=== PATIENT | female | born 1955 | race Caucasian/White ===

== ENCOUNTER 2019-06-14 11:30 | Outpatient (CLI) | payer BC, SELFPAY ==
--- NOTE | ~2019-06-14 | MM_ITS ---
EXAMINATION: MM screening [facility]ia BI w yvon HISTORY: Screening mammogram TECHNIQUE: Craniocaudal and mediolateral oblique 3-D tomosynthesis images were obtained and synthetic 2-D images were generated. CAD analysis was submitted and interpreted. COMPARISON: 6 06/01/2018, 05/07/2017, 02/11/2016 bilateral digital screening mammogram examinations BREAST PARENCHYMAL COMPOSITION: There are scattered areas of fibroglandular density. FINDINGS: There is no evidence of suspicious mass, calcification, or architectural distortion to sugg est malignancy in either breast. There has been no suspicious interval change. IMPRESSION: 1. No mammographic evidence of malignancy. 2. Recommend routine screening mammography in one year. BI-RADS Category 1: Negative Reviewed, dictated and finalized at location A. ENTER/LABOR
== END 2019-06-14 11:31 | disposition home or self-care (01) ==
LOC: ANHIMG 11:34
PROVIDERS: PCP Family Medicine; Visit Provider Obstetrics & Gynecology
DX: Z12.31 Encounter for screening mammogram for malignant neoplasm of breast (principal)
CPT/HCPCS: 77063; 77067

== ENCOUNTER 2019-11-16 11:09 | Emergency (ER) | payer BC, SELFPAY ==
[2019-11-16 11:15] VITALS: BP 151/76; PULSE 74; RESP 16; TEMP 36.3; O2SAT 99
[2019-11-16 11:16] LABS: Glucose Point of Care 166 (65-105)
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
[2019-11-16 11:42] LABS: Basophils Absolute Auto 0.1 K/mm3 (0.0-0.1); Basophils Percent Auto 1.1 % (0.2-1.2); Eosinophils Absolute Auto 0.2 K/mm3 (0-0.3); Eosinophils Percent Auto 3.1 % (0-4.4); Hematocrit 57.7 % (37.0-47.0); Hemoglobin 17.6 g/dL (12.0-15.0); Immature Granulocyte Absolute 0.02 K/mm3 (0.00-0.031); Immature Granulocyte Percent A 0.3 % (0-0.5); Lymphocytes Absolute Auto 1.09 K/mm3 (0.9-3.2); Lymphocytes Percent Auto 15.2 % (18.3-44.2); Mean Corpuscular HGB Conc 30.5 g/dl (32-36); Mean Corpuscular Hemoglobin 24.1 pg (26-34); Mean Corpuscular Volume 79.1 fl (80-100); Mean Platelet Volume 10.7 fl (7.4-10.4); Monocytes Absolute Auto 0.4 K/mm3 (0.1-0.6); Monocytes Percent Auto 5.3 % (2.6-8.5); Neutrophils Absolute Auto 5.4 K/mm3 (1.3-6.7); Platelet Count Result 259 k/mm3 (150-375); Red Blood Count 7.29 M/mm3 (4.2-5.4); Red Cell Distribution Width 17.2 % (11.5-14.5); White Blood Count 7.2 K/mm3 (4.5-10.0)
[2019-11-16 11:53] LABS: Blood Urea Nitrogen 19 mg/dL (7-17); Calcium 9.4 mg/dL (8.4-10.2); Carbon Dioxide 31 mmol/L (22-30); Chloride 96 mmol/L (98-107); Estimated CRCL calculation 63 ml/min; Estimated Glomerular Filt Rate > 60; Glucose 170 mg/dL (65-105); Potassium 3.8 mmol/L (3.4-5.0); Sodium 134 mmol/L (137-145)
[2019-11-16 13:20] VITALS: BP 152/66; PULSE 68; RESP 16; O2SAT 98
[2019-11-16 13:39] VITALS: BP 152/66; PULSE 68; RESP 18; TEMP 37; O2SAT 99
== END 2019-11-16 13:41 | disposition home or self-care (01) ==
PROVIDERS: Emergency Medicine Emergency Medical Services; Emergency Provider Emergency Medicine; PCP Family Medicine
DX: E10.649 Type 1 diabetes mellitus with hypoglycemia without coma (principal); Z79.4 Long term (current) use of insulin; Z96.41 Presence of insulin pump (external) (internal); E78.5 Hyperlipidemia, unspecified; Z86.73 Personal history of transient ischemic attack (TIA), and cerebral infarction without residual deficits; M17.12 Unilateral primary osteoarthritis, left knee; Z87.891 Personal history of nicotine dependence; Z79.82 Long term (current) use of aspirin
CPT/HCPCS: 36415; 80048; 85025; 99283

== ENCOUNTER 2019-12-06 00:35 | Emergency (ER) | payer BC, SELFPAY ==
[2019-12-06 00:34] VITALS: BP 187/138; PULSE 63; RESP 21; O2SAT 97
[2019-12-06 00:42] VITALS: RESP 18
--- NOTE | 2019-12-06 00:42 | ECG_ITS ---
Measurements Intervals [place] Rate: 58 P: 5 NE: 149 QRS: 29 QRSD: 93 T: 34 QT: 431 QTc: 424 Interpretive Statements SINUS BRADYCARDIA BASELINE ARTIFACT- I, III, V1 BORDERLINE ECG Electronically Signed On 12-06-2019 7:17:08 CDT by Everton Trent D.O.
[2019-12-06 00:51] LABS: Glucose Point of Care 177 (65-105)
[2019-12-06 01:10] LABS: Basophils Absolute Auto 0.2 K/mm3 (0.0-0.1); Basophils Percent Auto 1.1 % (0.2-1.2); Eosinophils Absolute Auto 0.3 K/mm3 (0-0.3); Eosinophils Percent Auto 2.4 % (0-4.4); Hematocrit 60.4 % (37.0-47.0); Immature Granulocyte Absolute 0.06 K/mm3 (0.00-0.031); Immature Granulocyte Percent A 0.4 % (0-0.5); Lymphocytes Absolute Auto 1.19 K/mm3 (0.9-3.2); Lymphocytes Percent Auto 8.5 % (18.3-44.2); Mean Corpuscular HGB Conc 31.5 g/dl (32-36); Mean Corpuscular Hemoglobin 24.4 pg (26-34); Mean Corpuscular Volume 77.5 fl (80-100); Mean Platelet Volume 11.3 fl (7.4-10.4); Monocytes Absolute Auto 0.9 K/mm3 (0.1-0.6); Monocytes Percent Auto 6.7 % (2.6-8.5); Neutrophils Absolute Auto 11.3 K/mm3 (1.3-6.7); Neutrophils Percent Auto 80.9 % (45.5-73.1); Platelet Count Result 381 k/mm3 (150-375); Red Blood Count 7.79 M/mm3 (4.2-5.4); Red Cell Distribution Width 18.4 % (11.5-14.5)
[2019-12-06 01:19] LABS: Add Urine Microscopic? YES; Appearance Urine Clear (Clear); Bilirubin Urine Negative (Negative); Blood Urine Negative (Negative); Color Urine Straw (Yellow); Glucose Urine UA 2+ mg/dL (Negative); Ketones Urine Negative (Negative); Leukocyte Esterase Ur Negative LEU/UL (Negative); Nitrate Urine Negative (Negative); Protein Urine 2+ mg/dL (Negative); RBC Urine 0-2 /hpf (0-2); Specific Grav Ur 1.014 (1.001-1.035); Urobilinogen Urine Negative mg/dL (<2.0); WBC Urine 0-3 /hpf
[2019-12-06 01:22] LABS: Alanine Aminotransferase 49 U/L (4-35); Albumin Level 4.9 g/dL (3.5-5.1); Alkaline Phosphatase 107 U/L (38-126); Aspartate Amino Transferase 73 U/L (14-36); Bilirubin,Total 1.2 mg/dL (0.2-1.3); Blood Urea Nitrogen 25 mg/dL (7-17); Calcium 9.5 mg/dL (8.4-10.2); Carbon Dioxide 32 mmol/L (22-30); Chloride 95 mmol/L (98-107); Estimated CRCL calculation 39 ml/min; Estimated Glomerular Filt Rate 50; Glucose 145 mg/dL (65-105); Sodium 138 mmol/L (137-145)
--- NOTE | 2019-12-06 01:31 | ED.AMS ---
HPI - Altered Mental Status General Chief Complaint: Altered Mental Status Stated Complaint: low bs Time Seen by Provider: 12/06/19 00:50 History of Present Illness HPI narrative: Patient presents via EMS from her home, for low blood sugar, loss of consciousness, and fall from bed. She wears an insulin pump for her diabetes, with Humalog. She denies taking any long-acting insulin. Her son heard a thump and went up and found her on the floor unconscious. EMS found her sugar to be 27, and gave her D10 which revived her. She is fully back to consciousness, and has no pain from the fall. This is happened to her before. She does not smoke cigarettes, she sometimes drinks alcohol, and she does marijuana. Her surgeries include repair of a leg fracture. MD complaint: altered mental status Onset (ago): hour(s) Timing confirmed by: family member Severity: similar to previous episodes Context: history of similar presentation Associated symptoms: denies other symptoms Treatments prior to arrival: glucose Related Data Home Medications Medication Instructions Recorded Confirmed aspirin 81 mg tablet,delayed 81 mg PO DAILY 04/19/19 08/02/19 release biotin 1,000 mcg chewable tablet 1,000 mcg PO DAILY 04/19/19 08/02/19 cholecalciferol (vitamin D3) 25 1,000 unit PO DAILY 04/19/19 08/02/19 mcg (1,000 unit) capsule vitamin B12 1,000 mcg-folic acid lozenge SUBLINGUAL 04/19/19 08/02/19 400 mcg sublingual lozenge vitamin E 400 unit capsule 400 unit PO DAILY 04/19/19 08/02/19 gabapentin 600 mg PO BID 11/16/19 oxybutynin chloride 5 mg tablet 15 mg PO TID tablet 11/17/19 oxycodone 5 mg capsule 5 mg PO Q8H PRN 11/17/19 Allergies Allergy/AdvReac Type Severity Reaction Status Date / Time No Known Allergies Allergy Verified 06/03/19 16:19 Review of Systems Review of Systems: Narrative: CONSTITUTIONAL: Denies fever, chills, or sweats. EYES: Denies visual changes, redness, or discharge. ENT: Denies rhinorrhea, congestion, sore throat, or otalgia. CARDIOVASCULAR: Denies chest pain, palpitations, or edema. RESPIRATORY: Denies cough or dyspnea. GASTROINTESTINAL: Denies abdominal pain, nausea, vomiting, or diarrhea. GENITOURINARY: Denies dysuria or hematuria. SKIN: Denies rash or itching. MUSCULOSKELETAL: Denies back pain, joint pain, or myalgia. NEUROLOGIC: Denies headache, numbness, or weakness. [facility] Past Medical History Medical History Acquired hypothyroidism Anemia History of stroke HLD (hyperlipidemia) Hypothyroid Insomnia Localized osteoarthritis of left knee OAB (overactive bladder) Type 1 diabetes mellitus with hyperglycemia Surgical History Surgical History H/O tubal ligation Family History Family History (Updated 11/25/18 @ 08:51 by DOCTOR UNKNOWN) Mother Family history of diabetes mellitus in first degree relative Other Diabetes mellitus Family history of thyroid disease Social History Social History (Updated 12/06/19 @ 01:33 by Safia Crowder MD) Smoking status: Former smoker Smoking end date: 05/18/10 Alcohol intake: current Substance use: current Substance use type: marijuana Gender identity (if verbalized by the patient): Male Exam Narrative: Exam Narrative: GENERAL: Well-appearing, well-nourished, and in no acute distress. She has an abrasion on the tip of her nose. HEAD: Normocephalic, atraumatic. EYES: PERRLA and EOMI. ENT: Nares clear, no rhinorrhea or epistaxis. Mucous membranes moist. NECK: Supple. CHEST: Clear to auscultation. No respiratory distress. HEART: Regular rate and rhythm. No murmur heard. Normal peripheral pulses. ABDOMEN: Soft, nontender, nondistended, normal active bowel sounds. EXTREMITIES: Normal range of motion. No edema. Feet are cool. SKIN: Warm, dry, no rash. NEURO: No focal deficits. Alert and oriented x3. PSYCH: Normal mood and affect.
[2019-12-06] MEDS: SODIUM CHLORIDE 0.9% IV 1,000 ML 999 ML IV CONT (01:45)
[2019-12-06 02:02] LABS: Amphetamine Screen Urine Negative (Negative); Barbiturate Screen Urine Negative (Negative); Benzodiazepines Screen Urine Negative (Negative); Cannabinoid Screen Urine Positive (Negative); Cocaine Screen Urine Negative (Negative); Methadone Screen Urine Negative (Negative); Opiate Screen Urine Negative (Negative); Phencyclidine Screen Urine Negative (Negative)
[2019-12-06 02:28] VITALS: BP 160/74; PULSE 70; RESP 15; O2SAT 94
[2019-12-06 03:25] LABS: Ethanol < 10 mg/dL (<10)
[2019-12-06 03:40] VITALS: BP 152/70; PULSE 71; RESP 16; O2SAT 96
[2019-12-06 03:58] LABS: Glucose Point of Care 237 (65-105)
--- NOTE | 2019-12-06 04:10 | PC.NURSE ---
Patient given meal at this time.
[2019-12-06 05:05] VITALS: BP 149/88; PULSE 67; RESP 19; TEMP 36.6; O2SAT 96
== END 2019-12-06 05:09 | disposition home or self-care (01) ==
PROVIDERS: Emergency Provider Emergency Medicine; PCP Family Medicine
DX: D75.1 Secondary polycythemia (principal); D47.3 Essential (hemorrhagic) thrombocythemia; E88.09 Other disorders of plasma-protein metabolism, not elsewhere classified; E10.649 Type 1 diabetes mellitus with hypoglycemia without coma; R55 Syncope and collapse; R94.5 Abnormal results of liver function studies; D72.829 Elevated white blood cell count, unspecified; W06.XXXA Fall from bed, initial encounter; Z87.891 Personal history of nicotine dependence; E78.5 Hyperlipidemia, unspecified; E03.9 Hypothyroidism, unspecified
CPT/HCPCS: 36415; 80053; 80307; 81001; 81025; 82948; 85025; 93005; 96360; 99284; J7030

== ENCOUNTER 2020-04-18 14:30 | Outpatient (RCR) | payer BC, SELFPAY | END 2020-04-20 16:15 | disposition home or self-care (01) | LOC: ANHDMC 14:30 | PROVIDERS: PCP Family Medicine; Visit Provider Internal Medicine Endocrinology, Diabetes & Metabolism | DX: E10.9 Type 1 diabetes mellitus without complications (principal); Z71.89 Other specified counseling | CPT/HCPCS: G0108; G0109 ==

== ENCOUNTER 2020-05-09 23:44 | Inpatient (IN) | payer BC, SELFPAY ==
--- NOTE | ~2020-05-09 | CT_ITS ---
EXAMINATION: CT brain wo con EXAM DATE: 05/10/2020 00:18 INDICATION: Altered mental status. TECHNIQUE: Spiral CT of the head was performed without contrast. Axial, coronal and sagittal images were reviewed. The dose-length product (DLP) for this examination was 605.33 mGy-cm. The exposure w as tailored according to patient size, and iterative reconstruction (ASIR) was used as additional dos e reduction technique. Comparison is made to prior examination from 09/07/2017. FINDINGS: There is no acute intraparenchymal hemorrhage. No evidence of intraparenchymal brain mass lesion. No evidence of acute infarction. Please note that initial head CT has limited sensitivity f or small or acute infarctions. Moderate-sized old left frontal lobe infarction. There is mild periv entricular and subcortical hypodensity, nonspecific but probably related to small vessel ischemic dis ease. There is mild prominence of the sulci and ventricles related to cerebral atrophy. There is intracranial carotid arteriosclerosis. There are no extra-axial collections. There is no mass effect or midline shift. The orbits are unremarkable. Soft tissue is unremarkable. The visua lized sinuses and mastoid air cells are well aerated. IMPRESSION: 1. Moderate size old left frontal lobe infarction. 2. Chronic age related findings. Reviewed, dictated and finalized at location A. RMAN
--- NOTE | ~2020-05-09 | XR_ITS ---
EXAMINATION: XR chest 1V portable EXAM DATE: 05/10/2020 01:04 INDICATION: Transient alteration of awareness. TECHNIQUE: Portable AP frontal chest x-ray was obtained. There is no prior study for comparison. FINDINGS: The lungs are clear. There are no pleural effusions. The cardiomediastinal silhouette is within normal limits. There is no pneumothorax suspected. The bones and soft tissues are unremarkab le. IMPRESSION: No acute cardiopulmonary findings. Reviewed, dictated and finalized at location A. NG STUFFER
--- NOTE | 2020-05-09 23:42 | ECG_ITS ---
Measurements Intervals [place] Rate: 95 P: 66 MA: 108 QRS: 39 QRSD: 104 T: 10 QT: 369 QTc: 466 Interpretive Statements SINUS RHYTHM WITH SHORT MA INTERVAL BORDERLINE T WAVE ABNORMALITY- INFERIOR LEADS BASELINE ARTIFACT- V3 BORDERLINE ECG Electronically Signed On 05-10-2020 8:00:25 FUR SORTER by Everton Trent D.O.
[2020-05-09 23:46] VITALS: BP 114/73; PULSE 105; RESP 15; TEMP 36.6; O2SAT 98
--- NOTE | 2020-05-09 23:49 | ED.AMS ---
HPI - Altered Mental Status General Chief Complaint: Altered Mental Status Stated Complaint: vomiting blood/ AMS Source: EMS Mode of arrival: EMS Limitations: altered mental status History of Present Illness HPI narrative: Patient is a 64-year-old female with a history of type 1 diabetes who presents for evaluation of altered mental status. Patient's son reportedly called this evening after she had an episode of bloody emesis around 9 PM, and became confused. Confusion persisted over the past 3 hours, patient had another episode of bloody emesis and EMS was called. The time of arrival, patient is confused, alert to person, not to place or time. Baseline status is ANO x4. Patient is known to the EMS crew for typically being hypoglycemic, however patient was hyperglycemic with [id number] measurement tonight. Patient with oxygen saturations at 86% on room air, thus patient was placed on a nonrebreather and transported to our facility. At the time of assessment, patient is transiently oriented to person and place, not to time. She is able to follow simple commands, not able to provide any details regarding history or events this evening. Related Data Home Medications Medication Instructions Recorded Confirmed aspirin 81 mg tablet,delayed 81 mg PO DAILY 04/19/19 08/02/19 release biotin 1,000 mcg chewable tablet 1,000 mcg PO DAILY 04/19/19 08/02/19 cholecalciferol (vitamin D3) 25 1,000 unit PO DAILY 04/19/19 08/02/19 mcg (1,000 unit) capsule vitamin B12 1,000 mcg-folic acid lozenge SUBLINGUAL 04/19/19 08/02/19 400 mcg sublingual lozenge vitamin E 400 unit capsule 400 unit PO DAILY 04/19/19 08/02/19 oxybutynin chloride 5 mg tablet 15 mg PO TID tablet 11/17/19 oxycodone 5 mg capsule 5 mg PO Q8H PRN 11/17/19 Allergies Allergy/AdvReac Type Severity Reaction Status Date / Time No Known Allergies Allergy Verified 06/03/19 16:19 Review of Systems Review of Systems: ROS unobtainable: Yes unobtainable due to mental status PMFSH Past Medical History Medical History Acquired hypothyroidism Anemia History of stroke HLD (hyperlipidemia) HTN (hypertension) Hypothyroid Insomnia Localized osteoarthritis of left knee OAB (overactive bladder) Type 1 diabetes mellitus with hyperglycemia Surgical History Surgical History H/O tubal ligation Family History Family History Mother Family history of diabetes mellitus in first degree relative Other Diabetes mellitus Family history of thyroid disease Social History Social History Smoking status: Former smoker Smoking end date: 05/18/10 Alcohol intake: current Substance use: current Substance use type: marijuana Gender identity (if verbalized by the patient): Male Exam Narrative: Exam Narrative: GENERAL: Awake, alert, confused HEAD: Normocephalic, atraumatic. EYES: PERRLA and EOMI. ENT: Nares clear, no rhinorrhea or epistaxis. Mucous membranes moist. Dried blood present around the mouth. NECK: Supple. CHEST: No respiratory distress, breathing even and non labored HEART: Regular rate, sinus rhythm ABDOMEN:Non distended, non tender EXTREMITIES: Normal range of motion. No edema. SKIN: Warm, dry, no rash. NEURO:No focal deficits. Mold Preparer strength out of 5 bilaterally. Strength in the upper and lower extremities 5 out of 5 bilaterally. No facial droop. No tongue deviation. Alert to person, place, not to time. Disoriented. Course Vital Signs Vital signs: Vital Signs Temperature 36.6 C 05/09/20 23:46 Pulse Rate 105 H 05/09/20 23:46 Respiratory Rate 15 05/09/20 23:46 Blood Pressure 114/73 05/09/20 23:46 Pulse Oximetry 98 05/09/20 23:46 Temperature 36.6 C 05/09/20 23:46 Pulse Rate 105 H 05/09/20 23:46 Respiratory Rat
[2020-05-10] VITALS (33 sets, daily range): BP systolic 70–140; BP diastolic 36–94; PULSE 90–125; RESP 17–27; TEMP 35.9–37.2; O2SAT 89–100; BMI 17.6
[2020-05-10 00:04] LABS: Alveolar/Arterial O2 Gradient 68.9 mmHg; Base Excess ABG -15.5 mEq/l (+/-2.0); Carboxyhemoglobin 1.4 % THb (0-2.0); Fractional Inspired Oxygen 21 %; HCO3 ABG 10.4 mEq/l (22.0-26.0); Methemoglobin ABG 0.6 %THb (0-1.5); Oxygen Content ABG 17.4 %vol (16.0-22.0); Oxyhemoglobin 79.2 % THb (90.0-100.0); PCO2 ABG 25.9 mmHg (35.0-45.0); PO2 FiO2 Ratio Arterial Blood 2.37 %; Reduced Hemoglobin 18.8 %THb (0-5.0); Total Hemoglobin 15.7 g/dL (12.0-18.0)
[2020-05-10] MEDS: ONDANSETRON INJ 4 MG/2 ML VIAL IV PUSH (00:05)
[2020-05-10] MEDS: SODIUM CHLORIDE 0.9% IV 1,000 ML 999 ML IV CONT ×3 (00:05→04:30)
[2020-05-10 00:08] LABS: PO2 ABG 49.8 mmHg (80.0-100.0); pH ABG 7.221 (7.350-7.450)
[2020-05-10 00:09] LABS: Device ROOM AIR; Modified Allen's Test Pass; Oxygen Saturation ABG 78.6 % (95.0-100.0); Site Drawn LEFT RADIAL
[2020-05-10 00:40] LABS: Basophils Absolute Auto 0.1 K/mm3 (0.0-0.1); Basophils Percent Auto 0.2 % (0.2-1.2); Eosinophils Absolute Auto 0.1 K/mm3 (0-0.3); Eosinophils Percent Auto 0.2 % (0-4.4); Hematocrit 49.7 % (37.0-47.0); Hemoglobin 15.1 g/dL (12.0-15.0); Immature Granulocyte Absolute 1.38 K/mm3 (0.00-0.031); Immature Granulocyte Percent A 3.7 % (0-0.5); Lymphocytes Absolute Auto 2.74 K/mm3 (0.9-3.2); Lymphocytes Percent Auto 7.3 % (18.3-44.2); Mean Corpuscular HGB Conc 30.4 g/dl (32-36); Mean Corpuscular Hemoglobin 23.8 pg (26-34); Mean Corpuscular Volume 78.4 fl (80-100); Monocytes Absolute Auto 2.8 K/mm3 (0.1-0.6); Monocytes Percent Auto 7.3 % (2.6-8.5); Neutrophils Absolute Auto 30.4 K/mm3 (1.3-6.7); Neutrophils Percent Auto 81.3 % (45.5-73.1); Platelet Count Result 576 k/mm3 (150-375); Red Blood Count 6.34 M/mm3 (4.2-5.4); Red Cell Distribution Width 18.6 % (11.5-14.5); White Blood Count 37.5 K/mm3 (4.5-10.0)
[2020-05-10 00:43] LABS: Glucose Point of Care > 500 (65-105)
[2020-05-10] MEDS: HALOPERIDOL LACTATE 5 MG/ML VIAL IV PUSH (00:43)
[2020-05-10 00:55] LABS: Alanine Aminotransferase 28 U/L (4-35); Alkaline Phosphatase 120 U/L (38-126); Anion Gap 27 mmol/L (8-16); Aspartate Amino Transferase 30 U/L (14-36); Bilirubin,Total 2.9 mg/dL (0.2-1.3); Blood Urea Nitrogen 42 mg/dL (7-17); Calcium 8.6 mg/dL (8.4-10.2); Carbon Dioxide 12 mmol/L (22-30); Chloride 88 mmol/L (98-107); Estimated CRCL calculation 41 ml/min; Estimated Glomerular Filt Rate 42; Potassium 5.6 mmol/L (3.4-5.0); Sodium 127 mmol/L (137-145)
[2020-05-10 00:59] LABS: INR 1.4; Partial Thromboplastin Time 36.8 SECONDS (22.3-36.8); Prothrombin Time 18.2 Seconds (11.1-14.7)
[2020-05-10 00:59] LABS: Ammonia 22 umol/L (9-30)
[2020-05-10] MEDS: LORazepam INJ (*CRX) 2 MG/ML VIAL 1 MG IV PUSH (01:01)
[2020-05-10 01:02] LABS: Anisocytosis 1+ (NORMAL); Platelet Estimate Adequate (Adequate)
[2020-05-10 01:06] LABS: Troponin I 0.012 ng/mL (0.000-0.034)
[2020-05-10] MEDS: diphenhydrAMINE HCl INJ 50 MG/ML VIAL 25 MG IV PUSH (01:07)
[2020-05-10 01:08] LABS: Lactic Acid Reflex 4.2 mmol/L (0.7-2.1)
[2020-05-10 01:09] LABS: Glucose 737 mg/dL (65-105)
[2020-05-10] MEDS: LORazepam INJ (*CRX) 2 MG/ML VIAL IV PUSH (01:50)
[2020-05-10] MEDS: INSULIN HUMAN REGULAR (*BKC) 100 UNITS/ML 7 UNITS IV PUSH (01:57)
[2020-05-10] MEDS: INSULIN HUMAN REGULAR (*BKC) 100 UNITS in SODIUM CHLORIDE 0.9% IV 99 ML 8.8 UNITS IV CONT (02:08)
--- NOTE | 2020-05-10 03:02 | PM.IMHP ---
H&P: HPI History of Present Illness Date/Time: 05/10/20 03:02 Chief Complaint: Hyperglycemia and altered mental status Narrative: This is a 64-year-old type 1 diabetic female who is also known to have chronic hypothyroidism and presented to the hospital this evening for evaluation of acute altered mental status. The patient's son who is at bedside states that she has had nausea and vomiting for the past 2 days and became increasingly confused this evening. She had 1 episode of bloody emesis around 9:00 p.m. and her son found her to be confused. The patient is known to use an insulin pump and her son is not sure if the patient accidentally shot it off or paused it. EMS was called and the patient was found to be hypoxic on room air and hyperglycemic. The patient was evaluated emergency room this evening and found to be in acute DKA and severely dehydrated. Routine labs [place] [address], a blood glucose level of 737 mg/dl, and anion gap of 27, a serum bicarb level of 12, and a lactic acid of 4.2. The patient was treated with 2 L of IV fluidNS bolus, wide-spectrum antibiotics IV, and IV insulin. the patient did become combative and uncooperative and was treated with various doses IV Ativan, Haldol, and Benadryl. On my encounter with the patient this evening she is medicated and very somnolent. She cannot answer any questions appropriately. ER provider has consulted our harness fitter. Urinalysis is currently pending. The patient arrived to the ICU from the ER severely hypotensive with blood pressures of 70s/40s. Review of Systems Review of Systems: ROS unobtainable: Yes unobtainable due to medical condition and unobtainable due to mental status PMF Past Medical History Medical History Acquired hypothyroidism Anemia History of stroke HLD (hyperlipidemia) HTN (hypertension) Hypothyroid Insomnia Localized osteoarthritis of left knee OAB (overactive bladder) Type 1 diabetes mellitus with hyperglycemia Surgical History Surgical History H/O tubal ligation Family History Family History Mother Family history of diabetes mellitus in first degree relative Other Diabetes mellitus Family history of thyroid disease Social History Social History Smoking status: Former smoker Smoking end date: 05/18/10 Alcohol intake: current Substance use: current Substance use type: marijuana Gender identity (if verbalized by the patient): Male Spiritual care concerns: No Meds Home Medications and Allergies Home Medications Medication Instructions Recorded Confirmed Type aspirin 81 mg tablet,delayed 81 mg PO DAILY 04/19/19 05/10/20 History release biotin 1,000 mcg chewable tablet 1,000 mcg PO DAILY 04/19/19 05/10/20 History cholecalciferol (vitamin D3) 25 1,000 unit PO DAILY 04/19/19 05/10/20 History mcg (1,000 unit) capsule atorvastatin 20 mg tablet 20 mg PO DAILY #90 tablet 08/18/19 05/10/20 Rx oxybutynin chloride 5 mg tablet 15 mg PO TID tablet 11/17/19 05/10/20 History oxycodone 5 mg capsule 5 mg PO Q8H PRN 11/17/19 05/10/20 History insulin aspart (niacinamide) See Rx Instructions SUBCUT DAILY 03/06/20 05/10/20 Rx (U-100) 100 unit/mL subcutaneous 90 Days #60 ml solution levothyroxine 150 mcg tablet 150 mcg PO DAILY 31 Days #31 tablet 03/15/20 05/10/20 Rx gabapentin 300 mg capsule 600 mg PO TID #180 cap 04/09/20 05/10/20 Rx nadolol 40 mg tablet See Rx Instructions .ROUTE 04/18/20 05/10/20 Rx .COMPLEX #45 each trazodone 100 mg tablet 100 mg PO DAILY #60 tablet 04/25/20 05/10/20 Rx ondansetron 4 mg disintegrating 4 mg PO Q8H PRN #12 tablet 05/09/20 05/10/20 Rx tablet Allergies Allergy/AdvReac Type Severity Reaction Status Date / Time No Known A
[2020-05-10 03:36] LABS: Glucose Point of Care > 500 (65-105)
[2020-05-10] MEDS: INSULIN HUMAN REGULAR (*BKC) 100 UNITS in SODIUM CHLORIDE 0.9% IV 99 ML 13.5 UNITS IV CONT (03:36)
[2020-05-10 03:38] LABS: Reflex Lactic Acid Yes or No Add Lactic
[2020-05-10] MEDS: SODIUM CHLORIDE 0.9% IV 1,000 ML 150 ML IV CONT ×2 (04:17→10:15)
[2020-05-10 04:47] LABS: Add Urine Microscopic? YES; Appearance Urine Clear (Clear); Bilirubin Urine Negative (Negative); Blood Urine Negative (Negative); Color Urine Yellow (Yellow); Glucose Urine UA 3+ mg/dL (Negative); Ketones Urine 1+ mg/dL (Negative); Leukocyte Esterase Ur Negative LEU/UL (Negative); Nitrate Urine Negative (Negative); Protein Urine Negative (Negative); RBC Urine 0-2 /hpf (0-2); Specific Grav Ur 1.017 (1.001-1.035); Squamous Epithelial Cell Urine Rare /hpf (Few); Urobilinogen Urine Negative mg/dL (<2.0); WBC Urine 0-3 /hpf
[2020-05-10 04:53] LABS: Glucose Point of Care > 500 (65-105)
[2020-05-10 04:55] LABS: Amphetamine Screen Urine Negative (Negative); Barbiturate Screen Urine Negative (Negative); Benzodiazepines Screen Urine Negative (Negative); Cannabinoid Screen Urine Negative (Negative); Cocaine Screen Urine Negative (Negative); Methadone Screen Urine Negative (Negative); Opiate Screen Urine Negative (Negative); Phencyclidine Screen Urine Negative (Negative)
[2020-05-10 04:59] LABS: Alveolar/Arterial O2 Gradient 32.4 mmHg; Base Excess ABG -16.4 mEq/l (+/-2.0); Fractional Inspired Oxygen 21 %; HCO3 ABG 9.8 mEq/l (22.0-26.0); Oxygen Content ABG 17.2 %vol (16.0-22.0); Oxyhemoglobin 94.5 % THb (90.0-100.0); PCO2 ABG 24.9 mmHg (35.0-45.0); PO2 ABG 87.5 mmHg (80.0-100.0); PO2 FiO2 Ratio Arterial Blood 4.17 %; Total Hemoglobin 12.9 g/dL (12.0-18.0)
[2020-05-10 05:02] LABS: Device ROOM AIR; Modified Allen's Test Pass; Site Drawn RIGHT RADIAL; pH ABG 7.211 (7.350-7.450)
[2020-05-10 05:51] LABS: Hemoglobin 12.1 g/dL (12.0-15.0); Mean Corpuscular HGB Conc 29.5 g/dl (32-36); Mean Corpuscular Hemoglobin 23.4 pg (26-34); Mean Corpuscular Volume 79.5 fl (80-100); Mean Platelet Volume 11.3 fl (7.4-10.4); Platelet Count Result 385 k/mm3 (150-375); Red Blood Count 5.16 M/mm3 (4.2-5.4); Red Cell Distribution Width 16.9 % (11.5-14.5); White Blood Count 34.6 K/mm3 (4.5-10.0)
--- NOTE | 2020-05-10 06:08 | WPDPROCEDUR ---
Procedures Central Line Placement Right Femoral: Central Line Date: 05/10/20 Central Line Time: 05:45 Performed Emergently - Given emergent patient condition, temporal constraints may have precluded informed consent.: Yes Time Out Performed: Yes Patient Position: supine Patient placed on monitor/pulse ox: Yes Provider Prep: mask, sterile gown, sterile gloves, Max. sterile barrier precautions, cap and hand hygiene with conventional soap/water or alcohol based hand rub Central line prep: 2% Chlorhexidine scrub Local anesthesia used: lidocaine 1% Amount of anesthesia used (ml): 4 Sterile US Technique with sterile gel/sterile probe covers: Yes Central line lumen inserted: triple [place]: 7 Length (cm): 20 Depth of Insertion (cm): 20 Post Procedure: sutured in place, good blood return, all ports aspirated, flushed, capped, transparent dressing, securement product and aseptic technique maintained throughout procedure Patient tolerated procedure: well Complications: none Additional comments: Date of service was 05/10/2020 at 05:45 hrs.
[2020-05-10 06:14] LABS: Lactic Acid 3.6 mmol/L (0.7-2.1)
[2020-05-10 06:27] LABS: Band Neutrophils Percent 5 % (0-6); Lymphocytes Absolute Manual 3.11 K/mm3 (1.1-4.5); Monocytes Absolute Manual 2.07 K/mm3 (0.1-0.90); Monocytes Percent Manual 6 % (3-9); Neutrophils Absolute Manual 29.41 K/mm3 (1.7-7.2); Neutrophils Percent Manual 80 % (46-73); Total Cells Counted 100
[2020-05-10 06:28] LABS: Large Platelets Present; Platelet Estimate Adequate (Adequate)
[2020-05-10 06:29] LABS: Hypochromasia 1+ (NORMAL); Smudge Cells PRESENT
[2020-05-10 06:34] LABS: Magnesium 1.8 mg/dL (1.6-2.3); Phosphorus 5.4 mg/dL (2.5-4.5)
[2020-05-10] MEDS: NOREPINEPHRINE 8 MG/D5W 250 ML 8 MG/250 ML BAG 9.38 MG IV CONT (06:47)
[2020-05-10 06:53] LABS: Glucose Point of Care > 500 (65-105)
[2020-05-10 06:53] LABS: Glucose Point of Care > 500 (65-105)
[2020-05-10 06:53] LABS: Glucose Point of Care > 500 (65-105)
[2020-05-10 07:24] LABS: Anion Gap 24 mmol/L (8-16); Blood Urea Nitrogen 52 mg/dL (7-17); Calcium 7.4 mg/dL (8.4-10.2); Carbon Dioxide 10 mmol/L (22-30); Chloride 97 mmol/L (98-107); Estimated CRCL calculation 33 ml/min; Estimated Glomerular Filt Rate 33; Glucose 636 mg/dL (65-105); Potassium 4.2 mmol/L (3.4-5.0); Sodium 131 mmol/L (137-145)
[2020-05-10] MEDS: SODIUM BICARBONATE 8.4% 50 MEQ/50 ML SYRINGE 100 MEQ IV PUSH (07:32)
[2020-05-10] MEDS: LEVOTHYROXINE SODIUM INJ 100 MCG/5 ML VIAL 75 MCG IV PUSH (07:50)
[2020-05-10 07:57] LABS: Glucose Point of Care > 500 (65-105)
[2020-05-10 08:23] LABS: Beta-Hydroxybutyrate/Acetoacetate 6.69 mmol/L (0.02-0.27)
[2020-05-10] MEDS: INSULIN HUMAN REGULAR (*BKC) 100 UNITS in SODIUM CHLORIDE 0.9% IV 99 ML 17.95 UNITS IV CONT (09:07)
[2020-05-10 09:47] LABS: Glucose Point of Care 419 (65-105)
[2020-05-10 10:19] LABS: Anion Gap 7 mmol/L (8-16); Blood Urea Nitrogen 53 mg/dL (7-17); Calcium 7.4 mg/dL (8.4-10.2); Carbon Dioxide 26 mmol/L (22-30); Chloride 102 mmol/L (98-107); Estimated CRCL calculation 36 ml/min; Estimated Glomerular Filt Rate 50; Glucose 360 mg/dL (65-105); Potassium 3.6 mmol/L (3.4-5.0); Sodium 135 mmol/L (137-145)
[2020-05-10 10:19] LABS: Glucose Point of Care 350 (65-105)
--- NOTE | 2020-05-10 11:04 | WPDCNINT ---
Assessment and Plan Assessment and plan (1) Septic shock: Code(s): A41.9 - Sepsis, unspecified organism; R65.21 - Severe sepsis with septic shock Status: Acute Assessment and Plan: Source is not clear this time Patient has received IV fluid bolus and is now IV maintenance fluid Continue Levophed titration to maintain mean arterial pressure Blood cultures urine cultures have been sent and are pending Chest x-ray and UA are not suggestive of infection but may be early Continue broad-spectrum antibiotics vancomycin and cefepime. It is possible patient may have aspirated due to altered mental status and I will change cefepime to Zosyn for anaerobic coverage Two amps of bicarb given (2) Encephalopathy: Code(s): G93.40 - Encephalopathy, unspecified Status: Acute Assessment and Plan: Likely multifactorial toxic metabolic encephalopathy Patient presented with confusion and was found to be in DKA and septic shock but later received several doses of sedatives in the ED Head CT was negative for acute changes and showed old infarct Continue to monitor in ICU and hold further sedation May need Precedex infusion if if agitated and interferes with treatment NPO Neurochecks (3) DKA (diabetic ketoacidoses): Qualifiers: Diabetes mellitus complication detail: without coma Diabetes mellitus type: type 1 Qualified Code(s): E10.10 - Type 1 diabetes mellitus with ketoacidosis without coma Code(s): E11.10 - Type 2 diabetes mellitus with ketoacidosis without coma Status: Acute Assessment and Plan: Patient is in acute DKA with mixed acidosis Not sure how much insulin patient takes as she is on insulin pump and unable to provide any history Continue insulin infusion, serial BMPs and IV fluids (4) Acute renal failure: Code(s): N17.9 - Acute kidney failure, unspecified Status: Acute Assessment and Plan: Likely secondary to hypovolemia and sepsis Continue IV fluid. Monitor renal function. Creatinine is improving (5) Hyperkalemia: Code(s): E87.5 - Hyperkalemia Status: Acute Assessment and Plan: Likely secondary to acute renal failure and metabolic acidosis. Improved now and actually hypokalemic. Will give 20 mEq IV patient is still on IV insulin (6) Hematemesis: Qualifiers: Nausea presence: unspecified Qualified Code(s): K92.0 - Hematemesis Code(s): K92.0 - Hematemesis Status: Acute Assessment and Plan: May be secondary to a ruptured blood vessel from retching and vomiting. Or gastritis. Monitor serial hemoglobin IV PPI If persists will consult Gastroenterology (7) Hypothyroid: Qualifiers: Hypothyroidism type: acquired Qualified Code(s): E03.9 - Hypothyroidism, unspecified Code(s): E03.9 - Hypothyroidism, unspecified Status: Chronic Assessment and Plan: we will administer IV levothyroxine. Transition back to oral levothyroxine when the patient is eating again. Additional Plan DVT prophylaxis -SCDs Stress ulcer prophylaxis -PPI Nutrition -NPO Code Status - Full Code Total Critical Care Time - 35 minutes Due to a high probability of clinically significant, life threatening deterioration, the patient required my highest level of preparedness to intervene emergently and I personally spent this critical care time directly and personally managing the patient. This critical care time included obtaining a history; examining the patient; pulse oximetry; ordering and review of studies; arranging urgent treatment with development of a management plan; evaluation of patient's response to treatment; frequent reassessment; and discussions with other providers. It was exclusive of separately billable procedures and treating other patients and teaching time. Please see Assessment and Plan section and the rest of the note for further information on patient assessment and treatment Inten
[2020-05-10 11:07] LABS: Glucose Point of Care 337 (65-105)
[2020-05-10 13:01] LABS: Glucose Point of Care 234 (65-105)
[2020-05-10] MEDS: KCL 20 MEQ/D5/0.45% SOD CHL 1,000 ML 150 ML IV CONT (13:37)
[2020-05-10 14:01] LABS: Glucose Point of Care 148 (65-105)
[2020-05-10 14:07] LABS: Anion Gap 7 mmol/L (8-16); Blood Urea Nitrogen 47 mg/dL (7-17); Calcium 7.6 mg/dL (8.4-10.2); Carbon Dioxide 27 mmol/L (22-30); Chloride 105 mmol/L (98-107); Estimated CRCL calculation 39 ml/min; Estimated Glomerular Filt Rate 56; Glucose 125 mg/dL (65-105); Potassium 3.3 mmol/L (3.4-5.0); Sodium 139 mmol/L (137-145)
[2020-05-10] MEDS: INSULIN GLARGINE (*BKC) 100 UNITS/ML 30 UNITS SUB-Q (15:46)
[2020-05-10] MEDS: KCL 20 MEQ/0.45% NS 1,000 ML 100 ML IV CONT (15:47)
--- NOTE | 2020-05-10 18:34 | PC.NURSE ---
Patient's mentation has improved greatly since beginning of shift. A&O X3 despite memory loss of what brought her to the hospital. She has periods of frustration for being in the hospital during the holidays and is uncomfortable in bed with frequent complaints but is easily redirected and pleased with simple repositioning and sips of water. See EMAR for medication administrations and drips. patient refused evening labs as she is uncomfortable and would like to just eat something please!
[2020-05-10 18:40] LABS: Glucose Point of Care 99 (65-105)
[2020-05-10] MEDS: PANTOPRAZOLE SODIUM IV 40 MG VIAL IV PUSH (21:22)
[2020-05-10 21:42] LABS: Glucose Point of Care 358 (65-105)
[2020-05-10] MEDS: INSULIN ASPART (*BKC) 100 UNITS/ML 8 UNITS SUB-Q (22:17)
[2020-05-11] VITALS (11 sets, daily range): BP systolic 126–170; BP diastolic 58–99; PULSE 69–100; RESP 18–24; TEMP 36.4–37.1; O2SAT 97–99
[2020-05-11 00:52] LABS: Anion Gap 5 mmol/L (8-16); Blood Urea Nitrogen 37 mg/dL (7-17); Calcium 7.6 mg/dL (8.4-10.2); Carbon Dioxide 26 mmol/L (22-30); Chloride 102 mmol/L (98-107); Estimated CRCL calculation 39 ml/min; Estimated Glomerular Filt Rate 56; Glucose 327 mg/dL (65-105); Potassium 3.8 mmol/L (3.4-5.0); Sodium 133 mmol/L (137-145)
[2020-05-11] MEDS: LEVOTHYROXINE SODIUM INJ 100 MCG/5 ML VIAL 75 MCG IV PUSH (05:55)
[2020-05-11 06:28] LABS: Hemoglobin 11.9 g/dL (12.0-15.0); Mean Corpuscular HGB Conc 32.2 g/dl (32-36); Mean Corpuscular Hemoglobin 23.5 pg (26-34); Mean Corpuscular Volume 73.1 fl (80-100); Mean Platelet Volume 9.9 fl (7.4-10.4); Platelet Count Result 183 k/mm3 (150-375); Red Blood Count 5.06 M/mm3 (4.2-5.4); Red Cell Distribution Width 16.7 % (11.5-14.5); White Blood Count 14.8 K/mm3 (4.5-10.0)
[2020-05-11 06:43] LABS: Alanine Aminotransferase 38 U/L (4-35); Alkaline Phosphatase 80 U/L (38-126); Anion Gap 5 mmol/L (8-16); Aspartate Amino Transferase 49 U/L (14-36); Bilirubin,Total 1.2 mg/dL (0.2-1.3); Blood Urea Nitrogen 28 mg/dL (7-17); Calcium 7.9 mg/dL (8.4-10.2); Carbon Dioxide 27 mmol/L (22-30); Chloride 99 mmol/L (98-107); Estimated CRCL calculation 57 ml/min; Estimated Glomerular Filt Rate > 60; Glucose 352 mg/dL (65-105); Magnesium 1.9 mg/dL (1.6-2.3); Sodium 131 mmol/L (137-145)
[2020-05-11 08:15] LABS: Glucose Point of Care 390 (65-105)
[2020-05-11] MEDS: PANTOPRAZOLE SODIUM IV 40 MG VIAL IV PUSH ×2 (08:23→20:10)
[2020-05-11] MEDS: INSULIN ASPART (*BKC) 100 UNITS/ML SUB-Q ×3 (08:30→17:54)
[2020-05-11] MEDS: INSULIN GLARGINE (*BKC) 100 UNITS/ML 30 UNITS SUB-Q ×2 (09:13→20:06)
--- NOTE | 2020-05-11 09:55 | PM.IMPN ---
Progress Note: A&P Assessment and Plan (1) Altered mental status: Qualifiers: Altered mental status type: unspecified Qualified Code(s): R41.82 - Altered mental status, unspecified Code(s): R41.82 - Altered mental status, unspecified Status: Acute Assessment and Plan: Likely secondary to metabolic acidosis and severe dehydration from DKA. CT brain was obtained in the ER tonight and was unremarkable for acute pathology. The patient is currently medicated secondary to a uncooperative and aggressive behavior. The patient will be admitted to ICU. Television Cabinet Finisher has been consulted. Neuro checks. Telemetry. Aspiration precautions. Fall precautions. (2) DKA (diabetic ketoacidoses): Qualifiers: Diabetes mellitus complication detail: without coma Diabetes mellitus type: type 1 Qualified Code(s): E10.10 - Type 1 diabetes mellitus with ketoacidosis without coma Code(s): E11.10 - Type 2 diabetes mellitus with ketoacidosis without coma Status: Acute Assessment and Plan: Patient is in acute DKA with hyperglycemia, elevated anion gap metabolic acidosis, and positive serum ketones. strict NPO.We will continue IV insulin therapy and transition to subcu insulin once the patient's anion gap, PH, serum bicarbonate normalizes. Continue IV hydration. Monitor acid-base status closely. (3) Septic shock: Code(s): A41.9 - Sepsis, unspecified organism; R65.21 - Severe sepsis with septic shock Status: Acute Assessment and Plan: With severely elevated white blood cell count elevated lactic acid, tachypnea and tachycardia. The patient arrived to the ICU severely hypotensive from the ER. I administered another 1 Liter IV bolus and the patient continued to be severely hypotensive. At this point in time there is no clear source of sepsis although the patient may have a UTI as urinalysis has not returned yet. This also may be secondary to severe dehydration. Patient has been started on wide-spectrum antibiotics. Continue IV antibiotics and deescalate when appropriate. Blood sputum urine cultures. Monitor acid-base status closely. Monitor vital signs closely. Continue IV fluids. Monitor urine output. We will place central line and start Levophed for vasopressor support. (4) Hematemesis: Qualifiers: Nausea presence: unspecified Qualified Code(s): K92.0 - Hematemesis Code(s): K92.0 - Hematemesis Status: Acute Assessment and Plan: May be secondary to a ruptured blood vessel from retching and vomiting. Rule out occult GI bleed. Will monitor her blood counts closely and transfuse p.r.n.. Consider Gastroenterology consultation in a.m. if necessary. (5) Dehydration: Code(s): E86.0 - Dehydration Status: Acute Assessment and Plan: Secondary to acute DKA, nausea, and vomiting. Continue IV rehydration. Continue to monitor vital signs and urine output closely. (6) Elevated lactic acid level: Code(s): R79.89 - Other specified abnormal findings of blood chemistry Status: Acute Assessment and Plan: secondary to metabolic acidosis from DKA And severe dehydration. check reflex lactic acid. Monitor acid-base status. Continue IV hydration and treatment of acute DKA. (7) Thrombocytosis: Code(s): D47.3 - Essential (hemorrhagic) thrombocythemia Status: Acute Assessment and Plan: Likely secondary to acute dehydration. Monitor serum platelets (8) Hyponatremia: Code(s): E87.1 - Hypo-osmolality and hyponatremia Status: Acute Assessment and Plan: Appears to be pseudohyponatremia from hyperglycemia. Monitor serum sodium. (9) Hyperkalemia: Code(s): E87.5 - Hyperkalemia Status: Acute Assessment and Plan: Likely secondary to acute renal failure and metabolic acidosis. Monitor her serum potassium. I expect the patient's serum potassium to normalize
[2020-05-11 12:01] LABS: Hematocrit 39.2 % (37.0-47.0); Hemoglobin 12.7 g/dL (12.0-15.0)
[2020-05-11 12:10] LABS: Glucose Point of Care 383 (65-105)
[2020-05-11] MEDS: nadoloL 20 MG TABLET 60 MG PO (12:40)
--- NOTE | 2020-05-11 13:50 | WPDINTPN ---
Progress Note: A&P Assessment and Plan (1) Septic shock: Code(s): A41.9 - Sepsis, unspecified organism; R65.21 - Severe sepsis with septic shock Status: Acute Assessment and Plan: Source is not clear this time Patient has received IV fluid bolus and is now IV maintenance fluid Levophed on for a brief amount of time. Currently off Blood cultures are negative 2 of 2 bottles so far. Urine culture is pending Chest x-ray and UA are not suggestive of infection but may be early Continue vancomycin and Zosyn for anaerobic coverage (2) Encephalopathy: Code(s): G93.40 - Encephalopathy, unspecified Status: Acute Assessment and Plan: Resolved Likely multifactorial toxic metabolic encephalopathy Patient presented with confusion and was found to be in DKA and septic shock but later received several doses of sedatives in the ED Head CT was negative for acute changes and showed old infarct (3) DKA (diabetic ketoacidoses): Qualifiers: Diabetes mellitus complication detail: without coma Diabetes mellitus type: type 1 Qualified Code(s): E10.10 - Type 1 diabetes mellitus with ketoacidosis without coma Code(s): E11.10 - Type 2 diabetes mellitus with ketoacidosis without coma Status: Acute Assessment and Plan: Patient is in acute DKA with mixed acidosis Patient received IV fluids, insulin infusion protocol -was transition to long-acting insulin and sliding scale insulin. -continue Lantus, will increase dose to Q12H (4) Acute renal failure: Code(s): N17.9 - Acute kidney failure, unspecified Status: Acute Assessment and Plan: Likely secondary to hypovolemia and sepsis Continue IV fluid. Monitor renal function. -creatinine 0.8 this morning (1.6 on admission) (5) Hyperkalemia: Code(s): E87.5 - Hyperkalemia Status: Acute Assessment and Plan: RESOLVED Likely secondary to acute renal failure and metabolic acidosis. Improved now and actually hypokalemic. Will give 20 mEq IV patient is still on IV insulin (6) Hematemesis: Qualifiers: Nausea presence: unspecified Qualified Code(s): K92.0 - Hematemesis Code(s): K92.0 - Hematemesis Status: Acute Assessment and Plan: RESOLVED May be secondary to a ruptured blood vessel from retching and vomiting. Or gastritis. Patient did have dark stools -repeat hemoglobin is stable and improved IV PPI GI consulted (7) Hypothyroid: Qualifiers: Hypothyroidism type: acquired Qualified Code(s): E03.9 - Hypothyroidism, unspecified Code(s): E03.9 - Hypothyroidism, unspecified Status: Chronic Assessment and Plan: Transition to oral levothyroxine Additional Plan DVT prophylaxis -SCDs Stress ulcer prophylaxis -PPI Nutrition -start diabetic diet Code Status - Full Code Total Critical Care Time - 32 minutes Due to a high probability of clinically significant, life threatening deterioration, the patient required my highest level of preparedness to intervene emergently and I personally spent this critical care time directly and personally managing the patient. This critical care time included obtaining a history; examining the patient; pulse oximetry; ordering and review of studies; arranging urgent treatment with development of a management plan; evaluation of patient's response to treatment; frequent reassessment; and discussions with other providers. It was exclusive of separately billable procedures and treating other patients and teaching time. Please see Assessment and Plan section and the rest of the note for further information on patient assessment and treatment Subjective Date/time seen: 05/11/20 13:50 Interval history: Reason for consult: DKA, encephalopathy, septic shock, hematemesis 05/11: Patient seen and examined, patient has been transition to long-acting insulin sliding scale insulin. Blood sugars remain elevated but c
[2020-05-11] MEDS: GABAPENTIN 300 MG CAPSULE 600 MG PO ×2 (16:07→20:06)
[2020-05-11 17:33] LABS: Hematocrit 37.6 % (37.0-47.0); Hemoglobin 12.2 g/dL (12.0-15.0)
--- NOTE | 2020-05-11 17:41 | PC.NURSE ---
This patient, Dariana Duncan, was transferred to [[facility] ] on 05/11/20 at 1741. Personal belongings sent with patient. Report given to [Luciana ]. Appropriate documentation sent with patient.
[2020-05-11 17:55] LABS: Glucose Point of Care 249 (65-105)
[2020-05-11 20:35] LABS: Glucose Point of Care 253 (65-105)
--- NOTE | 2020-05-11 22:15 | PC.NURSE ---
05/11/20 @ 2140: SPOKE W/ SON, NOHEMI TO UPDATE ON PT STATUS.
[2020-05-12 01:34] LABS: Hematocrit 37.6 % (37.0-47.0); Hemoglobin 11.9 g/dL (12.0-15.0)
[2020-05-12 05:52] VITALS: BP 147/63; PULSE 72; RESP 18; TEMP 36.9; O2SAT 98
[2020-05-12] MEDS: LEVOTHYROXINE SODIUM 150 MCG TABLET PO (06:30)
[2020-05-12] MEDS: GABAPENTIN 300 MG CAPSULE 600 MG PO (06:30)
[2020-05-12 07:18] LABS: Alanine Aminotransferase 38 U/L (4-35); Albumin Level 3.5 g/dL (3.5-5.1); Alkaline Phosphatase 75 U/L (38-126); Anion Gap 4 mmol/L (8-16); Aspartate Amino Transferase 40 U/L (14-36); Bilirubin,Total 1.8 mg/dL (0.2-1.3); Blood Urea Nitrogen 14 mg/dL (7-17); Calcium 8.8 mg/dL (8.4-10.2); Carbon Dioxide 36 mmol/L (22-30); Chloride 98 mmol/L (98-107); Estimated CRCL calculation 65 ml/min; Estimated Glomerular Filt Rate > 60; Glucose 128 mg/dL (65-105); Magnesium 2.1 mg/dL (1.6-2.3); Potassium 3.8 mmol/L (3.4-5.0); Sodium 138 mmol/L (137-145)
[2020-05-12 07:19] LABS: Hematocrit 41.5 % (37.0-47.0); Hemoglobin 13.1 g/dL (12.0-15.0); Mean Corpuscular HGB Conc 31.6 g/dl (32-36); Mean Corpuscular Hemoglobin 23.1 pg (26-34); Mean Corpuscular Volume 73.3 fl (80-100); Mean Platelet Volume 10.5 fl (7.4-10.4); Platelet Count Result 203 k/mm3 (150-375); Red Blood Count 5.66 M/mm3 (4.2-5.4); Red Cell Distribution Width 17.4 % (11.5-14.5); White Blood Count 10.3 K/mm3 (4.5-10.0)
--- NOTE | 2020-05-12 07:51 | PC.NURSE ---
SPOKE W/ SON, NOHEMI TO UPDATE RE: STATUS AND THIS AM'S HGB/HCT.
[2020-05-12 08:03] LABS: Glucose Point of Care 136 (65-105)
[2020-05-12] MEDS: INSULIN GLARGINE (*BKC) 100 UNITS/ML 30 UNITS SUB-Q (08:04)
[2020-05-12 08:05] VITALS: PULSE 72
[2020-05-12] MEDS: nadoloL 20 MG TABLET 60 MG PO (08:05)
[2020-05-12] MEDS: ATORVASTATIN 20 MG TABLET PO (08:06)
[2020-05-12] MEDS: PANTOPRAZOLE SODIUM IV 40 MG VIAL IV PUSH (08:10)
--- NOTE | 2020-05-12 09:13 | PM.DS ---
DS: Admitting Diagnosis Admitting Diagnosis Admitting Diagnosis: 1. DKA 2. Hypertension 3. Hyperlipidemia and electrolyte imbalance 4. Acute renal insufficiency DS: Discharge Diagnosis Discharge Diagnosis (1) Altered mental status: Qualifiers: Altered mental status type: unspecified Qualified Code(s): R41.82 - Altered mental status, unspecified Code(s): R41.82 - Altered mental status, unspecified Status: Acute Assessment and Plan: Likely secondary to metabolic acidosis and severe dehydration from DKA. CT brain was obtained in the ER tonight and was unremarkable for acute pathology. The patient is currently medicated secondary to a uncooperative and aggressive behavior. The patient will be admitted to ICU. Sweeper Operator Highways has been consulted. Neuro checks. Telemetry. Aspiration precautions. Fall precautions. (2) DKA (diabetic ketoacidoses): Qualifiers: Diabetes mellitus complication detail: without coma Diabetes mellitus type: type 1 Qualified Code(s): E10.10 - Type 1 diabetes mellitus with ketoacidosis without coma Code(s): E11.10 - Type 2 diabetes mellitus with ketoacidosis without coma Status: Acute Assessment and Plan: Patient is in acute DKA with hyperglycemia, elevated anion gap metabolic acidosis, and positive serum ketones. strict NPO.We will continue IV insulin therapy and transition to subcu insulin once the patient's anion gap, PH, serum bicarbonate normalizes. Continue IV hydration. Monitor acid-base status closely. (3) Septic shock: Code(s): A41.9 - Sepsis, unspecified organism; R65.21 - Severe sepsis with septic shock Status: Acute Assessment and Plan: With severely elevated white blood cell count elevated lactic acid, tachypnea and tachycardia. The patient arrived to the ICU severely hypotensive from the ER. I administered another 1 Liter IV bolus and the patient continued to be severely hypotensive. At this point in time there is no clear source of sepsis although the patient may have a UTI as urinalysis has not returned yet. This also may be secondary to severe dehydration. Patient has been started on wide-spectrum antibiotics. Continue IV antibiotics and deescalate when appropriate. Blood sputum urine cultures. Monitor acid-base status closely. Monitor vital signs closely. Continue IV fluids. Monitor urine output. We will place central line and start Levophed for vasopressor support. (4) Hematemesis: Qualifiers: Nausea presence: unspecified Qualified Code(s): K92.0 - Hematemesis Code(s): K92.0 - Hematemesis Status: Acute Assessment and Plan: May be secondary to a ruptured blood vessel from retching and vomiting. Rule out occult GI bleed. Will monitor her blood counts closely and transfuse p.r.n.. Consider Gastroenterology consultation in a.m. if necessary. (5) Dehydration: Code(s): E86.0 - Dehydration Status: Acute Assessment and Plan: Secondary to acute DKA, nausea, and vomiting. Continue IV rehydration. Continue to monitor vital signs and urine output closely. (6) Elevated lactic acid level: Code(s): R79.89 - Other specified abnormal findings of blood chemistry Status: Acute Assessment and Plan: secondary to metabolic acidosis from DKA And severe dehydration. check reflex lactic acid. Monitor acid-base status. Continue IV hydration and treatment of acute DKA. (7) Thrombocytosis: Code(s): D47.3 - Essential (hemorrhagic) thrombocythemia Status: Acute Assessment and Plan: Likely secondary to acute dehydration. Monitor serum platelets (8) Hyponatremia: Code(s): E87.1 - Hypo-osmolality and hyponatremia Status: Acute Assessment and Plan: Appears to be pseudohyponatremia from hyperglycemia. Monitor serum sodium. (9) Hyperkalemia: Code(s): E87.5 - Hyperkalemia Status: Acute
--- NOTE | 2020-05-12 10:58 | CONS_ITS ---
DATE OF CONSULTATION: 05/12/2020 HISTORY OF PRESENT ILLNESS: A 64-year-old female with history of type 1 diabetes mellitus, hypothyroidism, stroke, overactive bladder, hypertension, hyperlipidemia, insomnia, anemia, tubal ligation, who presented with 2 days of nausea and vomiting prior to admission. She had altered mental status and in the ER was noted to be hypoxic and was diagnosed with DKA and sepsis. I am now asked to provide GI evaluation at the request of the hospitalist service for hematemesis, melena, and now rectal bleeding. Her primary care provider is Dr. Ciro Sim. It is unclear if she has a primary internal revenue agent. The patient initially had hematemesis and dark stools associated with her nausea and vomiting, and overnight she had some rectal bleeding with bright red blood. She has maintained her H and H. She currently feels much better and denies abdominal pain, nausea, vomiting, heartburn, trouble swallowing, loss of appetite or weight, diarrhea, constipation, previous hematochezia, melena, fever, jaundice, scleral icterus, dark urine, light stools, itching, hot or cold intolerance, chest pain, shortness of breath at rest, hematuria, dysuria, new cough or visual changes, easy bruising, tingling of the skin, bone pain, or tremors. No endocarditis risk factors. ALLERGIES: NO KNOWN DRUG ALLERGIES. MEDICATIONS: Include: 1. Insulin. 2. Synthroid. 3. Gabapentin. 4. Baby aspirin. 5. Atorvastatin. 6. Vitamin D3. 7. Oxybutynin. 8. Nadolol. 9. Trazodone. SOCIAL HISTORY: Nonsmoker. Rare alcohol. Occasional use of marijuana. FAMILY HISTORY: Adopted and unknown. She had what sounds like a Cologuard 1 year ago, reportedly negative. She feels her last colonoscopy was approximately 5 years ago and does not know the results. PHYSICAL EXAMINATION: GENERAL: Well-developed, well-nourished female, lying in bed, in no apparent distress. She has just finished breakfast. She has no lower extremity edema, jaundice, spider angioma, palmar erythema. HEENT: Skull is normocephalic, atraumatic. Pupils nonicteric. Oropharynx clear. NECK: Supple without thyromegaly. LUNGS: Clear to auscultation. HEART: Rate and rhythm regular. S1, S2 normal. ABDOMEN: Normal bowel sounds. Soft, nontender, nonrigid, nondistended without hepatosplenomegaly or masses. RECTAL: Deferred. NEURO: Conscious and alert x3. LABORATORY DATA: Today, hemoglobin 13, hematocrit 42, white count of 10, MCV is 73, T bilirubin 1.8, alkaline phosphatase 75, AST 40, ALT is 38. On May 11, hematocrit 37, MCV 73, creatinine 1, T bilirubin 1.2, alkaline phosphatase 80, AST 49, ALT is 38. On May 10, hematocrit 41, white count 35, MCV 80. INR is 1.4. Lactic acid was 3.6. Beta hydroxybutyrate 617. Alcohol level is negative. ASSESSMENT AND PLAN: 1. Hematemesis and melena associated with nausea and vomiting. The nausea and vomiting were likely related to diabetic ketoacidosis and her bleeding was likely related to Jessenia-Cox tear that is healing. She is tolerating p.o. and has no evidence of active upper gastrointestinal bleed. I would continue on acid suppression and follow up with upper endoscopy as an outpatient. 2. Hematochezia. The patient with stable H and H, likely related to hemorrhoids, but could not rule out neoplasm or other lower gastrointestinal process. I do not believe this is related to her upper gastrointestinal process. She should have colonoscopy as an outpatient. 3. Microcytosis without anemia. The patient certainly could have hemoglobinopathy, but will start with iron studies and a standard anemia evaluation. This is ordered and will be done on blood in the lab. She will follow up with Dr. Ciro Sim for this. 4. A
[2020-05-12 11:24] LABS: Folic Acid > 20.0 ng/mL (2.76->20)
[2020-05-14 10:41] LABS: Iron 179 ug/dL (37-170)
[2020-05-14 10:51] LABS: Percent Iron Saturation 75 % (20-50)
--- NOTE | 2020-10-03 09:10 | PM.DS ---
DS: Admitting Diagnosis Admitting Diagnosis Admitting Diagnosis: DISCHARGE DATE 10/02/2020 Altered mental status DS: Discharge Diagnosis Discharge Diagnosis (1) Altered mental status: Qualifiers: Altered mental status type: unspecified Qualified Code(s): R41.82 - Altered mental status, unspecified Code(s): R41.82 - Altered mental status, unspecified Status: Resolved Assessment and Plan: Likely secondary to metabolic acidosis and severe dehydration from DKA. CT brain was obtained in the ER tonight and was unremarkable for acute pathology. Pt is better now after DKA and septic shock have been treated. Acute encephalopathy: Probably related to UTI and seizure continue Keppra. SP EEG and MRI brain and CT Head Status post IV Ativan Keppra neurology recommendation appreciated continue Keppra for now (2) DKA (diabetic ketoacidoses): Qualifiers: Diabetes mellitus complication detail: without coma Diabetes mellitus type: type 1 Qualified Code(s): E10.10 - Type 1 diabetes mellitus with ketoacidosis without coma Code(s): E11.10 - Type 2 diabetes mellitus with ketoacidosis without coma Status: Resolved Assessment and Plan: Patient is in acute DKA with hyperglycemia (3) Septic shock: Code(s): A41.9 - Sepsis, unspecified organism; R65.21 - Severe sepsis with septic shock Status: Resolved Assessment and Plan: With severely elevated white blood cell count elevated lactic acid, tachypnea and tachycardia. Pt treated for UTI. (4) Hematemesis: Qualifiers: Nausea presence: unspecified Qualified Code(s): K92.0 - Hematemesis Code(s): K92.0 - Hematemesis Status: Resolved Assessment and Plan: May be secondary to a ruptured blood vessel from retching and vomiting. (5) Dehydration: Code(s): E86.0 - Dehydration Status: Resolved Assessment and Plan: Secondary to acute DKA, nausea, and vomiting. After hydration (6) Elevated lactic acid level: Code(s): R79.89 - Other specified abnormal findings of blood chemistry Status: Resolved Assessment and Plan: Secondary to metabolic acidosis from DKA And severe dehydration. And UTI (7) Thrombocytosis: Code(s): D47.3 - Essential (hemorrhagic) thrombocythemia Status: Acute Assessment and Plan: Likely secondary to acute dehydration. Monitor serum platelets (8) Hyponatremia: Code(s): E87.1 - Hypo-osmolality and hyponatremia Status: Resolved Assessment and Plan: Appears to be pseudohyponatremia from hyperglycemia. (9) Hyperkalemia: Code(s): E87.5 - Hyperkalemia Status: Resolved Assessment and Plan: Likely secondary to acute renal failure and metabolic acidosis. (10) Acute renal failure: Code(s): N17.9 - Acute kidney failure, unspecified Status: Resolved Assessment and Plan: Likely secondary to dehydration from nausea and vomiting. after fluids (11) Hyperbilirubinemia: Code(s): E80.6 - Other disorders of bilirubin metabolism Status: Acute Assessment and Plan: Check total and fractionated bilirubin. Consider right upper quadrant ultrasound and further studies (12) Hypothyroid: Qualifiers: Hypothyroidism type: acquired Qualified Code(s): E03.9 - Hypothyroidism, unspecified Code(s): E03.9 - Hypothyroidism, unspecified Status: Chronic Assessment and Plan: Pt had IV levothyroxine. Transition back to oral levothyroxine when the patient is eating again. (13) Marijuana use: Code(s): F12.90 - Cannabis use, unspecified, uncomplicated Status: Chronic Assessment and Plan: History of use DS: Summary Hospital Course Reason for hospitalization: [facility] Hospital Course: Patient 62-year-old female presents the emergency department with EMS unresponsiveness and posturing. Patient was last seen
== END 2020-05-12 10:59 | disposition home or self-care (01) | DRG 871 ==
LOC: ANHED 05-10 01:00 → ANHICU 05-10 14:27 → ANH3MEDSUR 05-12 09:16 → ANHICU 05-15 14:34
PROVIDERS: Internal Medicine; Internal Medicine Gastroenterology; Physician Assistant; Admitting Provider Family Medicine; Emergency Provider Emergency Medicine; PCP Family Medicine; Visit Provider Internal Medicine
DX: A41.9 Sepsis, unspecified organism (principal); E10.10 Type 1 diabetes mellitus with ketoacidosis without coma; K22.6 Gastro-esophageal laceration-hemorrhage syndrome; R65.21 Severe sepsis with septic shock; E87.1 Hypo-osmolality and hyponatremia; N17.9 Acute kidney failure, unspecified; G93.40 Encephalopathy, unspecified; I10 Essential (primary) hypertension; E78.5 Hyperlipidemia, unspecified; E86.0 Dehydration; E87.5 Hyperkalemia; E03.9 Hypothyroidism, unspecified; Z96.41 Presence of insulin pump (external) (internal); N32.81 Overactive bladder; Z86.73 Personal history of transient ischemic attack (TIA), and cerebral infarction without residual deficits
CPT/HCPCS: 36415; 36600; 70450; 71045; 80048; 80053; 80307; 81001; 82010; 82140; 82375; 82607; 82728; 82746; 82805; 82948; 83050; 83540; 83550; 83605; 83735; 84100; 84443; 84484; 85014; 85018; 85025; 85027; 85610; 85730; 86850; 86900; 86901; 87040; 87086; 87088; 93005; 96361; 96374; 96375; 96376; 99285; A9270; C1751; C9113; J0692; J1200; J1630; J1815; J2060; J2405; J2543; J3370; J3480; J7030

== ENCOUNTER 2020-08-01 10:29 | Outpatient (CLI) | payer BC, SELFPAY | END 2020-08-01 10:30 | disposition home or self-care (01) | LOC: ANHCOVIDVC 10:29 | PROVIDERS: PCP Family Medicine | DX: Z23 Encounter for immunization (principal) | CPT/HCPCS: 0001A; 91300 ==

== ENCOUNTER 2020-08-22 10:53 | Outpatient (CLI) | payer BC, SELFPAY | END 2020-08-22 10:54 | disposition home or self-care (01) | LOC: ANHCOVIDVC 10:53 | PROVIDERS: PCP Family Medicine | DX: Z23 Encounter for immunization (principal) | CPT/HCPCS: 0002A; 91300 ==

== ENCOUNTER 2020-09-20 22:11 | Inpatient (IN) | payer BC, SELFPAY ==
--- NOTE | ~2020-09-20 | XR_ITS ---
EXAMINATION: XR chest 1V portable DATE: 09/20/2020 23:38 INDICATION: Cerebrovascular accident. TECHNIQUE: A single frontal view of the chest was obtained. COMPARISON: Chest single view 05/10/2020 FINDINGS: The chest demonstrates clear lungs without pneumonia, pleural effusion, or pneumothorax. Th e heart size is normal. IMPRESSION: 1. No acute cardiopulmonary disease. Reviewed, dictated and finalized at location A.
--- NOTE | ~2020-09-20 | MR_ITS ---
EXAMINATION: MR brain/brain stem wo con EXAM DATE: 09/21/2020 12:32 INDICATION: Seizure TECHNIQUE: Magnetic resonance imaging (MRI) of the brain/brain stem obtained without contrast. Sagitt al T1, axial diffusion, gradient echo (T2*), T1, T2, FLAIR sequences obtained. Correlation is made t o head CT from 09/20/2020. FINDINGS: There are no areas of restricted diffusion to suggest acute infarction. There is no acute hemorrhage seen on the T2*, a hemosiderin sensitive sequence. No intraparenchymal brain mass lesion. There is moderate-sized old infarction in the left frontal lobe. There is periventricular and subc ortical T2/FLAIR signal hyperintensity, nonspecific but probably related to small vessel ischemic dis ease (microangiopathy). There is prominence of the sulci and ventricles related to cerebral atrophy . There are no extra-axial collections. Flow voids are seen in the cerebral arteries on the T2-bhavya ghted sequences consistent with their expected patency. The orbits are unremarkable. Soft tissue is unremarkable. Left mastoid effusion. IMPRESSION: 1. No acute intracranial findings. 2. Chronic age related findings. 3. 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 Reviewed, dictated and finalized at location B.
--- NOTE | ~2020-09-20 | CT_ITS ---
EXAMINATION: CTA brain carotid EXAM DATE: 09/24/2020 17:31 INDICATION: Seizure, confusion. TECHNIQUE: Noncontrast head CT. Spiral CTA of the carotid arteries was performed with intravenous i njection 100 cc of Omnipaque 350. Axial, coronal, sagittal reformatted images reviewed. Additional r eformatted images created on dedicated 3-D workstation. NASCET comparable standard used to assess th e degree of arterial stenosis. Spiral CT angiogram cerebral arteries performed with the same intrave nous injection of contrast. Source images of the brain CTA transferred to dedicated workstation for 3 -D rotational image creation. Coronal, sagittal maximum intensity pixel images also reviewed. The d ose-length product (DLP) for this examination was 1692.47 mGy-cm. The exposure was tailored accordi ng to patient size, and iterative reconstruction (ASIR) was used as additional dose reduction techniq ue. Comparison is made to prior examination from 09/20/2020. FINDINGS: There is mild left carotid bulb arteriosclerosis with 0% stenosis bilaterally. There is no carotid or vertebral basilar arterial dissection or fibromuscular dysplasia. There are no cerebral a rtery aneurysms. There is symmetric cerebral artery arborization. The sagittal, transverse and sigmoi d sinuses enhance normally, no venous sinus thrombosis. Internal cerebral veins also enhance normally . Again there is old moderate-sized infarct and in the left frontal lobe. There is no acute intraparenc hymal hemorrhage. Mild atrophy and microangiopathy. No evidence of intraparenchymal brain mass lesion . No evidence of acute infarction. There is no mass effect or midline shift. There is no obstructiv e hydrocephalus suspected. There are no extra-axial collections. There are no calvarial acute fract ures. There is no significant interval change. IMPRESSION: 1. No acute carotid or intracranial findings. 2. Bilateral carotid 0% stenosis. 3. Moderate sized old left frontal lobe infarction. Reviewed, dictated and finalized at location A.
--- NOTE | ~2020-09-20 | CT_ITS ---
EXAMINATION: CT brain wo con DATE: 09/20/2020 22:18 INDICATION: Cerebrovascular accident. TECHNIQUE: Computed tomography (CT) of the head was performed without intravenous contrast. The mA wa s adjusted according to patient size. Iterative reconstruction technique was employed. The dose-lengt h product was 681.00 mGy-cm. COMPARISON: None FINDINGS: There is no intracranial hemorrhage, acute infarction, or abnormal intracranial mass lesion . There is an old infarct in left frontoparietal region. There is ex vacuo dilatation of left lateral ventricle. The paranasal sinuses are clear. The mastoid air cells are normal. The orbits are normal. IMPRESSION: 1. Old infarct in left frontoparietal region. Reviewed, dictated and finalized at location A.
--- NOTE | 2020-09-20 22:02 | ECG_ITS ---
Measurements Intervals [place] Rate: 86 P: 62 MT: 129 QRS: 21 QRSD: 94 T: 34 QT: 384 QTc: 459 Interpretive Statements SINUS RHYTHM POSSIBLE LEFT ATRIAL ENLARGEMENT DELAYED PRECORDIAL R/S TRANSITION BASELINE ARTIFACT- II, III, AVL, AVF, V2, V4-V6 BORDERLINE ECG Electronically Signed On 09-21-2020 9:11:22 CDT by Everton Trent D.O.
[2020-09-20 22:22] VITALS: BP 176/146; PULSE 87; RESP 21; TEMP 35.9; O2SAT 96
[2020-09-20] MEDS: LORazepam INJ (*CRX) 2 MG/ML VIAL IV PUSH (22:25)
[2020-09-20] MEDS: LORazepam INJ (*CRX) 2 MG/ML VIAL (22:33)
[2020-09-20] MEDS: levETIRAcetam 1000MG/NACL100ML 1,000 MG/100 ML BAG 400 MG IVPB (22:34)
[2020-09-20 22:35] VITALS: BP 152/81; PULSE 83; RESP 24; TEMP 37.2; O2SAT 95
[2020-09-20 22:36] VITALS: BP 152/81; PULSE 83; RESP 24; O2SAT 95
--- NOTE | 2020-09-20 22:36 | PC.NURSE ---
EDP verbal order for 2mg ativan and 1g keppra for seizure activity. Pt was able to move left arm back down to her side but other activity continued. Additional 2mg ativan ordered and given by SHUBHAM Schulte. VSS at this time. Will continue to monitor pt status.
[2020-09-20 22:39] LABS: Hematocrit 61.8 % (37.0-47.0); Hemoglobin 18.1 g/dL (12.0-15.0); Mean Corpuscular HGB Conc 29.3 g/dl (32-36); Mean Corpuscular Hemoglobin 21.4 pg (26-34); Mean Corpuscular Volume 73.1 fl (80-100); Platelet Count Result 659 k/mm3 (150-375); Red Blood Count 8.45 M/mm3 (4.2-5.4); Red Cell Distribution Width 20.4 % (11.5-14.5)
[2020-09-20 22:41] LABS: Alveolar/Arterial O2 Gradient 82.3 mmHg; Base Excess ABG -0.2 mEq/l (+/-2.0); Fractional Inspired Oxygen 36 %; HCO3 ABG 30.8 mEq/l (22.0-26.0); Oxygen Content ABG 23.4 %vol (16.0-22.0); Oxygen Saturation ABG 93.5 % (95.0-100.0); PO2 ABG 83.1 mmHg (80.0-100.0); PO2 FiO2 Ratio Arterial Blood 2.31 %; Total Hemoglobin 17.9 g/dL (12.0-18.0)
[2020-09-20 22:45] LABS: Alanine Aminotransferase 28 U/L (4-35); Albumin Level 5.2 g/dL (3.5-5.1); Alkaline Phosphatase 146 U/L (38-126); Aspartate Amino Transferase 105 U/L (14-36); Bilirubin,Total 1.3 mg/dL (0.2-1.3); INR 1.1; Magnesium 1.9 mg/dL (1.6-2.3); Prothrombin Time 14.7 Seconds (11.1-14.7)
[2020-09-20 22:45] LABS: pH ABG 7.211 (7.350-7.450)
[2020-09-20 22:46] LABS: Lactic Acid Reflex 3.4 mmol/L (0.7-2.1); Partial Thromboplastin Time 35.2 SECONDS (22.3-36.8)
[2020-09-20 22:46] LABS: Device NASAL CANNULA; Modified Allen's Test Pass; PCO2 ABG 78.7 mmHg (35.0-45.0); Site Drawn RIGHT RADIAL
[2020-09-20 22:48] LABS: Ethanol < 10 mg/dL (<10)
[2020-09-20 22:51] LABS: Band Neutrophils Percent 6 % (0-6); Eosinophils Absolute Manual 0.31 K/mm3 (0.02-0.5); Eosinophils Percent Manual 1 % (0-4); Lymphocytes Absolute Manual 1.86 K/mm3 (1.1-4.5); Monocytes Absolute Manual 1.24 K/mm3 (0.1-0.90); Monocytes Percent Manual 4 % (3-9); Neutrophils Absolute Manual 27.59 K/mm3 (1.7-7.2); Neutrophils Percent Manual 83 % (46-73); Total Cells Counted 100
[2020-09-20 22:52] LABS: Anisocytosis 3+ (NORMAL); Platelet Estimate Increased (Adequate)
[2020-09-20 23:01] VITALS: PULSE 81; RESP 27; O2SAT 94
[2020-09-20 23:07] LABS: Add Urine Microscopic? YES; Appearance Urine Cloudy (Clear); Bacteria Urine Trace /hpf; Bilirubin Urine Negative (Negative); Blood Urine Negative (Negative); Color Urine Yellow (Yellow); Glucose Urine UA 2+ mg/dL (Negative); Ketones Urine Negative (Negative); Leukocyte Esterase Ur Negative LEU/UL (Negative); Mucus Urine Rare /lpf; Nitrate Urine Negative (Negative); Protein Urine 3+ mg/dL (Negative); Specific Grav Ur 1.028 (1.001-1.035); Squamous Epithelial Cell Urine Rare /hpf (Few); Urobilinogen Urine Negative mg/dL (<2.0); WBC Urine 21-30 /hpf
[2020-09-20 23:09] VITALS: BP 124/68; PULSE 75; RESP 28; O2SAT 92
[2020-09-20] MEDS: SODIUM CHLORIDE 0.9% IV 1,000 ML 999 ML IV CONT ×2 (23:10→23:50)
--- NOTE | 2020-09-20 23:22 | ED.NEUROSD ---
HPI - Neuro Symptoms/Deficit General Chief Complaint: Suspected CVA Stated Complaint: CVA? Time Seen by Provider: 09/20/20 22:12 History of Present Illness HPI Narrative: Patient 62-year-old female presents the emergency department with chief complaint of altered mental status. Patient was found by EMS not responsive rigid and having shaking in her upper extremities and some posturing. The patient has recently been in another facility after she had a TIA and also has history of diabetes. The patient was last seen normal on Thursday. The patient is unable to provide history at this time Related Data Home Medications Medication Instructions Recorded Confirmed Unable to Obtain Home Medications 09/20/20 09/20/20 Allergies Allergy/AdvReac Type Severity Reaction Status Date / Time Unable to Assess Allergy Verified 09/20/20 23:09 Review of Systems Review of Systems: Narrative: A 10 system review of systems was completed on the patient and is negative except for what is stated in the HPI. Nursing and ancillary documentation was reviewed. ROS unobtainable: Yes unobtainable due to mental status PMFSH Comments Unable to obtain due to altered mental status Records obtained from [facility] the patient was found to have a prior history of DKA with an admission on 09/17/2020. Patient also has prior history of CVA Exam Narrative: Exam Narrative: GENERAL: ill-appearing, well-nourished, and in no acute distress. HEAD: Normocephalic, atraumatic. EYES: PERRLA and EOMI. ENT: Nares clear, no rhinorrhea or epistaxis. Mucous membranes moist. NECK: Supple. CHEST: Clear to auscultation. No respiratory distress. HEART: Regular rate and rhythm. No murmur heard. Normal peripheral pulses. ABDOMEN: Soft, nontender, nondistended, normal active bowel sounds. EXTREMITIES: Normal range of motion. No edema. SKIN: Warm, dry, no rash. NEURO: Patient appears to be having active seizing.. PSYCH: Normal mood and affect. Course Course Emergency Course: Patient was very rigid upon initial arrival the patient was given 2 mg of IV Ativan and also given a 1 g bolus of Keppra. The patient continued to have rigidity and was given another 2 mg dose of Ativan. Currently the patient is relaxed Patient was found to have a respiratory acidosis and the patient has been placed on BiPAP at this point. Laboratory studies are showing a elevated white blood cell count and the patient is being evaluated for possible infectious causes. Vital Signs Vital signs: Vital Signs Temperature 35.9 C L 09/20/20 22:22 Pulse Rate 87 09/20/20 22:22 Respiratory Rate 21 H 09/20/20 22:22 Blood Pressure 176/146 H 09/20/20 22:22 Pulse Oximetry 96 09/20/20 22:22 Temperature 37.2 C 09/20/20 22:35 Pulse Rate 81 09/21/20 03:03 Respiratory Rate 28 H 09/21/20 03:03 Blood Pressure 130/66 09/21/20 03:03 Pulse Oximetry 97 09/21/20 03:03 MDM - Neuro Symptoms/Deficit Lab Data Result diagrams: 09/20/20 22:30 09/20/20 22:30 Labs: Lab Results 09/20/20 09/20/20 09/20/20 Range/Units 22:30 22:30 22:30 WBC 31.0 H (4.5-10.0) K/mm3 RBC 8.45 H (4.2-5.4) M/mm3 Hgb 18.1 H (12.0-15.0) g/dL Hct 61.8 H (37.0-47.0) % MCV 73.1 L (80-100) fl MCH 21.4 L (26-34) pg MCHC 29.3 L (32-36) g/dl RDW 20.4 H (11.5-14.5) % Plt Count 659 H (150-375) k/mm3 MPV 10.0 (7.4-10.4) fl Immature Gran % (Auto) Not Reportable Neut % (Auto) Not Reportable Lymph % (Auto) Not Reportable Cole % (Auto) Not Reportable Eos % (Auto) Not Reportable Baso % (Auto) Not Reportable Lymph # (Auto) Not Reportable Cole # (Auto) Not Reportable Eos # (Auto) Not Reportable Baso # (Auto) Not Reportable Abs Immat Gran (auto) Not Reportable Absolute Neuts (auto) Not Reportable Absolute Nucleated RBC Not Reportable Total Counted 100 Neutrophils
[2020-09-20 23:46] VITALS: BP 121/68; PULSE 79; RESP 20; O2SAT 97
[2020-09-20 23:48] LABS: Anion Gap 8 mmol/L (8-16); Blood Urea Nitrogen 22 mg/dL (7-17); Calcium 9.8 mg/dL (8.4-10.2); Carbon Dioxide 36 mmol/L (22-30); Chloride 91 mmol/L (98-107); Estimated CRCL calculation 49 ml/min; Estimated Glomerular Filt Rate > 60; Glucose 234 mg/dL (65-105); Potassium 4.5 mmol/L (3.4-5.0); Sodium 135 mmol/L (137-145)
[2020-09-21] VITALS (28 sets, daily range): BP systolic 121–156; BP diastolic 53–76; PULSE 69–85; RESP 12–34; TEMP 36.1–37.4; O2SAT 96–100; BMI 25.1
[2020-09-21] LABS: Troponin I 0.017 ng/mL (0.000-0.034)
[2020-09-21] LABS: Amphetamine Screen Urine Negative (Negative); Barbiturate Screen Urine Negative (Negative); Benzodiazepines Screen Urine Negative (Negative); Cannabinoid Screen Urine Positive (Negative); Cocaine Screen Urine Negative (Negative); Methadone Screen Urine Negative (Negative); Opiate Screen Urine Negative (Negative); Phencyclidine Screen Urine Negative (Negative)
--- NOTE | 2020-09-21 | ECHO_ITS ---
Patient Info Name: Dariana Duncan Age: 64 years : 1955 Gender: Female Ht: 64 in Wt: 146 lbs BSA: 1.74 m2 HR: 79 bpm BP: 121 / 60 mmHg Heart Rhythm: Sinus Rhythm Technical Quality: Good Exam Date: 09/21/2020 10:30 AM Exam Location: [facility] Pulmonary Exam Room: ICU-5 Patient Status: Inpatient Admit Date: 09/21/2020 Staff Ordering Physician: Rick Jurado MD Bulb Weeder: DEMAR[facility] Attending Provider: Garret Strong MD Exam Type: CA echo doppler color flow Study Info Indications - NSTEMI Complete two-dimensional, color flow and Doppler transthoracic echocardiogram is performed. Summary 1. Complete two-dimensional, color flow and Doppler transthoracic echocardiogram is performed. 2. Left ventricular chamber dimension is normal. 3. Left ventricular systolic function is normal, estimated at 65-70%. 4. The left ventricular diastolic function is grade I diastolic dysfunction. 5. E/e' 13 is mildly elevated. 6. There is mild aortic valve sclerosis. Left Ventricle E/e' 13 is mildly elevated. Left ventricular chamber dimension is normal. Left ventricular systolic function is normal, estimated at 65-70%. The left ventricular diastolic function is grade I diastolic dysfunction. Right Ventricle Right ventricular systolic function is normal with normal TAPSE 2.0 cm. Right ventricular chamber dimension is normal. Left Atria Left atrial chamber dimension is normal. Right Atria Right atrial chamber dimension is normal. Aortic Valve The aortic valve is trileaflet. There is mild aortic valve sclerosis. There is no aortic valve stenosis. There is no aortic valve regurgitation. Pulmonic Valve There is no pulmonic regurgitation. Mitral Valve There is no mitral valve stenosis. There is no mitral valve regurgitation. Tricuspid Valve There is no tricuspid valve regurgitation. Pericardium/Pleural There is no pericardial effusion. Inferior Vena Cava Normal inferior vena cava with >50% collapse upon inspiration consistent with normal right atrial pressure, 5 mmHg. Aorta The aortic root size at the sinus of Valsalva is normal. Left Ventricular Outflow Tract Name Value Normal LVOT 2D LVOT Diameter 1.6 cm LVOT Doppler LVOT Peak Gradient 5 mmHg LVOT Mean Gradient 3 mmHg LVOT VTI 26 cm LVOT VTI/AV VTI Ratio 0.7 LVOT Stroke Volume 51 ml LVOT CO 3.7 l/min LVOT CI 2.2 l/min/m2 Pulmonic Valve Name Value Normal PV Doppler PV Peak Gradient 4 mmHg Mitral Valve Name Value Normal -
[2020-09-21 00:32] LABS: Alveolar/Arterial O2 Gradient 104.7 mmHg; Base Excess ABG -3.1 mEq/l (+/-2.0); Fractional Inspired Oxygen 35 %; HCO3 ABG 26.1 mEq/l (22.0-26.0); Oxygen Content ABG 19.5 %vol (16.0-22.0); Oxygen Saturation ABG 90.1 % (95.0-100.0); Oxyhemoglobin 89.9 % THb (90.0-100.0); PO2 ABG 69.6 mmHg (80.0-100.0); PO2 FiO2 Ratio Arterial Blood 1.99 %; Total Hemoglobin 15.4 g/dL (12.0-18.0)
[2020-09-21 00:36] LABS: Device NON-INVASIVE VENT; Modified Allen's Test Pass; PCO2 ABG 64.7 mmHg (35.0-45.0); Site Drawn RIGHT RADIAL; pH ABG 7.223 (7.350-7.450)
[2020-09-21 00:37] LABS: Non-Invasive Expiratory Pressure 6 CMH2O; Non-Invasive Inspiratory Pressure 12 CMH2O; Non-Invasive Vent Rate 10 /MIN
--- NOTE | 2020-09-21 00:41 | PC.NURSE ---
bipap change 18/8 rate 16 o2-30%
[2020-09-21 01:33] LABS: Reflex Lactic Acid Yes or No Add Lactic
[2020-09-21] MEDS: SODIUM CHLORIDE 0.9% IV 1,000 ML 150 ML IV CONT (01:45)
[2020-09-21 02:09] LABS: Alveolar/Arterial O2 Gradient 84.3 mmHg; Base Excess ABG -2.1 mEq/l (+/-2.0); Fractional Inspired Oxygen 35 %; HCO3 ABG 25.7 mEq/l (22.0-26.0); Oxygen Content ABG 20.6 %vol (16.0-22.0); Oxygen Saturation ABG 96.7 % (95.0-100.0); Oxyhemoglobin 94.8 % THb (90.0-100.0); PCO2 ABG 56.1 mmHg (35.0-45.0); PO2 FiO2 Ratio Arterial Blood 2.86 %; Total Hemoglobin 15.4 g/dL (12.0-18.0)
[2020-09-21 02:11] LABS: Device NON-INVASIVE VENT; Modified Allen's Test Pass; Site Drawn RIGHT RADIAL; pH ABG 7.279 (7.350-7.450)
[2020-09-21 02:12] LABS: Non-Invasive Expiratory Pressure 8 CMH2O; Non-Invasive Inspiratory Pressure 18 CMH2O; Non-Invasive Vent Rate 16 /MIN
[2020-09-21 02:23] LABS: Lactic Acid Reflex 1.3 mmol/L (0.7-2.1)
[2020-09-21 02:41] LABS: Creatine Kinase 108 U/L (30-135)
--- NOTE | 2020-09-21 04:15 | PM.IMHP ---
H&P: HPI History of Present Illness Date/Time: 09/21/20 04:15 Chief Complaint: altered mental status Narrative: Patient 62-year-old female presents the emergency department with EMS unresponsiveness and posturing. Patient was last seen normal on thursday. Patient arrivesd with gaze to leelee right, pinpoint pupils and non repsonsvie state. She has shaking of left leg and arms in decorticate position. During CT, patient raised left arm p which became stiff. She arrived on 4L nasal cannula. Per records she was recently discahrged from the hospital from [facility] for hypertlycemia and TIA. She lives on herself. The patient is opening her eyes but with unpurposeful movements. she is moving her left extremities but not the right side. she was given 4 mg iv ativan in the ED. she is noted to leukoctyosis, UTI and hypercapnia. She was placed on BIPAP in the ED, in hoeps that her postictal phase will pass and she will become more alert with imporvement in her pCO2 level. She is currently minimally responsive, oxygen status maintained on current BIPAP setting. rest of the ROS could nto be obatined due to current medical condition Review of Systems Review of Systems: ROS unobtainable: Yes unobtainable due to medical condition and unobtainable due to mental status PMFSH Social History Social History Smoking status: Current every day smoker Additional smoking assessment comments: does not tobacco, smokes marijuana Alcohol intake: current Drinks per week: 1 Substance use: current Substance use type: marijuana Other substance usage details: medical marijuana-chronic pain Spiritual care concerns: No Meds Home Medications and Allergies Home Medications Medication Instructions Recorded Confirmed Type atorvastatin 20 mg PO DAILY 09/21/20 09/21/20 History gabapentin 09/21/20 History insulin glargine [Lantus Solostar SUBCUT 09/21/20 History U-100 Insulin] insulin lispro [Humalog U-100 09/21/20 History Insulin] levothyroxine 175 mcg PO DAILY 09/21/20 09/21/20 History mirabegron [Myrbetriq] 50 mg PO DAILY 09/21/20 09/21/20 History nadolol 60 mg PO DAILY 09/21/20 09/21/20 History oxycodone-acetaminophen 1 tablet PO BID 09/21/20 09/21/20 History Allergies Allergy/AdvReac Type Severity Reaction Status Date / Time Unable to Assess Allergy Verified 09/20/20 23:09 Vital Signs Vital Signs - 24 hr 09/20/20 22:22 09/20/20 22:35 09/20/20 22:36 Temperature 96.7 F L 99 F Pulse Rate 87 83 83 Respiratory Rate 21 H 24 H 24 H Blood Pressure 176/146 H 152/81 H 152/81 H Pulse Oximetry 96 95 95 09/20/20 23:01 09/20/20 23:09 09/20/20 23:46 Temperature Pulse Rate 81 75 79 Respiratory Rate 27 H 28 H 20 Blood Pressure 124/68 121/68 Pulse Oximetry 94 92 97 09/21/20 00:41 09/21/20 01:15 09/21/20 03:03 Temperature Pulse Rate 79 81 Respiratory Rate 34 H 26 H 28 H Blood Pressure 133/76 130/66 Pulse Oximetry 96 97 09/21/20 03:57 Temperature Pulse Rate 81 Respiratory Rate 25 H Blood Pressure Pulse Oximetry 96 Exam Narrative: Exam Narrative: GENERAL: ill-appearing, minimally repsonsvie, eyes open without any purposeful movement HEAD: Normocephalic, atraumatic. EYES: PERRLA ENT: Nares clear, no rhinorrhea or epistaxis. Mucous membranes moist. NECK: Supple. no lymphadenoapthy CHEST: Clear to auscultation. No respiratory distress. HEART: Regular rate and rhythm. No murmur heard. Normal peripheral pulses. ABDOMEN: Soft, nontender, nondistended, normal active bowel sounds. EXTREMITIES: Normal range of motion. No edema. SKIN: Warm, dry, no rash. NEURO: minimaly repsonsive, eyes open, moves her left arm and legs more compared to the right side H&P: Results Labs Labs: Short CBC 09/20/20 Range/Units 22:30 WBC 31.0 H (4.5-10.0) K/mm3 Hgb 18.1 H (12.0-15.0) g/dL Hct 61.8 H (37.0-47.0) % Plt Count 659 H (150-375) k/mm3 BMP 09/20/20 22:30 Sodium 135 L
[2020-09-21 04:29] LABS: Glucose Point of Care 243 (65-105)
[2020-09-21 04:53] LABS: Alveolar/Arterial O2 Gradient 88.2 mmHg; Base Excess ABG -1.9 mEq/l (+/-2.0); Fractional Inspired Oxygen 35 %; HCO3 ABG 24.9 mEq/l (22.0-26.0); Oxygen Content ABG 20.6 %vol (16.0-22.0); Oxygen Saturation ABG 97.2 % (95.0-100.0); PCO2 ABG 50.2 mmHg (35.0-45.0); PO2 FiO2 Ratio Arterial Blood 2.94 %; Total Hemoglobin 15.2 g/dL (12.0-18.0); pH ABG 7.314 (7.350-7.450)
[2020-09-21 04:54] LABS: Device NON-INVASIVE VENT; Modified Allen's Test Pass; Site Drawn LEFT RADIAL
[2020-09-21 04:55] LABS: Non-Invasive Expiratory Pressure 8 CMH2O; Non-Invasive Inspiratory Pressure 18 CMH2O; Non-Invasive Vent Rate 16 /MIN
--- NOTE | 2020-09-21 05:51 | ADMIMU ---
This patient, Dariana Duncan, was admitted to ICU status, and placed in Intensive Care Unit-5 at 0345. Patient/family oriented to hospital policies and general routines including ID bracelet, bed and alarms, visiting hours, pain management, procedures, bathroom and other care routines, personal items, smoking policy, room service/diet, and visiting hours. Information on how to activate the Rapid Response Team has been discussed. Patient/Family are encouraged to report perceived risks to care and to ask questions if they do not understand what they are told or what they should do.
--- NOTE | 2020-09-21 05:52 | PC.NURSE ---
Addendum entered by Halina Cho RN 09/21/20 06:47: son also states Mothers store team member is Dr Mcmullen. Original Note: 0510 09/21/20 Spoke with son Jose and he provided what information he could for admit assessment including suicide screening. He would like a care coordination consult because he and his brother do not feel their mother is fit to take care of herself and he is moving out in 3 months. He also notes he thought she would want to be a DNR but at this time he wants everything done. He and his brother are going to discuss it. Updated to visiting policy.
--- NOTE | 2020-09-21 05:55 | PC.NURSE ---
0540 09/21/20 called [facility] for current prescriptions. They only have partial information because pt also refills at [facility]. Son Jose unsure of what she takes but did clarify she no longer uses insulin pump.
[2020-09-21 06:29] LABS: Troponin I 0.066 ng/mL (0.000-0.034)
[2020-09-21 06:41] LABS: Glucose Point of Care 248 (65-105)
[2020-09-21 06:50] LABS: Hemoglobin 14.8 g/dL (12.0-15.0); Mean Corpuscular Hemoglobin 21.3 pg (26-34); Mean Corpuscular Volume 73.3 fl (80-100); Mean Platelet Volume 10.7 fl (7.4-10.4); Platelet Count Result 320 k/mm3 (150-375); Red Blood Count 6.96 M/mm3 (4.2-5.4); Red Cell Distribution Width 19.3 % (11.5-14.5); White Blood Count 20.3 K/mm3 (4.5-10.0)
[2020-09-21 07:00] LABS: Anion Gap 6 mmol/L (8-16); Blood Urea Nitrogen 19 mg/dL (7-17); Calcium 8.1 mg/dL (8.4-10.2); Carbon Dioxide 30 mmol/L (22-30); Chloride 99 mmol/L (98-107); Estimated CRCL calculation 71 ml/min; Estimated Glomerular Filt Rate > 60; Glucose 244 mg/dL (65-105); Potassium 4.8 mmol/L (3.4-5.0); Sodium 135 mmol/L (137-145)
[2020-09-21 07:02] LABS: Atypical Lymphocytes Present; Band Neutrophils Percent 3 % (0-6); Lymphocytes Absolute Manual 0.81 K/mm3 (1.1-4.5); Monocytes Percent Manual 3 % (3-9); Neutrophils Absolute Manual 18.87 K/mm3 (1.7-7.2); Neutrophils Percent Manual 90 % (46-73); Platelet Estimate Adequate (Adequate); Total Cells Counted 100
[2020-09-21 07:43] LABS: Glucose Point of Care 245 (65-105)
[2020-09-21] MEDS: ENOXAPARIN 40 MG/0.4 ML SYRINGE SUB-Q (07:59)
[2020-09-21] MEDS: INSULIN ASPART (*BKC) 100 UNITS/ML SUB-Q ×3 (07:59→16:11)
[2020-09-21] MEDS: SODIUM CHLORIDE 0.9% IV 1,000 ML 125 ML IV CONT ×2 (07:59→16:11)
[2020-09-21] MEDS: levETIRAcetam 500MG/NACL 100ML 500 MG/100 ML BAG 400 MG IVPB ×2 (07:59→20:45)
--- NOTE | 2020-09-21 08:51 | ECG_ITS ---
Measurements Intervals [place] Rate: 76 P: 64 [place]: 130 QRS: 45 QRSD: 87 T: 38 QT: 406 QTc: 459 Interpretive Statements SINUS RHYTHM NORMAL ECG Electronically Signed On 09-21-2020 9:22:55 CDT by Everton Trent D.O.
[2020-09-21 10:09] LABS: Creatine Kinase 119 U/L (30-135)
[2020-09-21] MEDS: INSULIN GLARGINE (*BKC) 100 UNITS/ML 10 UNITS SUB-Q (10:42)
[2020-09-21] MEDS: ASPIRIN 300 MG SUPPOSITORY RECTAL (10:42)
--- NOTE | 2020-09-21 10:45 | WPDCNINT ---
Assessment and Plan Assessment and plan (1) Sepsis: Code(s): A41.9 - Sepsis, unspecified organism Status: Acute Assessment and Plan: Patient does met criteria of sepsis as she has UTI Lactic acidosis could also be secondary to seizures Lactate level is clear with IV fluids She never required any vasopressors Continued IV fluids Cultures have been sent and pending Continue Rocephin for UTI (2) UTI (urinary tract infection): Qualifiers: Hematuria presence: without hematuria Urinary tract infection type: site unspecified Qualified Code(s): N39.0 - Urinary tract infection, site not specified Code(s): N39.0 - Urinary tract infection, site not specified Status: Acute Assessment and Plan: See above (3) Lactic acidosis: Code(s): E87.2 - Acidosis Status: Acute Assessment and Plan: Could be secondary to sepsis versus seizures Lactic acidosis has since cleared with IV fluids Patient never required vasopressors Monitor (4) Seizure: Code(s): R56.9 - Unspecified convulsions Status: Acute Assessment and Plan: Patient appear to have had a seizure at home and then again in ED Could be secondary to hypoglycemia versus from past CVA EEG is being done Will also check MRI Consult neurology Checks TSH Continue Keppra (5) Acute dehydration: Code(s): E86.0 - Dehydration Status: Acute Assessment and Plan: Improved with IV fluids which will be continued (6) Acute alteration in mental status: Code(s): R41.82 - Altered mental status, unspecified Status: Acute Assessment and Plan: Head CT shows old CVA and encephalomalacia Encephalopathy appears to be multifactorial. Postictal, sepsis, and then patient received benzodiazepine. Appears to be improving Hold further sedatives Monitor closely (7) Acute respiratory failure: Code(s): J96.00 - Acute respiratory failure, unspecified whether with hypoxia or hypercapnia Status: Acute Assessment and Plan: Presentation patient was found to be hypercarbic and respiratory acidosis Chest x-ray clear Likely secondary to encephalopathy Patient was placed on BiPAP and ABG appears to have improved Patient mental status abuse to be improving and patient is more responsive now Will continue BiPAP at this time as patient is improving and hopefully over next few hours as the Ativan wears off and mental status improved patient will come off of BiPAP. Obviously if she develops new symptoms or deteriorates she will need intubation Additional Plan DVT prophylaxis -Lovenox Nutrition -NPO at this Code Status - Full Code Patient's son updated at bedside Total Critical Care Time - 32 minutes Due to a high probability of clinically significant, life threatening deterioration, the patient required my highest level of preparedness to intervene emergently and I personally spent this critical care time directly and personally managing the patient. This critical care time included obtaining a history; examining the patient; pulse oximetry; ordering and review of studies; arranging urgent treatment with development of a management plan; evaluation of patient's response to treatment; frequent reassessment; and discussions with other providers. It was exclusive of separately billable procedures and treating other patients and teaching time. Please see Assessment and Plan section and the rest of the note for further information on patient assessment and treatment Price Changer Consult Note Consult date: 09/21/20 Time Seen: 08:15 HPI: Dariana Duncan is a 64 year old female with past medical history of diabetes mellitus and CVA who was recently admitted at [facility] for DKA and was discharged on Thursday presented yesterday with EMS for altered mental status. Per her son who I met today, patient was having high blood sugars at the time of discharge and her insulin pump was not working. She we
[2020-09-21 11:59] LABS: Glucose Point of Care 224 (65-105)
[2020-09-21 15:55] LABS: Ammonia 15 umol/L (9-30)
[2020-09-21 15:58] LABS: Glucose Point of Care 225 (65-105)
[2020-09-21 16:14] LABS: Alveolar/Arterial O2 Gradient 64.1 mmHg; Base Excess ABG 0.9 mEq/l (+/-2.0); Fractional Inspired Oxygen 30 %; HCO3 ABG 26.7 mEq/l (22.0-26.0); Oxygen Content ABG 19.7 %vol (16.0-22.0); Oxyhemoglobin 95.7 % THb (90.0-100.0); PCO2 ABG 47.1 mmHg (35.0-45.0); PO2 ABG 94.5 mmHg (80.0-100.0); PO2 FiO2 Ratio Arterial Blood 3.15 %; Total Hemoglobin 14.6 g/dL (12.0-18.0); pH ABG 7.372 (7.350-7.450)
[2020-09-21 16:16] LABS: Device BIPAP; Expiratory Pressure 8 cmH2O; Inspiratory Pressure 18 cmH2O; Modified Allen's Test Pass; Site Drawn RIGHT RADIAL
--- NOTE | 2020-09-21 16:42 | PM.EVENT ---
Event Note Event Note Event Note: Patient admitted by my colleague earlier this morning. At the time of my follow-up visit she is hypersomnolent and minimally responsive to sternal rub. I have called to neurologist to see if EEG results show subclinical ongoing seizure activity. Patient is currently on Keppra in ICU stable and under close supervision.
[2020-09-21 20:20] LABS: Glucose Point of Care 165 (65-105)
[2020-09-21 23:21] LABS: Glucose Point of Care 188 (65-105)
[2020-09-22] VITALS (18 sets, daily range): BP systolic 138–173; BP diastolic 63–119; PULSE 70–94; RESP 16–24; TEMP 36.1–37.4; O2SAT 96–100
[2020-09-22] MEDS: SODIUM CHLORIDE 0.9% IV 1,000 ML 125 ML IV CONT ×2 (00:02→09:05)
[2020-09-22] MEDS: INSULIN ASPART (*BKC) 100 UNITS/ML SUB-Q ×4 (03:56→17:49)
[2020-09-22 03:57] LABS: Glucose Point of Care 274 (65-105)
[2020-09-22 05:00] LABS: Basophils Percent Auto 0.3 % (0.2-1.2); Hematocrit 43.6 % (37.0-47.0); Hemoglobin 13.1 g/dL (12.0-15.0); Immature Granulocyte Absolute 0.14 K/mm3 (0.00-0.031); Immature Platelet Fraction Pct 5.2 % (0.9-11.2); Lymphocytes Absolute Auto 0.95 K/mm3 (0.9-3.2); Lymphocytes Percent Auto 6.6 % (18.3-44.2); Mean Corpuscular Hemoglobin 21.4 pg (26-34); Mean Corpuscular Volume 71.2 fl (80-100); Mean Platelet Volume 11.1 fl (7.4-10.4); Monocytes Absolute Auto 0.8 K/mm3 (0.1-0.6); Monocytes Percent Auto 5.6 % (2.6-8.5); Neutrophils Absolute Auto 12.5 K/mm3 (1.3-6.7); Neutrophils Percent Auto 86.5 % (45.5-73.1); Platelet Count Result 231 k/mm3 (150-375); Red Blood Count 6.12 M/mm3 (4.2-5.4); Red Cell Distribution Width 18.6 % (11.5-14.5); White Blood Count 14.4 K/mm3 (4.5-10.0)
[2020-09-22 05:16] LABS: Anion Gap 5 mmol/L (8-16); Blood Urea Nitrogen 17 mg/dL (7-17); Calcium 8.1 mg/dL (8.4-10.2); Carbon Dioxide 25 mmol/L (22-30); Chloride 102 mmol/L (98-107); Estimated CRCL calculation 84 ml/min; Estimated Glomerular Filt Rate > 60; Glucose 264 mg/dL (65-105); Potassium 4.8 mmol/L (3.4-5.0); Sodium 132 mmol/L (137-145)
[2020-09-22 08:49] LABS: Free T4 Free Thyroxine 1.07 ng/mL (0.78-2.19)
[2020-09-22 09:08] LABS: Alveolar/Arterial O2 Gradient 35.1 mmHg; Base Excess ABG 1.7 mEq/l (+/-2.0); Device NASAL CANNULA; Fractional Inspired Oxygen 26 %; HCO3 ABG 25.4 mEq/l (22.0-26.0); Liters per Minute 1.5 LPM; Modified Allen's Test Pass; Oxygen Content ABG 18.9 %vol (16.0-22.0); Oxygen Saturation ABG 98.1 % (95.0-100.0); Oxyhemoglobin 96.8 % THb (90.0-100.0); PCO2 ABG 36.8 mmHg (35.0-45.0); PO2 ABG 106.7 mmHg (80.0-100.0); Site Drawn LEFT RADIAL; Total Hemoglobin 13.8 g/dL (12.0-18.0); pH ABG 7.456 (7.350-7.450)
[2020-09-22] MEDS: INSULIN GLARGINE (*BKC) 100 UNITS/ML 20 UNITS SUB-Q (09:12)
[2020-09-22] MEDS: ENOXAPARIN 40 MG/0.4 ML SYRINGE SUB-Q (09:13)
[2020-09-22] MEDS: levETIRAcetam 500MG/NACL 100ML 500 MG/100 ML BAG 400 MG IVPB (09:13)
[2020-09-22] MEDS: ASPIRIN 300 MG SUPPOSITORY RECTAL (09:14)
[2020-09-22 09:19] LABS: Glucose Point of Care 258 (65-105)
[2020-09-22] MEDS: LABETALOL HCL INJ 100 MG/20 ML VIAL 20 MG IV PUSH (09:38)
--- NOTE | 2020-09-22 10:53 | WPDINTPN ---
Progress Note: A&P Assessment and Plan (1) Acute respiratory failure: Code(s): J96.00 - Acute respiratory failure, unspecified whether with hypoxia or hypercapnia Status: Acute Assessment and Plan: Presentation patient was found to be hypercarbic and respiratory acidosis Chest x-ray was clear Likely secondary to encephalopathy Patient was placed on BiPAP and ABG appears to have improved I took her off BiPAP and placed on nasal cannula. ABG was checked 2 hours later and does not show any hypercarbia Will continue supplemental oxygen (2) Sepsis: Code(s): A41.9 - Sepsis, unspecified organism Status: Acute Assessment and Plan: Patient does met criteria of sepsis as she has UTI Lactic acidosis could also be secondary to seizures Lactate level is clear with IV fluids She never required any vasopressors and in fact now she is hypertensive Decrease IV fluids Cultures have been sent and negative will now Continue Rocephin for UTI (3) UTI (urinary tract infection): Qualifiers: Hematuria presence: without hematuria Urinary tract infection type: site unspecified Qualified Code(s): N39.0 - Urinary tract infection, site not specified Code(s): N39.0 - Urinary tract infection, site not specified Status: Acute Assessment and Plan: See above (4) Lactic acidosis: Code(s): E87.2 - Acidosis Status: Acute Assessment and Plan: Could be secondary to sepsis versus seizures Lactic acidosis has since cleared with IV fluids Patient never required vasopressors Monitor (5) Seizure: Code(s): R56.9 - Unspecified convulsions Status: Acute Assessment and Plan: Patient appear to have had a seizure at home and then again in ED Could be secondary to hypoglycemia versus from past CVA EEG has been done yesterday but the report is pending Head CT shows old CVA and encephalomalacia MRI IMPRESSION: 1. No acute intracranial findings. 2. Chronic age related findings. 3. 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 Consulted neurology and page Dr. Kemp this morning Does have history of hypothyroidism. Free T4 level is normal and T3 level is pending Continue Keppra Ammonia level was normal Encephalopathy appears to be multifactorial. Postictal, sepsis, and then patient received benzodiazepine. Encephalopathy is improved but patient still is not at baseline Continue to hold all sedatives (6) Acute dehydration: Code(s): E86.0 - Dehydration Status: Acute Assessment and Plan: Improved with IV fluids which will be continued (7) Acute alteration in mental status: Code(s): R41.82 - Altered mental status, unspecified Status: Acute Assessment and Plan: See above (8) Diabetes mellitus: Code(s): E11.9 - Type 2 diabetes mellitus without complications Status: Acute Assessment and Plan: Uncontrolled Increase Lantus Continue sliding scale (9) Hypertension: Code(s): I10 - Essential (primary) hypertension Status: Acute Assessment and Plan: P.r.n. labetalol Additional Plan DVT prophylaxis -Lovenox Nutrition -NPO at this Code Status - Full Code Total Critical Care Time - 30 minutes Due to a high probability of clinically significant, life threatening deterioration, the patient required my highest level of preparedness to intervene emergently and I personally spent this critical care time directly and personally managing the patient. This critical care time included obtaining a history; examining the patient; pulse oximetry; ordering and review of studies; arranging urgent treatment with development of a management plan; evaluation of patient's response to treatment; frequent reassessment; and discussions with other providers. It was exclusive of separately billable procedures and treating other patients and teaching time. Please see Assessment and Plan section and the rest of
--- NOTE | 2020-09-22 11:19 | WPDNEUROLOGY ---
Neurology EEG Report General Information Date of Study: 09/21/20 TEST EEG DIAGNOSIS seizures CONDITION OF RECORDING unresponsive EEG NUMBER [id number] EEG DESCRIPTION whole record consists of medium to high voltage 5 to 7 hertz per 2nd theta admixed with medium to high-voltage 2 to 3 hertz per 2nd delta activity which is more prominent on the left side and admixed with periods of slow activity regularly intermittently for 1 to 2 seconds. Intermittent sharp wave transients are seen bilaterally with right-sided dominance. Hyperventilation obviously not done and so as the photic stimulation not done. Paroxysmal, focal, lateralizing. IMPRESSION abnormal record due to the presence of bihemispheric delta activity admixed with periods of decrement in the voltage particularly on the right side. These abnormalities are suggestive of focal structural lesion with more involvement of the right hemisphere. Intermittent decrement in the activity could be suggestive of underlying hypoxic insult
--- NOTE | 2020-09-22 11:25 | P.NEURO_ITS ---
Neurology EEG Report General Information Date of Study: 09/21/20 TEST EEG DIAGNOSIS seizures CONDITION OF RECORDING awake, drowsy and sleep EEG NUMBER [id number] CLINICAL HISTORY patient's daughter reported patient was in [facility] for a week for temporal lobe seizures last month EEG DESCRIPTION basic resting occipital frequency consists of large amount of well-organized low voltage 8 to 10 hertz per 2nd alpha admixed with minimal amount of low- voltage 15 to 18 hertz per 2nd beta and intermittent 6 to 7 hertz per 2nd theta activity. During drowsiness low-voltage beta activity seen diffusely admixed waxing and waning posterior alpha rhythm and 6 to 7 hertz per 2nd theta activity. Bilateral symmetrical sleep activity seen during sleep. Hyperventilation not done. photic stimulation produced normal drive. Non paroxysmal. Nonfocal. Nonlateralizing. IMPRESSION No significant abnormalities noted
[2020-09-22 12:35] LABS: Glucose Point of Care 208 (65-105)
[2020-09-22] MEDS: levETIRAcetam IV 250 MG in DEXTROSE 5% 100 ML 410 MG IVPB (14:02)
[2020-09-22] MEDS: hydrALAZINE HCL 20 MG/ML VIAL IV PUSH (14:04)
--- NOTE | 2020-09-22 16:45 | PM.IMPN ---
Progress Note: A&P Assessment and Plan (1) Seizure: Code(s): R56.9 - Unspecified convulsions Status: Acute (2) Acute alteration in mental status: Code(s): R41.82 - Altered mental status, unspecified Status: Acute (3) Acute dehydration: Code(s): E86.0 - Dehydration Status: Acute (4) UTI (urinary tract infection): Qualifiers: Hematuria presence: without hematuria Urinary tract infection type: site unspecified Qualified Code(s): N39.0 - Urinary tract infection, site not specified Code(s): N39.0 - Urinary tract infection, site not specified Status: Acute (5) Leukocytosis: Code(s): D72.829 - Elevated white blood cell count, unspecified Status: Acute (6) Lactic acidosis: Code(s): E87.2 - Acidosis Status: Acute Additional Plan 09/21/2020 # Status epilepticus: likely. given 4 mg ativan. 1 gm keppra loaded in the ED. continue 500 mg iv q12 hr. neurology consulted from the ED. will get EEG. # acute encephalopathy: sepsis vs seizure. CT head with old left frontoparietal infarct. neuro consulted. # Lactic acidosis: resolved with hydration. # severe dehydration: hb 18 s/o hemoconcentration. continue iv fluid resuscitation. # Acute hypercapnic respiratory failure: on BIPAP, abg improved with it while in the ED. will get repeat ABG. if the mental status does not improve, will likely need mechanical ventilation. # UTI: ceftriaxone. follow cultures # leukocytosis: blood culture obtained. cxr negative. ua positive for UTI. continue ceftriaxone. # hx of left frontal stroke # DVT proph: lovenox # DM2: on insulin pump at home. continue ssi here # hypothyroidism: levothyroxine. recently increased dose. TSH was at 26. # NPO # Full code 09/22/2020 Patient was some improvement although remains very far from her baseline of alert and oriented x3 and independent. son Sandro will be her surrogate decision maker Patient off BiPAP on nasal cannula Patient on any IV antibiotics for urinary tract infection MRI negative for acute findings EEG indicative of global encephalopathy, no seizure activity noted Remain in ICU under care of plaster caster Subjective Date/time seen: 09/22/20 16:45 Patient awakens to voice but does not follow with eyes and is nonverbal. This is an improvement from previous day when she was nearly unresponsive. Her son Sandro is bedside he provides history that his mother has a seizure disorder and also episodes of hypoglycemia of rapid onset that often prevent her from being able to treat herself. He hypothesizes that she may have felt like she was going to have a seizure and laid down on the couch or that maybe her sugar was dropping rapidly and she laid down unable to consume her dinner found next to her. He is her oldest son and will be her surrogate decision maker. Patient is not . Patient is alert and oriented x3 at baseline and does live independently and care for herself with all of her ADLs and IDLs. Unclear patient suffered irreversible injury. I have advised the son that we will continue to treat her as aggressively as possible and wait and watch. Exam Narrative: Exam Narrative: GENERAL: ill-appearing, minimally responsive a little more than yesterday, eyes open without any purposeful movement HEAD: Normocephalic, atraumatic. EYES: PERRLA ENT: Nares clear, no rhinorrhea or epistaxis. Mucous membranes moist. NECK: Supple. No JVD CHEST: Clear to auscultation. No respiratory distress. HEART: Regular rate and rhythm. No murmur heard. Normal peripheral pulses. ABDOMEN: Soft, nontender, nondistended, normal active bowel sounds. SKIN: Warm, dry, no rash. Ecchymosis noted NEURO: Minimally responsive, eyes open, moves her left arm and legs more compared to the right side. Objective Data Vital Signs Vital Signs: Vital Signs - 24 hr 09/21/20 17:50 09/21/20 18:00 09/21/20 19:16 Temperature Pulse Rate 71 75 81 Respir
[2020-09-22 17:03] LABS: Glucose Point of Care 218 (65-105)
[2020-09-22] MEDS: levETIRAcetam IV 750 MG in DEXTROSE 5% 100 ML 430 MG IVPB (20:28)
[2020-09-22 20:34] LABS: Glucose Point of Care 167 (65-105)
--- NOTE | 2020-09-22 22:28 | PC.NURSE ---
Pt extremely agitated, continually throwing arms and legs out of right side of bed. Taking at least 2 nurses to keep in bed. Pt unresponsive to redirection. One time order for ativan 0.5mg recieved by Johanny LUKE.
[2020-09-22 23:42] LABS: Glucose Point of Care 164 (65-105)
[2020-09-23] VITALS (21 sets, daily range): BP systolic 104–180; BP diastolic 55–97; PULSE 61–91; RESP 18–28; TEMP 36.4–37.1; O2SAT 96–100
[2020-09-23] MEDS: LORazepam INJ (*CRX) 2 MG/ML VIAL 0.5 MG IV PUSH (01:38)
[2020-09-23] MEDS: hydrALAZINE HCL 20 MG/ML VIAL IV PUSH (01:39)
[2020-09-23] MEDS: LORazepam INJ (*CRX) 2 MG/ML VIAL (01:49)
[2020-09-23] MEDS: SODIUM CHLORIDE 0.9% IV 1,000 ML 50 ML IV CONT (02:34)
[2020-09-23 05:16] LABS: Hematocrit 45.5 % (37.0-47.0); Hemoglobin 13.9 g/dL (12.0-15.0); Immature Platelet Fraction Pct 5.6 % (0.9-11.2); Mean Corpuscular HGB Conc 30.5 g/dl (32-36); Mean Corpuscular Hemoglobin 21.2 pg (26-34); Mean Corpuscular Volume 69.5 fl (80-100); Mean Platelet Volume 10.5 fl (7.4-10.4); Platelet Count Result 266 k/mm3 (150-375); Red Blood Count 6.55 M/mm3 (4.2-5.4); Red Cell Distribution Width 19.1 % (11.5-14.5); White Blood Count 17.3 K/mm3 (4.5-10.0)
[2020-09-23 05:28] LABS: Alanine Aminotransferase 16 U/L (4-35); Albumin Level 3.5 g/dL (3.5-5.1); Alkaline Phosphatase 79 U/L (38-126); Anion Gap 6 mmol/L (8-16); Aspartate Amino Transferase 28 U/L (14-36); Blood Urea Nitrogen 14 mg/dL (7-17); Calcium 8.4 mg/dL (8.4-10.2); Carbon Dioxide 29 mmol/L (22-30); Chloride 98 mmol/L (98-107); Estimated CRCL calculation 71 ml/min; Estimated Glomerular Filt Rate > 60; Glucose 236 mg/dL (65-105); Magnesium 1.9 mg/dL (1.6-2.3); Potassium 3.5 mmol/L (3.4-5.0); Sodium 133 mmol/L (137-145)
[2020-09-23] MEDS: INSULIN ASPART (*BKC) 100 UNITS/ML SUB-Q ×3 (06:00→13:50)
[2020-09-23 06:25] LABS: Glucose Point of Care 276 (65-105)
[2020-09-23] MEDS: ASPIRIN 300 MG SUPPOSITORY RECTAL (08:50)
[2020-09-23] MEDS: ENOXAPARIN 40 MG/0.4 ML SYRINGE SUB-Q (08:50)
[2020-09-23 08:54] LABS: Glucose Point of Care 224 (65-105)
[2020-09-23] MEDS: levETIRAcetam IV 750 MG in DEXTROSE 5% 100 ML 100 MG IVPB ×2 (08:56→21:57)
[2020-09-23] MEDS: INSULIN GLARGINE (*BKC) 100 UNITS/ML 20 UNITS SUB-Q (08:57)
[2020-09-23] MEDS: LABETALOL HCL INJ 100 MG/20 ML VIAL 20 MG IV PUSH (09:02)
[2020-09-23] MEDS: LEVOTHYROXINE SODIUM INJ 100 MCG/5 ML VIAL 87.5 MCG IV PUSH (09:21)
--- NOTE | 2020-09-23 10:21 | WPDINTPN ---
Progress Note: A&P Assessment and Plan (1) Seizure: Code(s): R56.9 - Unspecified convulsions Status: Acute Assessment and Plan: Patient appear to have had a seizure at home and then again in ED Could be secondary to hypoglycemia but patient has large area of infarct from past CVA EEG was done Abnormal record due to the presence of bihemispheric delta activity admixed with periods of decrement in the voltage particularly on the right side. These abnormalities are suggestive of focal structural lesion with more involvement of the right hemisphere. Intermittent decrement in the activity could be suggestive of underlying hypoxic insult Head CT shows old CVA and encephalomalacia MRI IMPRESSION: 1. No acute intracranial findings. 2. Chronic age related findings. 3. 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 Consulted neurology and I discussed case with Dr. Kemp yesterday. He believes the patient's etiology is seizures and the focus appears to be area of her last stroke. He recommended increasing Keppra to 750 mg IV q.12 hours and did not feel patient needs to be transferred for continues EEG at this time Ammonia level was normal (2) Acute alteration in mental status: Code(s): R41.82 - Altered mental status, unspecified Status: Acute Assessment and Plan: Encephalopathy appears to be multifactorial. Postictal, sepsis, and then patient received benzodiazepine. Encephalopathy is improved but patient still is not at baseline Continue to hold all sedatives if possible Neurochecks Patient has a sitter at bedside (3) Acute respiratory failure: Code(s): J96.00 - Acute respiratory failure, unspecified whether with hypoxia or hypercapnia Status: Acute Assessment and Plan: Presentation patient was found to be hypercarbic and respiratory acidosis Chest x-ray was clear Likely secondary to encephalopathy Now resolved and patient is on room air (4) Sepsis: Code(s): A41.9 - Sepsis, unspecified organism Status: Acute Assessment and Plan: Patient does met criteria of sepsis as she has UTI Lactic acidosis could also be secondary to seizures Lactate level is clear with IV fluids She never required any vasopressors and in fact now she is hypertensive Cultures have been sent and negative will now Will complete a course of Rocephin for UTI (5) UTI (urinary tract infection): Qualifiers: Hematuria presence: without hematuria Urinary tract infection type: site unspecified Qualified Code(s): N39.0 - Urinary tract infection, site not specified Code(s): N39.0 - Urinary tract infection, site not specified Status: Acute Assessment and Plan: See above (6) Acute dehydration: Code(s): E86.0 - Dehydration Status: Acute Assessment and Plan: Improved with IV fluids (7) Diabetes mellitus: Code(s): E11.9 - Type 2 diabetes mellitus without complications Status: Acute Assessment and Plan: Uncontrolled Increase Lantus Continue sliding scale (8) Hypertension: Code(s): I10 - Essential (primary) hypertension Status: Acute Assessment and Plan: P.r.n. labetalol (9) Hypothyroidism: Code(s): E03.9 - Hypothyroidism, unspecified Status: Acute Assessment and Plan: Does have history of hypothyroidism. Free T4 level is normal and T3 level is pending Continue levothyroxine Additional Plan DVT prophylaxis -Lovenox Nutrition -NPO at this Code Status - Full Code Will get speech therapy to evaluate patient's swallowing May be able to transfer out of ICU today Subjective Date/time seen: 09/23/20 10:21 Overnight events reviewed. Patient more awake and was trying to get out of bed and was speaking inappropriate words. She was still not following commands or having purposeful conversation. She was given a dose of Ativan overnight Afebrile Saturating well on 2 L nasal ca
[2020-09-23] MEDS: dexmedeTOMIDine 400 MCG/100 ML 400 MCG/100 ML BAG 8.18 MCG IV CONT (11:49)
--- NOTE | 2020-09-23 12:47 | PCSTNOTE ---
Therapist checked with nurse regarding patient and she reported she was not appropriate for bedside evaluation at this time. She was just given medication to calm her and she was sound asleep. Bedside swallow study will be completed tomorrow if appropriate.
[2020-09-23 12:56] LABS: Glucose Point of Care 246 (65-105)
[2020-09-23 16:48] LABS: Glucose Point of Care 173 (65-105)
--- NOTE | 2020-09-23 18:50 | PM.IMPN ---
Progress Note: A&P Assessment and Plan (1) Seizure: Code(s): R56.9 - Unspecified convulsions Status: Acute (2) Acute alteration in mental status: Code(s): R41.82 - Altered mental status, unspecified Status: Acute (3) Acute dehydration: Code(s): E86.0 - Dehydration Status: Acute (4) UTI (urinary tract infection): Qualifiers: Hematuria presence: without hematuria Urinary tract infection type: site unspecified Qualified Code(s): N39.0 - Urinary tract infection, site not specified Code(s): N39.0 - Urinary tract infection, site not specified Status: Acute (5) Sepsis: Code(s): A41.9 - Sepsis, unspecified organism Status: Acute (6) Acute respiratory failure: Code(s): J96.00 - Acute respiratory failure, unspecified whether with hypoxia or hypercapnia Status: Acute (7) Diabetes mellitus: Code(s): E11.9 - Type 2 diabetes mellitus without complications Status: Acute (8) Hypertension: Code(s): I10 - Essential (primary) hypertension Status: Acute (9) Hypothyroidism: Code(s): E03.9 - Hypothyroidism, unspecified Status: Acute (10) Marijuana use: Code(s): F12.90 - Cannabis use, unspecified, uncomplicated Status: Acute Additional Plan 09/21/2020 # Status epilepticus: likely. given 4 mg ativan. 1 gm keppra loaded in the ED. continue 500 mg iv q12 hr. neurology consulted from the ED. will get EEG. # acute encephalopathy: sepsis vs seizure. CT head with old left frontoparietal infarct. neuro consulted. # Lactic acidosis: resolved with hydration. # severe dehydration: hb 18 s/o hemoconcentration. continue iv fluid resuscitation. # Acute hypercapnic respiratory failure: on BIPAP, abg improved with it while in the ED. will get repeat ABG. if the mental status does not improve, will likely need mechanical ventilation. # UTI: ceftriaxone. follow cultures # leukocytosis: blood culture obtained. cxr negative. ua positive for UTI. continue ceftriaxone. # hx of left frontal stroke # DVT proph: lovenox # DM2: on insulin pump at home. continue ssi here # hypothyroidism: levothyroxine. recently increased dose. TSH was at 26. # NPO # Full code # sepsis POA 09/22/2020 Patient was some improvement although remains very far from her baseline of alert and oriented x3 and independent. son Sandro will be her surrogate decision maker Patient off BiPAP on nasal cannula Patient on any IV antibiotics for urinary tract infection MRI negative for acute findings EEG indicative of global encephalopathy, no seizure activity noted Remain in ICU under care of supervisor telephone clerks 09/23/2020 Patient continues to have agitation and altered mental status multifactorial likely toxic metabolic. Patient with UTI pyuria present on UA despite negative urine culture. Positive marijuana and U tox screen. Hypothyroidism on levothyroxine 175 mcg daily however her TSH is greater than 10. Suspect noncompliance. She will remain in ICU on Precedex drip for now. Anticipate transfer to floor tomorrow if can be weaned from Precedex safely. Continue current management. ICU and neurology recommendations appreciated. Subjective Date/time seen: 09/23/20 18:50 Patient agitated crawling out of bed had to be placed back on Precedex. Sitter remains at bedside. Will defer transfer to floor until agitation improves. Exam Narrative: Exam Narrative: GENERAL: ill-appearing, sedated on Precedex, eyes open to sternal rub HEAD: Normocephalic, atraumatic. ENT: Nares clear, no rhinorrhea or epistaxis. Mucous membranes moist. NECK: Supple. No JVD CHEST: Clear to auscultation. No respiratory distress. On 2 L nasal cannula HEART: Regular rate and rhythm. Normal peripheral pulses. ABDOMEN: Soft, nontender, nondistended, normal active bowel sounds. SKIN: Warm, dry, no rash. Ecchymosis noted NEURO: Unable to evaluate as patient is sedated current Obj
[2020-09-23 19:55] LABS: Glucose Point of Care 152 (65-105)
[2020-09-23 23:59] LABS: Glucose Point of Care 147 (65-105)
[2020-09-24] VITALS (17 sets, daily range): BP systolic 126–180; BP diastolic 54–88; PULSE 56–93; RESP 16–25; TEMP 36.5–37.1; O2SAT 92–99
[2020-09-24] MEDS: SODIUM CHLORIDE 0.9% IV 1,000 ML 50 ML IV CONT (02:02)
[2020-09-24] MEDS: dexmedeTOMIDine 400 MCG/100 ML 400 MCG/100 ML BAG IV CONT (02:03)
[2020-09-24 03:53] LABS: Glucose Point of Care 172 (65-105)
[2020-09-24 05:20] LABS: Hematocrit 41.7 % (37.0-47.0); Hemoglobin 12.4 g/dL (12.0-15.0); Mean Corpuscular HGB Conc 29.7 g/dl (32-36); Mean Corpuscular Hemoglobin 21.4 pg (26-34); Mean Corpuscular Volume 71.9 fl (80-100); Mean Platelet Volume 10.5 fl (7.4-10.4); Platelet Count Result 186 k/mm3 (150-375); White Blood Count 5.8 K/mm3 (4.5-10.0)
[2020-09-24] MEDS: LEVOTHYROXINE SODIUM INJ 100 MCG/5 ML VIAL 87.5 MCG IV PUSH (05:29)
[2020-09-24 05:31] LABS: Alanine Aminotransferase 15 U/L (4-35); Albumin Level 3.2 g/dL (3.5-5.1); Alkaline Phosphatase 60 U/L (38-126); Anion Gap 3 mmol/L (8-16); Aspartate Amino Transferase 24 U/L (14-36); Bilirubin,Total 0.8 mg/dL (0.2-1.3); Blood Urea Nitrogen 13 mg/dL (7-17); Calcium 8.2 mg/dL (8.4-10.2); Carbon Dioxide 31 mmol/L (22-30); Chloride 103 mmol/L (98-107); Estimated CRCL calculation 62 ml/min; Estimated Glomerular Filt Rate > 60; Glucose 173 mg/dL (65-105); Potassium 3.4 mmol/L (3.4-5.0); Sodium 137 mmol/L (137-145)
[2020-09-24] MEDS: levETIRAcetam IV 750 MG in DEXTROSE 5% 100 ML 100 MG IVPB (08:40)
[2020-09-24] MEDS: ASPIRIN 300 MG SUPPOSITORY RECTAL (08:41)
[2020-09-24] MEDS: ENOXAPARIN 40 MG/0.4 ML SYRINGE SUB-Q (08:41)
[2020-09-24] MEDS: INSULIN ASPART (*BKC) 100 UNITS/ML SUB-Q ×2 (08:48→11:41)
[2020-09-24] MEDS: INSULIN GLARGINE (*BKC) 100 UNITS/ML 20 UNITS SUB-Q (08:48)
--- NOTE | 2020-09-24 09:37 | WPDINTPN ---
Progress Note: A&P Assessment and Plan (1) Seizure: Code(s): R56.9 - Unspecified convulsions Status: Acute Assessment and Plan: Patient appear to have had a seizure at home and then again in ED Could be secondary to hypoglycemia but patient has large area of infarct from past CVA EEG was done Abnormal record due to the presence of bihemispheric delta activity admixed with periods of decrement in the voltage particularly on the right side. These abnormalities are suggestive of focal structural lesion with more involvement of the right hemisphere. Intermittent decrement in the activity could be suggestive of underlying hypoxic insult Head CT shows old CVA and encephalomalacia MRI IMPRESSION: 1. No acute intracranial findings. 2. Chronic age related findings. 3. 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 Consulted neurology and I discussed case with Dr. Kemp again today. He believes the patient's etiology is seizures and the focus appears to be area of her last stroke. He recommended repeating EEG tomorrow. Continue Keppra to 750 mg IV q.12 hours Ammonia level was normal (2) Acute alteration in mental status: Code(s): R41.82 - Altered mental status, unspecified Status: Acute Assessment and Plan: Encephalopathy appears to be multifactorial. Postictal, sepsis, and then patient received benzodiazepine. Encephalopathy is slowly improving but patient still is not at baseline Continue to hold all sedatives if possible Neurochecks Off Precedex at this point (3) Acute respiratory failure: Code(s): J96.00 - Acute respiratory failure, unspecified whether with hypoxia or hypercapnia Status: Acute Assessment and Plan: Presentation patient was found to be hypercarbic and respiratory acidosis Chest x-ray was clear Likely secondary to encephalopathy Now resolved and patient is on room air (4) Sepsis: Code(s): A41.9 - Sepsis, unspecified organism Status: Acute Assessment and Plan: Patient does met criteria of sepsis as she has UTI Lactic acidosis could also be secondary to seizures Lactate level is clear with IV fluids She never required any vasopressors and in fact now she is hypertensive Cultures have been sent and negative will now Will complete a course of Rocephin for UTI (5) UTI (urinary tract infection): Qualifiers: Hematuria presence: without hematuria Urinary tract infection type: site unspecified Qualified Code(s): N39.0 - Urinary tract infection, site not specified Code(s): N39.0 - Urinary tract infection, site not specified Status: Acute Assessment and Plan: See above (6) Acute dehydration: Code(s): E86.0 - Dehydration Status: Acute Assessment and Plan: Improved with IV fluids (7) Diabetes mellitus: Code(s): E11.9 - Type 2 diabetes mellitus without complications Status: Acute Assessment and Plan: Uncontrolled Increase Lantus Continue sliding scale (8) Hypertension: Code(s): I10 - Essential (primary) hypertension Status: Acute Assessment and Plan: P.r.n. labetalol (9) Hypothyroidism: Code(s): E03.9 - Hypothyroidism, unspecified Status: Acute Assessment and Plan: Does have history of hypothyroidism. Free T4 level is normal and T3 level is pending Continue levothyroxine Additional Plan DVT prophylaxis -Lovenox Nutrition -patient had a speech evaluation done and showed no issues. Will advance diet as tolerated Code Status - Full Code Consult physical therapy and occupational therapy. Incentive spirometer, up in chair May be able to transfer out of ICU today Subjective Date/time seen: 09/24/20 0745 Patient was started on Precedex infusion yesterday for agitation and uncooperativeness as she was trying to get out of bed and had risk of fall. Precedex was weaned off early this morning. Patient this morning is jose
[2020-09-24 09:59] LABS: Glucose Point of Care 212 (65-105)
--- NOTE | 2020-09-24 10:12 | WPDNEURCNPN ---
Assessment and Plan Assessment and plan (1) Seizure: Code(s): R56.9 - Unspecified convulsions Status: Acute Additional Plan continue the treatment as Consult date: 09/24/20 Time Seen: 10:00 HPI: Dariana Duncan is a 64 year old female admitted to the hospital with history of having had a seizure at home in addition to the history of abnormal CT scan from the previous cerebrovascular accident and documented abnormal MRI with moderate sized left frontal lobe infarct Review of Systems Review of Systems: All systems reviewed & are unremarkable except as noted in HPI and below PMFSH Social History Social History Smoking status: Current every day smoker Additional smoking assessment comments: does not tobacco, smokes marijuana Alcohol intake: current Drinks per week: 1 Substance use: current Substance use type: marijuana Other substance usage details: medical marijuana-chronic pain Spiritual care concerns: No Meds Home Medications and Allergies Home Medications Medication Instructions Recorded Confirmed Type atorvastatin 20 mg PO DAILY 09/21/20 09/21/20 History gabapentin 300 mg PO BID 09/21/20 09/21/20 History insulin glargine [Lantus Solostar 20 unit SUBCUT HS 09/21/20 09/21/20 History U-100 Insulin] insulin lispro [Humalog U-100 10 unit SUBCUT AC 09/21/20 09/21/20 History Insulin] levothyroxine 175 mcg PO DAILY 09/21/20 09/21/20 History mirabegron [Myrbetriq] 50 mg PO DAILY 09/21/20 09/21/20 History nadolol 60 mg PO DAILY 09/21/20 09/21/20 History oxycodone-acetaminophen 1 tablet PO BID 09/21/20 09/21/20 History Allergies Allergy/AdvReac Type Severity Reaction Status Date / Time Unable to Assess Allergy Verified 09/20/20 23:09 Vital Signs Vital Signs - 24 hr 09/23/20 11:49 09/23/20 12:00 09/23/20 13:15 Temperature 36.8 C Pulse Rate 89 86 69 Respiratory Rate 22 H 21 H 20 Blood Pressure 180/82 H Pulse Oximetry 96 09/23/20 14:00 09/23/20 14:33 09/23/20 15:30 Temperature Pulse Rate 68 69 Respiratory Rate 19 19 19 Blood Pressure 104/57 L Pulse Oximetry 97 09/23/20 16:00 09/23/20 17:09 09/23/20 18:00 Temperature 36.4 C L Pulse Rate 63 65 65 Respiratory Rate 20 20 21 H Blood Pressure 133/60 134/65 Pulse Oximetry 98 97 09/23/20 20:00 09/23/20 22:00 09/24/20 00:00 Temperature 36.6 C 36.7 C Pulse Rate 61 66 64 Respiratory Rate 20 22 H 20 Blood Pressure 132/63 136/70 140/85 Pulse Oximetry 97 98 96 09/24/20 02:00 09/24/20 02:03 09/24/20 04:00 Temperature 36.7 C Pulse Rate 65 65 62 Respiratory Rate 20 20 Blood Pressure 157/65 H 161/65 H Pulse Oximetry 97 95 09/24/20 05:28 09/24/20 06:00 09/24/20 08:00 Temperature 36.5 C Pulse Rate 61 56 L 61 Respiratory Rate 25 H 18 18 Blood Pressure 126/54 L 156/56 H Pulse Oximetry 92 95 09/24/20 10:00 Temperature Pulse Rate 71 Respiratory Rate 16 Blood Pressure 178/71 H Pulse Oximetry 99 Exam Const: General: cooperative, comfortable and no acute distress Nutritional Appearance: average body habitus Orientation/consciousness: oriented to person Limitations: behavioral limitations, language barrier and physical limitations Eyes: General: appearance normal, both eyes and all related structures Alignment and Position: alignment normal Periorbital: periorbital findings normal Eyelids: eyelids normal Conjunctivae: conjunctivae normal Sclera: sclerae normal Cornea: corneas normal Pupils: Equal, round and reactive pupils present Chest: Chest palpation & inspection: normal inspection of the chest Neuro: General: oriented to person, moves all extremities and Unable to assess gait Cranial nerves: Yes Equal, round and reactive pupils present, Yes Bilaterally intact EOM present, Yes Nystagmus not present, Yes Normal facial strength present, Yes Midline tongue present, Yes Ability to bilaterally rotate head present a
[2020-09-24] MEDS: LABETALOL HCL INJ 100 MG/20 ML VIAL 20 MG IV PUSH ×2 (10:35→20:02)
[2020-09-24 11:40] LABS: Glucose Point of Care 218 (65-105)
[2020-09-24] MEDS: hydrALAZINE HCL 20 MG/ML VIAL IV PUSH (12:35)
--- NOTE | 2020-09-24 14:03 | PM.IMPN ---
Progress Note: A&P Assessment and Plan (1) Seizure: Code(s): R56.9 - Unspecified convulsions Status: Acute Assessment and Plan: Admitted status epilepticus SP EEG and MRI brain and CT HEad Pt seen by ICU MD and NEUROLOGY MD see recommendations (2) Acute alteration in mental status: Code(s): R41.82 - Altered mental status, unspecified Status: Acute Assessment and Plan: acute encephalopathy: sepsis vs seizure. CT head with old left frontoparietal infarct. neuro consulted.hx of left frontal stroke, Npo with neurochecks presently and iv keppra (3) Acute dehydration: Code(s): E86.0 - Dehydration Status: Resolved Assessment and Plan: Creat improved pt being treated with iv fluids (4) UTI (urinary tract infection): Qualifiers: Hematuria presence: without hematuria Urinary tract infection type: site unspecified Qualified Code(s): N39.0 - Urinary tract infection, site not specified Code(s): N39.0 - Urinary tract infection, site not specified Status: Acute Assessment and Plan: # UTI: ceftriaxone. follow cultures (5) Sepsis: Code(s): A41.9 - Sepsis, unspecified organism Status: Acute Assessment and Plan: Currently on iv rocephin (6) Diabetes mellitus: Code(s): E11.9 - Type 2 diabetes mellitus without complications Status: Acute Assessment and Plan: Accuchecks, SSI (7) Hypertension: Code(s): I10 - Essential (primary) hypertension Status: Acute Assessment and Plan: BP is being monitored (8) Hypothyroidism: Code(s): E03.9 - Hypothyroidism, unspecified Status: Acute Assessment and Plan: Pt is on iv levothyroxine (9) Marijuana use: Code(s): F12.90 - Cannabis use, unspecified, uncomplicated Status: Chronic Assessment and Plan: CHronic use Subjective Date/time seen: 09/24/20 14:03 Interval history: 62-year-old female presents the emergency department with EMS unresponsiveness and posturing. Admitted in status epilepticus. Pt currently in icu, seen by ICU MD AND neurology MD. PT had EEG and BRAIN MRI and CT head so far. Review of Systems Review of Systems: All systems reviewed & are unremarkable except as noted in HPI and below Exam Narrative: Exam Narrative: GENERAL: very confused post ictal some improvement in movement and conversation HEAD: Normocephalic NECK: Supple. CHEST: Clear to auscultation. No respiratory distress. On 2 L nasal cannula HEART: Regular rate and rhythm. Normal peripheral pulses. ABDOMEN: Soft, nontender, nondistended, normal active bowel sounds. SKIN: Warm, dry, no rash. NEURO:Very confused postictal Objective Data Vital Signs Vital Signs: Vital Signs - 24 hr 09/23/20 14:33 09/23/20 15:30 09/23/20 16:00 Temperature 36.4 C L Pulse Rate 69 63 Respiratory Rate 19 19 20 Blood Pressure 133/60 Pulse Oximetry 98 09/23/20 17:09 09/23/20 18:00 09/23/20 20:00 Temperature 36.6 C Pulse Rate 65 65 61 Respiratory Rate 20 21 H 20 Blood Pressure 134/65 132/63 Pulse Oximetry 97 97 09/23/20 22:00 09/24/20 00:00 09/24/20 02:00 Temperature 36.7 C Pulse Rate 66 64 65 Respiratory Rate 22 H 20 20 Blood Pressure 136/70 140/85 157/65 H Pulse Oximetry 98 96 97 09/24/20 02:03 09/24/20 04:00 09/24/20 05:28 Temperature 36.7 C Pulse Rate 65 62 61 Respiratory Rate 20 25 H Blood Pressure 161/65 H Pulse Oximetry 95 09/24/20 06:00 09/24/20 08:00 09/24/20 10:00 Temperature 36.5 C Pulse Rate 56 L 61 71 Respiratory Rate 18 18 16 Blood Pressure 126/54 L 156/56 H 178/71 H Pulse Oximetry 92 95 99 09/24/20 10:35 09/24/20 12:00 Temperature 37.0 C Pulse Rate 68 72 Respiratory Rate 18 Blood Pressure 180/75 H Pulse Oximetry 99 Intake/Output Intake/Output: Intake & Output 09/21/20 09/22/20 09/23/20 09/24/20 23:59 23:59 23:59 23:59 Intake Total 2200 22
[2020-09-24 15:29] LABS: Glucose Point of Care 179 (65-105)
[2020-09-24] MEDS: LORazepam INJ (*CRX) 2 MG/ML VIAL 0.5 MG IV PUSH (16:30)
[2020-09-24] MEDS: levETIRAcetam IV 750 MG in DEXTROSE 5% 100 ML 430 MG IVPB (20:10)
[2020-09-24 20:35] LABS: Glucose Point of Care 146 (65-105)
[2020-09-24 23:46] LABS: Glucose Point of Care 165 (65-105)
[2020-09-25] VITALS (16 sets, daily range): BP systolic 131–165; BP diastolic 44–78; PULSE 69–101; RESP 12–22; TEMP 36.7–37.1; O2SAT 95–97
[2020-09-25] MEDS: SODIUM CHLORIDE 0.9% IV 1,000 ML 50 ML IV CONT ×2 (01:30→17:53)
[2020-09-25 03:52] LABS: Glucose Point of Care 196 (65-105)
[2020-09-25] MEDS: LABETALOL HCL INJ 100 MG/20 ML VIAL 20 MG IV PUSH (04:04)
[2020-09-25 04:16] LABS: Hematocrit 43.1 % (37.0-47.0); Mean Corpuscular HGB Conc 30.2 g/dl (32-36); Mean Corpuscular Hemoglobin 21.2 pg (26-34); Mean Corpuscular Volume 70.3 fl (80-100); Platelet Count Result 249 k/mm3 (150-375); Red Blood Count 6.13 M/mm3 (4.2-5.4); Red Cell Distribution Width 19.3 % (11.5-14.5)
[2020-09-25 04:28] LABS: Alanine Aminotransferase 17 U/L (4-35); Albumin Level 3.7 g/dL (3.5-5.1); Alkaline Phosphatase 68 U/L (38-126); Anion Gap 6 mmol/L (8-16); Aspartate Amino Transferase 28 U/L (14-36); Bilirubin,Total 0.8 mg/dL (0.2-1.3); Blood Urea Nitrogen 8 mg/dL (7-17); Calcium 8.4 mg/dL (8.4-10.2); Carbon Dioxide 30 mmol/L (22-30); Chloride 102 mmol/L (98-107); Estimated CRCL calculation 62 ml/min; Estimated Glomerular Filt Rate > 60; Glucose 209 mg/dL (65-105); Magnesium 1.9 mg/dL (1.6-2.3); Potassium 3.3 mmol/L (3.4-5.0); Sodium 138 mmol/L (137-145)
[2020-09-25] MEDS: LEVOTHYROXINE SODIUM INJ 100 MCG/5 ML VIAL 87.5 MCG IV PUSH (06:16)
[2020-09-25] MEDS: INSULIN GLARGINE (*BKC) 100 UNITS/ML 20 UNITS SUB-Q (08:00)
[2020-09-25] MEDS: INSULIN ASPART (*BKC) 100 UNITS/ML SUB-Q ×2 (08:00→12:18)
[2020-09-25] MEDS: levETIRAcetam IV 750 MG in DEXTROSE 5% 100 ML 430 MG IVPB ×2 (08:00→20:49)
[2020-09-25] MEDS: ENOXAPARIN 40 MG/0.4 ML SYRINGE SUB-Q (08:01)
[2020-09-25] MEDS: ASPIRIN 300 MG SUPPOSITORY RECTAL (08:01)
[2020-09-25 08:07] LABS: Glucose Point of Care 240 (65-105)
[2020-09-25] MEDS: HALOPERIDOL LACTATE 5 MG/ML VIAL IM (10:06)
--- NOTE | 2020-09-25 10:29 | PM.IMPN ---
Progress Note: A&P Assessment and Plan (1) Seizure: Code(s): R56.9 - Unspecified convulsions Status: Acute Assessment and Plan: Admitted status epilepticus SP EEG and MRI brain and CT HEad Status post IV Ativan Keppra neurology recommendation appreciated continue Keppra for now (2) Acute alteration in mental status: Code(s): R41.82 - Altered mental status, unspecified Status: Acute Assessment and Plan: acute encephalopathy: Probably related to UTI and seizure continue Keppra (3) Acute dehydration: Code(s): E86.0 - Dehydration Status: Resolved Assessment and Plan: Creat improved pt being treated with iv fluids (4) UTI (urinary tract infection): Qualifiers: Hematuria presence: without hematuria Urinary tract infection type: site unspecified Qualified Code(s): N39.0 - Urinary tract infection, site not specified Code(s): N39.0 - Urinary tract infection, site not specified Status: Acute Assessment and Plan: # UTI: ceftriaxone. follow cultures (5) Sepsis: Code(s): A41.9 - Sepsis, unspecified organism Status: Acute Assessment and Plan: Secondary to UTI treated with antibiotics (6) Diabetes mellitus: Code(s): E11.9 - Type 2 diabetes mellitus without complications Status: Acute Assessment and Plan: Associated with Nephro-Pasha insulin sliding scale (7) Hypertension: Code(s): I10 - Essential (primary) hypertension Status: Acute Assessment and Plan: Continue home med (8) Hypothyroidism: Code(s): E03.9 - Hypothyroidism, unspecified Status: Acute Assessment and Plan: Pt is on levothyroxine (9) Marijuana use: Code(s): F12.90 - Cannabis use, unspecified, uncomplicated Status: Chronic Assessment and Plan: CHronic use counseling once medical condition improved Additional Plan Acute on top of chronic hypercapnic respiratory failure continue current treatment Subjective Date/time seen: 09/25/20 10:29 Interval history: 62-year-old female presents the emergency department with EMS unresponsiveness and posturing. Admitted in status epilepticus. Pt currently in icu, seen by ICU MD AND neurology MD. PT had EEG and BRAIN MRI and CT head showed old frontal infarct patient is poor historian also patient was found to have UTI treated with antibiotics. Review of Systems Review of Systems: All systems reviewed & are unremarkable except as noted in HPI and below ROS unobtainable: Yes unobtainable due to medical condition and unobtainable due to mental status Exam Narrative: Exam Narrative: Alert but intermittent confusion Chest no wheeze crackles Abdomen nontender nondistended CVS S1 + S2 Lower extremity negative edema Objective Data Vital Signs Vital Signs: Vital Signs - 24 hr 09/24/20 10:35 09/24/20 12:00 09/24/20 14:00 Temperature 98.6 F Pulse Rate 68 72 91 Respiratory Rate 18 16 Blood Pressure 180/75 H 151/88 H Pulse Oximetry 99 98 09/24/20 16:00 09/24/20 18:00 09/24/20 20:00 Temperature 98.8 F 98.3 F Pulse Rate 93 93 84 Respiratory Rate 22 H 21 H Blood Pressure 170/75 H 165/83 H Pulse Oximetry 96 96 09/24/20 20:02 09/24/20 20:30 09/24/20 22:00 Temperature Pulse Rate 88 85 Respiratory Rate Blood Pressure 144/81 H Pulse Oximetry 09/25/20 00:00 09/25/20 01:00 09/25/20 01:30 Temperature 98.1 F Pulse Rate 69 Respiratory Rate 19 Blood Pressure 155/51 H 138/44 L 134/52 L Pulse Oximetry 97 09/25/20 02:00 09/25/20 04:00 09/25/20 04:04 Temperature 98.4 F Pulse Rate 84 88 71 Respiratory Rate 18 Blood Pressure 165/78 H Pulse Oximetry 97 09/25/20 06:00 09/25/20 08:00 09/25/20 10:00 Temperature 98.7 F Pulse Rate 83 79 101 H Respiratory Rate 12 Blood Pressure 136/68 131/58 L Pulse Oximetry 97 Intake/Output Intake/Output: Intake & Output 09/22/20
[2020-09-25] MEDS: LORazepam INJ (*CRX) 2 MG/ML VIAL 1 MG IV PUSH (10:55)
[2020-09-25 10:58] LABS: Alveolar/Arterial O2 Gradient 24.6 mmHg; Base Excess ABG 2.8 mEq/l (+/-2.0); Device ROOM AIR; Fractional Inspired Oxygen 21 %; HCO3 ABG 25.8 mEq/l (22.0-26.0); Modified Allen's Test Pass; Oxygen Content ABG 19.1 %vol (16.0-22.0); Oxygen Saturation ABG 96.9 % (95.0-100.0); Oxyhemoglobin 95.6 % THb (90.0-100.0); PO2 ABG 83.2 mmHg (80.0-100.0); PO2 FiO2 Ratio Arterial Blood 3.96 %; Site Drawn RIGHT RADIAL; Total Hemoglobin 14.2 g/dL (12.0-18.0); pH ABG 7.486 (7.350-7.450)
[2020-09-25 11:01] LABS: Ammonia < 9 umol/L (9-30)
--- NOTE | 2020-09-25 12:01 | WPDNEUROPN ---
Progress Note: A&P Assessment and Plan (1) Hypertension: Code(s): I10 - Essential (primary) hypertension Status: Acute (2) Seizure: Code(s): R56.9 - Unspecified convulsions Status: Acute Additional Plan is status post CVA of the left frontal lobe with will benefit from the repeat EEG or increase in the anticonvulsant if the behavior does not improve we might use mild antipsychotic medications as Review of Systems Review of Systems: All systems reviewed & are unremarkable except as noted in HPI and below Exam Const: General: no acute distress Nutritional Appearance: well nourished Limitations: behavioral limitations, language barrier and physical limitations Eyes: General: appearance normal, both eyes and all related structures Neck: Neck: full ROM Resp: Effort & Inspection: normal respiratory effort Neuro: General: moves all extremities, no meningeal signs, confusion and Unable to assess gait Cognition (Neuro): abnormal cognition Speech: Abnormal speech present Gait exam (Neuro): Unable to assess gait Plantar Reflex Responses: upgoing (positive Babinski): bilateral Objective Data Vital Signs Vital Signs: Vital Signs - 24 hr 09/24/20 14:00 09/24/20 16:00 09/24/20 18:00 Temperature 37.1 C Pulse Rate 91 93 93 Respiratory Rate 16 22 H Blood Pressure 151/88 H 170/75 H Pulse Oximetry 98 96 09/24/20 20:00 09/24/20 20:02 09/24/20 20:30 Temperature 36.8 C Pulse Rate 84 88 Respiratory Rate 21 H Blood Pressure 165/83 H 144/81 H Pulse Oximetry 96 09/24/20 22:00 09/25/20 00:00 09/25/20 01:00 Temperature 36.7 C Pulse Rate 85 69 Respiratory Rate 19 Blood Pressure 155/51 H 138/44 L Pulse Oximetry 97 09/25/20 01:30 09/25/20 02:00 09/25/20 04:00 Temperature 36.9 C Pulse Rate 84 88 Respiratory Rate 18 Blood Pressure 134/52 L 165/78 H Pulse Oximetry 97 09/25/20 04:04 09/25/20 06:00 09/25/20 08:00 Temperature 37.1 C Pulse Rate 71 83 79 Respiratory Rate 12 Blood Pressure 136/68 131/58 L Pulse Oximetry 97 09/25/20 10:00 Temperature Pulse Rate 101 H Respiratory Rate Blood Pressure Pulse Oximetry Intake/Output Intake/Output: Intake & Output 09/22/20 09/23/20 09/24/20 09/25/20 23:59 23:59 23:59 23:59 Intake Total 2219.5 2765.0 1965.0 470.5 Output Total 3425 1550 2675 950 Balance -1205.5 1215.0 -710.0 -479.5 Meds/Results Medications: Active Medications Generic Name Dose Route Start Last Admin Trade Name Freq PRN Reason Stop Dose Admin Aspirin 300 mg 09/21/20 09:00 09/25/20 08:01 Aspirin 300 Mg Suppository RECTAL 300 mg DAILY NATALIIA Administration Dextrose 12.5 gm 09/21/20 05:03 Dextrose 50% 25 Gm/50 Ml Syringe IV PUSH PRN PRN Hypoglycemia Protocol Enoxaparin Sodium 40 mg 09/21/20 09:00 09/25/20 08:01 Enoxaparin 40 Mg/0.4 Ml Syringe SUB-Q 40 mg DAILY NATALIIA Administration Glucagon 1 mg 09/21/20 05:03 Glucagon For Inj 1 Mg Vial IM PRN PRN Hypoglycemia Protocol Glucose 15 gm 09/21/20 05:03 Glucose Oral Gel 15 Gm Of Glucse In 37.5 Gm Tube PO PRN PRN Hypoglycemia Protocol Hydralazine HCl 20 mg 09/22/20 07:44 09/24/20 12:35 Hydralazine Hcl 20 Mg/Ml Vial IV PUSH 20 mg Q4H PRN Administration SBP > 160 Sodium Chloride 1,000 mls @ 50 mls/hr 09/21/20 03:10 09/25/20 06:18 Normal Saline Iv IV CONT 50 mls/hr .Q20H NATALIIA Infusion Ceftriaxone Sodium/Dextrose 1 gm in 50 mls @ 100 mls/hr 09/22/20 02:00 09/25/20 02:03 Rocephin 1 Gm/D5w 50 Ml IVPB Infused Q24H NATALIIA Infusion Dextrose 1,000 mls @ 100 mls/hr 09/21/20 05:03 Dextrose 5% 1,000 Ml IVPB PRN PRN Hypoglycemia Protocol Levetiracetam 750 mg/ Dextrose 107.5 mls @ 430 mls/hr 09/22/20 21:00 09/25/20 08:45 IVPB Infused Q12HR NATALIIA Infusion Insulin Aspart 4 - 8 units 09/22/20 08:00 09/25/20 08:00 Insulin Aspart (*Bk) 100 U
[2020-09-25 12:09] LABS: Glucose Point of Care 230 (65-105)
--- NOTE | 2020-09-25 12:10 | PCOTNOTE ---
Per RN, patient received Ativan, unable to be roused. Per RN hold today for therapy. Will continue plan of care tomorrow, 09/26/20.
--- NOTE | 2020-09-25 12:37 | PCPTNOTE ---
The PT treatment was unable to be completed today. Per RN, patient received Ativan, unable to be roused. Per RN hold today for therapy. Will continue per Plan of Care frequency and duration.
[2020-09-25 15:50] LABS: Glucose Point of Care 165 (65-105)
[2020-09-25] MEDS: LORazepam INJ (*CRX) 2 MG/ML VIAL 0.5 MG IV PUSH (16:45)
--- NOTE | 2020-09-25 18:10 | PC.NURSE ---
Sent patients three sidney or cubic ziconia earrings home with son, Jose. The patient is confused and the earrings were in a bag on the front of the chart. Jose opted to take them home so they do not go missing.
--- NOTE | 2020-09-25 18:14 | PC.NURSE ---
Patient transferred to [facility] via bed with medications and chart handed to medical secretary receptionist at 1810
--- NOTE | 2020-09-25 18:15 | PC.NURSE ---
This patient, Dariana Duncan, was received from ICU-5 on 09/25/20 at 1805. Patient/family oriented to unit policies and routines. Report received from KB Reed.
[2020-09-26] VITALS (16 sets, daily range): BP systolic 128–173; BP diastolic 59–77; PULSE 76–123; RESP 18–20; TEMP 36.1–36.5; O2SAT 95–100
--- NOTE | 2020-09-26 01:47 | PC.NURSE ---
Pt has been combative unable to get blood pressure currently sleeping
[2020-09-26 05:28] LABS: Hematocrit 40.1 % (37.0-47.0); Hemoglobin 11.9 g/dL (12.0-15.0); Immature Platelet Fraction Pct 7.4 % (0.9-11.2); Mean Corpuscular HGB Conc 29.7 g/dl (32-36); Mean Corpuscular Hemoglobin 21.6 pg (26-34); Mean Corpuscular Volume 72.6 fl (80-100); Platelet Count Result 210 k/mm3 (150-375); Red Blood Count 5.52 M/mm3 (4.2-5.4); Red Cell Distribution Width 19.4 % (11.5-14.5); White Blood Count 6.3 K/mm3 (4.5-10.0)
[2020-09-26 05:46] LABS: Alanine Aminotransferase 19 U/L (4-35); Albumin Level 3.4 g/dL (3.5-5.1); Alkaline Phosphatase 61 U/L (38-126); Anion Gap 7 mmol/L (8-16); Aspartate Amino Transferase 33 U/L (14-36); Bilirubin,Total 0.9 mg/dL (0.2-1.3); Blood Urea Nitrogen 11 mg/dL (7-17); Calcium 8.2 mg/dL (8.4-10.2); Carbon Dioxide 25 mmol/L (22-30); Chloride 102 mmol/L (98-107); Estimated CRCL calculation 71 ml/min; Estimated Glomerular Filt Rate > 60; Glucose 297 mg/dL (65-105); Magnesium 1.9 mg/dL (1.6-2.3); Potassium 3.3 mmol/L (3.4-5.0); Sodium 134 mmol/L (137-145)
[2020-09-26] MEDS: LEVOTHYROXINE SODIUM INJ 100 MCG/5 ML VIAL 87.5 MCG IV PUSH (05:49)
--- NOTE | 2020-09-26 07:25 | PCOTNOTE ---
Therapist checked with nursing prior to attempting to see Patient this session. Per yesterday Patient was being combative. Per Patients RN, Patient has not been assessed yet today, hold off until she wakes up and check back with nursing at a later time.
[2020-09-26] MEDS: INSULIN GLARGINE (*BKC) 100 UNITS/ML 20 UNITS SUB-Q (08:13)
[2020-09-26] MEDS: ENOXAPARIN 40 MG/0.4 ML SYRINGE SUB-Q (08:13)
[2020-09-26] MEDS: levETIRAcetam IV 750 MG in DEXTROSE 5% 100 ML 430 MG IVPB ×2 (08:14→20:00)
[2020-09-26 08:52] LABS: Glucose Point of Care 266 (65-105)
[2020-09-26] MEDS: hydrALAZINE HCL 20 MG/ML VIAL IV PUSH ×2 (09:25→17:29)
[2020-09-26] MEDS: INSULIN ASPART (*BKC) 100 UNITS/ML SUB-Q (09:25)
[2020-09-26 09:48] LABS: Glucose Point of Care 224 (65-105)
[2020-09-26] MEDS: LORazepam INJ (*CRX) 2 MG/ML VIAL 0.5 MG IV PUSH ×3 (11:01→19:59)
--- NOTE | 2020-09-26 11:37 | PM.IMPN ---
Progress Note: A&P Assessment and Plan (1) Seizure: Code(s): R56.9 - Unspecified convulsions Status: Acute Assessment and Plan: Admitted status epilepticus SP EEG and MRI brain and CT HEad Status post IV Ativan Keppra neurology recommendation appreciated continue Keppra for now Neurology following patient may need repeat EEG or adjustment of antiepileptic medication according to neurology recommendations (2) Acute alteration in mental status: Code(s): R41.82 - Altered mental status, unspecified Status: Acute Assessment and Plan: acute encephalopathy: Probably related to UTI and seizure continue Keppra (3) Acute dehydration: Code(s): E86.0 - Dehydration Status: Resolved Assessment and Plan: Creat improved pt being treated with iv fluids (4) UTI (urinary tract infection): Qualifiers: Hematuria presence: without hematuria Urinary tract infection type: site unspecified Qualified Code(s): N39.0 - Urinary tract infection, site not specified Code(s): N39.0 - Urinary tract infection, site not specified Status: Acute Assessment and Plan: # UTI: ceftriaxone. follow cultures plan to switch to oral antibiotics in a.m. (5) Sepsis: Code(s): A41.9 - Sepsis, unspecified organism Status: Acute Assessment and Plan: Secondary to UTI treated with antibiotics (6) Diabetes mellitus: Code(s): E11.9 - Type 2 diabetes mellitus without complications Status: Acute Assessment and Plan: Associated with Nephro-Pasha insulin sliding scale (7) Hypertension: Code(s): I10 - Essential (primary) hypertension Status: Acute Assessment and Plan: Continue home med (8) Hypothyroidism: Code(s): E03.9 - Hypothyroidism, unspecified Status: Acute Assessment and Plan: Pt is on levothyroxine (9) Marijuana use: Code(s): F12.90 - Cannabis use, unspecified, uncomplicated Status: Chronic Assessment and Plan: CHronic use counseling once medical condition improved Additional Plan Acute on top of chronic hypercapnic respiratory failure resolved most likely related to seizure and postictal sleep study as outpatient Subjective Date/time seen: 09/26/20 11:37 Interval history: 62-year-old female presents the emergency department with EMS unresponsiveness and posturing. Admitted in status epilepticus. Pt currently in icu, seen by ICU MD AND neurology MD. PT had EEG and BRAIN MRI and CT head showed old frontal infarct patient is poor historian also patient was found to have UTI treated with antibiotics. 09/26/2020 Patient was transferred to medical floor Patient still have episodes of combativeness and confusion resolved with IV Ativan I am seeing the patient for ams Exam Narrative: Exam Narrative: Alert but intermittent confusion Chest no wheeze crackles Abdomen nontender nondistended CVS S1 + S2 Lower extremity negative edema Objective Data Vital Signs Vital Signs: Vital Signs - 24 hr 09/25/20 12:00 09/25/20 13:54 09/25/20 16:00 Temperature 98.5 F 98.5 F Pulse Rate 80 79 94 Respiratory Rate 22 H 12 Blood Pressure 138/68 140/58 L Pulse Oximetry 96 95 09/25/20 18:15 09/25/20 20:00 09/25/20 21:12 Temperature Pulse Rate 100 78 Respiratory Rate Blood Pressure Pulse Oximetry 96 09/25/20 22:00 09/26/20 00:00 09/26/20 02:00 Temperature Pulse Rate 78 76 78 Respiratory Rate Blood Pressure Pulse Oximetry 09/26/20 04:00 09/26/20 04:57 09/26/20 06:00 Temperature 97.3 F L Pulse Rate 81 84 80 Respiratory Rate 18 Blood Pressure 151/70 H Pulse Oximetry 97 09/26/20 08:00 09/26/20 10:00 Temperature 97.3 F L Pulse Rate 99 120 H Respiratory Rate 20 Blood Pressure 173/68 H Pulse Oximetry 98 Intake/Output Intake/Output: Intake & Output 09/23/20 09/24/20 09/25/20 09/26/20 23:59 23:59 23:59 23:59 Int
[2020-09-26 12:55] LABS: Glucose Point of Care 313 (65-105)
[2020-09-26] MEDS: INSULIN ASPART (*BKC) 100 UNITS/ML 6 UNITS SUB-Q ×2 (13:09→17:29)
[2020-09-26] MEDS: POTASSIUM CHLORIDE 20 MEQ PACKET (FOR LIQUID) 40 MEQ PO (13:09)
[2020-09-26] MEDS: SODIUM CHLORIDE 0.9% IV 1,000 ML 50 ML IV CONT (13:10)
--- NOTE | 2020-09-26 14:37 | PCOTNOTE ---
Attempted to see patient this pm, however patient not appropriate at this time. Upon entering room, patient was confused and attempting to exit bed between rails. Three staff members were assisting with patient back to bed. Pt was repeating, I need to pee. I need to pee. Nursing staff continued to explain to patient she had a catheter. Upon exiting room, leaving patient with nursing staff, patient began yelling out, HELP ME! HELP ME!
--- NOTE | 2020-09-26 15:59 | PC.NURSE ---
Patient screaming out for her brother, Ronny, and son, Jose. Patient attempting to climb out of bed, and was not responsive to redirection. Patient extremely anxious, combative to patient sitter. Patient given Ativan .5 mg ivpush for agitation.
[2020-09-26 17:01] LABS: Glucose Point of Care 266 (65-105)
[2020-09-26] MEDS: ONDANSETRON INJ 4 MG/2 ML VIAL IV PUSH (20:00)
[2020-09-26] MEDS: QUEtiapine FUMARATE 25 MG TABLET 50 MG PO (20:01)
[2020-09-26 20:03] LABS: Glucose Point of Care 260 (65-105)
[2020-09-26 23:21] LABS: Triiodothyronine T3 Free 1.5 pg/mL (2.3-4.2)
[2020-09-27] VITALS (13 sets, daily range): BP systolic 123–143; BP diastolic 58–65; PULSE 85–116; RESP 14–24; TEMP 36.1–36.7; O2SAT 96–100; BMI 23.8
[2020-09-27] MEDS: LORazepam INJ (*CRX) 2 MG/ML VIAL 0.5 MG IV PUSH ×2 (01:49→20:23)
[2020-09-27 04:58] LABS: Hematocrit 39.2 % (37.0-47.0); Hemoglobin 11.8 g/dL (12.0-15.0); Mean Corpuscular HGB Conc 30.1 g/dl (32-36); Mean Corpuscular Hemoglobin 21.3 pg (26-34); Mean Corpuscular Volume 70.6 fl (80-100); Mean Platelet Volume 10.6 fl (7.4-10.4); Platelet Count Result 197 k/mm3 (150-375); Red Blood Count 5.55 M/mm3 (4.2-5.4); Red Cell Distribution Width 19.7 % (11.5-14.5); White Blood Count 6.7 K/mm3 (4.5-10.0)
[2020-09-27 05:12] LABS: Potassium 3.7 mmol/L (3.4-5.0)
[2020-09-27 05:15] LABS: Alanine Aminotransferase 23 U/L (4-35); Albumin Level 3.3 g/dL (3.5-5.1); Alkaline Phosphatase 64 U/L (38-126); Anion Gap 4 mmol/L (8-16); Aspartate Amino Transferase 34 U/L (14-36); Bilirubin,Total 0.8 mg/dL (0.2-1.3); Blood Urea Nitrogen 12 mg/dL (7-17); Calcium 8.4 mg/dL (8.4-10.2); Carbon Dioxide 29 mmol/L (22-30); Chloride 102 mmol/L (98-107); Estimated CRCL calculation 62 ml/min; Estimated Glomerular Filt Rate > 60; Glucose 374 mg/dL (65-105); Magnesium 1.9 mg/dL (1.6-2.3); Sodium 135 mmol/L (137-145)
[2020-09-27] MEDS: LEVOTHYROXINE SODIUM INJ 100 MCG/5 ML VIAL 87.5 MCG IV PUSH (05:55)
[2020-09-27] MEDS: SODIUM CHLORIDE 0.9% IV 1,000 ML 50 ML IV CONT (05:56)
[2020-09-27] MEDS: levETIRAcetam IV 750 MG in DEXTROSE 5% 100 ML 430 MG IVPB ×2 (08:05→20:22)
[2020-09-27] MEDS: ASPIRIN 81 MG ENTERIC TABLET PO (08:05)
[2020-09-27] MEDS: ENOXAPARIN 40 MG/0.4 ML SYRINGE SUB-Q (08:06)
[2020-09-27] MEDS: INSULIN ASPART (*BKC) 100 UNITS/ML 6 UNITS SUB-Q (08:08)
[2020-09-27] MEDS: INSULIN GLARGINE (*BKC) 100 UNITS/ML 25 UNITS SUB-Q (08:08)
[2020-09-27] MEDS: INSULIN ASPART (*BKC) 100 UNITS/ML 7 UNITS SUB-Q (08:11)
[2020-09-27] MEDS: INSULIN ASPART (*BKC) 100 UNITS/ML SUB-Q ×2 (08:34→16:16)
--- NOTE | 2020-09-27 10:38 | PC.NURSE ---
Family member Sandro called this nurse this morning. Update given, All questions answered verbalized by Sandro. Will continue to monitor.
--- NOTE | 2020-09-27 12:01 | PM.IMPN ---
Progress Note: A&P Assessment and Plan (1) Seizure: Code(s): R56.9 - Unspecified convulsions Status: Acute Assessment and Plan: Admitted status epilepticus SP EEG and MRI brain and CT HEad Status post IV Ativan Keppra neurology recommendation appreciated continue Keppra for now Neurology following patient may need repeat EEG or adjustment of antiepileptic medication according to neurology recommendations (2) Acute alteration in mental status: Code(s): R41.82 - Altered mental status, unspecified Status: Acute Assessment and Plan: acute encephalopathy: Probably related to UTI and seizure continue Keppra (3) Acute dehydration: Code(s): E86.0 - Dehydration Status: Resolved Assessment and Plan: Improved treated with IV fluid (4) UTI (urinary tract infection): Qualifiers: Hematuria presence: without hematuria Urinary tract infection type: site unspecified Qualified Code(s): N39.0 - Urinary tract infection, site not specified Code(s): N39.0 - Urinary tract infection, site not specified Status: Acute Assessment and Plan: UTI DC IV Rocephin start oral cefdinir for 4 more days. (5) Sepsis: Code(s): A41.9 - Sepsis, unspecified organism Status: Acute Assessment and Plan: Secondary to UTI treated with antibiotics (6) Diabetes mellitus: Code(s): E11.9 - Type 2 diabetes mellitus without complications Status: Acute Assessment and Plan: Associated with nephropathy insulin sliding scale Lantus adjusted insulin today (7) Hypertension: Code(s): I10 - Essential (primary) hypertension Status: Acute Assessment and Plan: Continue home med (8) Hypothyroidism: Code(s): E03.9 - Hypothyroidism, unspecified Status: Acute Assessment and Plan: Pt is on levothyroxine (9) Marijuana use: Code(s): F12.90 - Cannabis use, unspecified, uncomplicated Status: Chronic Assessment and Plan: CHronic use counseling once medical condition improved Additional Plan Acute on top of chronic hypercapnic respiratory failure resolved most likely related to seizure and postictal sleep study as outpatient Subjective Date/time seen: 09/27/20 12:01 Interval history: 62-year-old female presents the emergency department with EMS unresponsiveness and posturing. Admitted in status epilepticus. Pt currently in icu, seen by ICU MD AND neurology MD. PT had EEG and BRAIN MRI and CT head showed old frontal infarct patient is poor historian also patient was found to have UTI treated with antibiotics. 09/26/2020 Patient was transferred to medical floor Patient still have episodes of combativeness and confusion resolved with IV Ativan 09/27/2020 Hyperglycemia uncontrolled Patient still requires bedside setter Responding well to IV Ativan Improved after adding Seroquel DC the IV Rocephin started cefdinir I am seeing the patient for ams Exam Narrative: Exam Narrative: Alert but intermittent confusion Chest no wheeze crackles Abdomen nontender nondistended CVS S1 + S2 Lower extremity negative edema Objective Data Vital Signs Vital Signs: Vital Signs - 24 hr 09/26/20 14:00 09/26/20 16:00 09/26/20 18:00 Temperature 97.5 F L Pulse Rate 120 H 106 H 120 H Respiratory Rate 20 Blood Pressure 168/77 H Pulse Oximetry 99 09/26/20 19:41 09/26/20 20:00 09/26/20 22:00 Temperature 97.0 F L Pulse Rate 123 H 118 H 84 Respiratory Rate 18 Blood Pressure 160/73 H Pulse Oximetry 96 09/26/20 22:43 09/26/20 23:26 09/27/20 00:00 Temperature 97.7 F Pulse Rate 99 95 Respiratory Rate 20 Blood Pressure 128/59 L Pulse Oximetry 95 97 09/27/20 02:00 09/27/20 04:00 09/27/20 06:00 Temperature 98.0 F Pulse Rate 101 H 96 116 H Respiratory Rate 20 Blood Pressure 123/58 L Pulse Oximetry 96 09/27/20 08:00 09/27/20 10:00 Temperature 96.9 F L Pu
[2020-09-27] MEDS: INSULIN ASPART (*BKC) 100 UNITS/ML 9 UNITS SUB-Q ×3 (12:12→16:16)
--- NOTE | 2020-09-27 13:01 | PCOTNOTE ---
Attempted therapy session with patient, but patient was too sleepy and could not be roused to participate.
--- NOTE | 2020-09-27 14:37 | PCPTNOTE ---
Attempted to see patient for PT, unable to complete treatment due to patient being too sleepy and could not wake up enough to participate.
[2020-09-27 16:11] LABS: Glucose Point of Care 400 (65-105)
[2020-09-27 16:12] LABS: Glucose Point of Care 375 (65-105)
[2020-09-27 16:12] LABS: Glucose Point of Care 202 (65-105)
[2020-09-27] MEDS: QUEtiapine FUMARATE 25 MG TABLET 50 MG PO (20:22)
[2020-09-27] MEDS: CEFDINIR 300 MG CAPSULE PO (20:22)
[2020-09-27 21:22] LABS: Glucose Point of Care 265 (65-105)
[2020-09-28] VITALS (16 sets, daily range): BP systolic 125–153; BP diastolic 52–68; PULSE 83–94; RESP 14–18; TEMP 36.1–36.6; O2SAT 96–98
[2020-09-28] MEDS: LORazepam INJ (*CRX) 2 MG/ML VIAL 0.5 MG IV PUSH (04:59)
[2020-09-28] MEDS: SODIUM CHLORIDE 0.9% IV 1,000 ML 50 ML IV CONT (06:01)
[2020-09-28] MEDS: LEVOTHYROXINE SODIUM INJ 100 MCG/5 ML VIAL 87.5 MCG IV PUSH (06:02)
--- NOTE | 2020-09-28 07:08 | PC.NURSE ---
At 0459 this a.m., patients bed alarms went off, this nurse went to assess the situation along with a CCT to find the patient trying to climb out of bed. This nurse went and asked the patient where she was trying to go. The patient stated I am going to take a bath . A bed bath was offered without resolution. Patient became more agitated and angry. The patient insisted that we have a bath available for her to sit down in. I informed the patient that we do not have bathtubs on this unit. The patient said you are a liar , then proceeded to push this nurse. Another RN, and charged was called to call a code purple as the situation was not resolving without de-escalating attempts.
--- NOTE | 2020-09-28 07:14 | PCOTNOTE ---
Due to impaired cognition and decreased ability to follow one step commands, changed frequency for occupational therapy from 5-7x/week to 2-3x/week. will follow.
[2020-09-28] MEDS: levETIRAcetam IV 750 MG in DEXTROSE 5% 100 ML 430 MG IVPB (09:07)
[2020-09-28 09:14] LABS: Glucose Point of Care 348 (65-105)
[2020-09-28] MEDS: CEFDINIR 300 MG CAPSULE PO ×2 (09:23→20:49)
[2020-09-28] MEDS: INSULIN GLARGINE (*BKC) 100 UNITS/ML 32 UNITS SUB-Q (09:23)
[2020-09-28] MEDS: ENOXAPARIN 40 MG/0.4 ML SYRINGE SUB-Q (09:23)
[2020-09-28] MEDS: ASPIRIN 81 MG ENTERIC TABLET PO (09:23)
[2020-09-28] MEDS: INSULIN ASPART (*BKC) 100 UNITS/ML 9 UNITS SUB-Q ×2 (09:24→17:38)
[2020-09-28 11:56] LABS: Glucose Point of Care 299 (65-105)
--- NOTE | 2020-09-28 13:01 | PCOTNOTE ---
Attempted to see patient for skilled OT session this date, upon entry into room 08/12 sitter/sit-in [employer]OOKK[employer]PER present and stated patient had rough night and is very fatigued and drowsy today. HIRSCH attempted to arouse and have patient participate in session, but patient was unable to be aroused at this time keeping eyes shut with minimal vocalization. Skilled OT session not completed this date due to patient's inability to participate. Will continue per Plan of Care.
--- NOTE | 2020-09-28 16:02 | PM.IMPN ---
Progress Note: A&P Assessment and Plan (1) Seizure: Code(s): R56.9 - Unspecified convulsions Status: Acute Assessment and Plan: Admitted status epilepticus SP EEG and MRI brain and CT HEad Status post IV Ativan Keppra neurology recommendation appreciated continue Keppra for now Neurology following patient may need repeat EEG or adjustment of antiepileptic medication according to neurology recommendations Change to oral keppra from iv keppra (2) Acute alteration in mental status: Code(s): R41.82 - Altered mental status, unspecified Status: Acute Assessment and Plan: acute encephalopathy: Probably related to UTI and seizure continue Keppra (3) Acute dehydration: Code(s): E86.0 - Dehydration Status: Resolved Assessment and Plan: Improved treated with IV fluid (4) UTI (urinary tract infection): Qualifiers: Hematuria presence: without hematuria Urinary tract infection type: site unspecified Qualified Code(s): N39.0 - Urinary tract infection, site not specified Code(s): N39.0 - Urinary tract infection, site not specified Status: Acute Assessment and Plan: UTI DC IV Rocephin start oral cefdinir for 4 more days. (5) Sepsis: Code(s): A41.9 - Sepsis, unspecified organism Status: Acute Assessment and Plan: Secondary to UTI treated with antibiotics (6) Diabetes mellitus: Code(s): E11.9 - Type 2 diabetes mellitus without complications Status: Acute Assessment and Plan: Associated with nephropathy insulin sliding scale Lantus adjusted insulin today (7) Hypertension: Code(s): I10 - Essential (primary) hypertension Status: Acute Assessment and Plan: Continue home med (8) Hypothyroidism: Code(s): E03.9 - Hypothyroidism, unspecified Status: Acute Assessment and Plan: Pt is on levothyroxine (9) Marijuana use: Code(s): F12.90 - Cannabis use, unspecified, uncomplicated Status: Chronic Assessment and Plan: CHronic use counseling once medical condition improved Subjective Date/time seen: 09/28/20 16:02 Interval history: INTERVAL HISTORY : 62-year-old female presents the emergency department with EMS unresponsiveness and posturing. Admitted in status epilepticus. Pt currently in icu, seen by ICU MD AND neurology MD. PT had EEG and BRAIN MRI and CT head showed old frontal infarct patient is poor historian also patient was found to have UTI treated with antibiotics. Pt still remains confused and somnolent Review of Systems Review of Systems: All systems reviewed & are unremarkable except as noted in HPI and below Exam Narrative: Exam Narrative: Alert mild confusion like post ictal Chest clear Abdomen nontender nondistended CVS S1 + S2 Lower extremity negative edema Objective Data Vital Signs Vital Signs: Vital Signs - 24 hr 09/27/20 18:00 09/27/20 20:00 09/27/20 22:00 Temperature 36.4 C Pulse Rate 97 100 90 Respiratory Rate 18 Blood Pressure 135/59 L Pulse Oximetry 98 09/27/20 23:54 09/28/20 00:00 09/28/20 02:00 Temperature 36.6 C Pulse Rate 85 90 91 Respiratory Rate 18 Blood Pressure 137/62 Pulse Oximetry 98 09/28/20 03:53 09/28/20 04:00 09/28/20 06:00 Temperature 36.1 C L Pulse Rate 88 89 87 Respiratory Rate 14 Blood Pressure 125/56 L Pulse Oximetry 98 09/28/20 08:00 09/28/20 10:00 09/28/20 11:48 Temperature 36.3 C L 36.6 C Pulse Rate 84 94 87 Respiratory Rate 18 16 Blood Pressure 127/58 L 129/64 Pulse Oximetry 98 97 09/28/20 12:00 09/28/20 14:00 Temperature Pulse Rate 91 88 Respiratory Rate Blood Pressure Pulse Oximetry 98 Intake/Output Intake/Output: Intake & Output 09/25/20 09/26/20 09/27/20 09/28/20 23:59 23:59 23:59 23:59 Intake Total 1578.0 1915.0 3065.0 1240 Output Total 1300 1825 1550 Balance 278.0 90.0 1515.0 1240 Meds/Result
--- NOTE | 2020-09-28 16:08 | WPDNEUROPN ---
Progress Note: A&P Additional Plan gradual recovery from the status epilepticus but rather a persistent confusion with abnormal and treatment will be continued as Review of Systems Review of Systems: All systems reviewed & are unremarkable except as noted in HPI and below Exam Const: General: cooperative and well developed Nutritional Appearance: average body habitus Orientation/consciousness: oriented to person and oriented to place Eyes: General: appearance normal, both eyes and all related structures Alignment and Position: alignment normal Periorbital: periorbital findings normal Eyelids: eyelids normal Conjunctivae: conjunctivae normal Sclera: sclerae normal Cornea: corneas normal Pupils: Equal, round and reactive pupils present Neck: Neck: normal visual inspection and full ROM Resp: Effort & Inspection: normal respiratory effort Auscultation: clear to auscultation bilaterally Cardio: Rate: regular rate Rhythm: regular rhythm Neuro: General: oriented to person and CN's II-XI intact bilaterally Cranial nerves: Yes CN's II-XII intact bilaterally Cognition (Neuro): abnormal cognition Speech: Abnormal speech present Gait exam (Neuro): Unable to assess gait Sensory Exam: normal sensation Deep tendon reflexes (DTR's): Right triceps reflex intensity grade: 1+, Left triceps reflex intensity grade: 1+, Rt Biceps (C5, C6): 1+, Left biceps reflex intensity grade: 1+, Right brachioradialis reflex intensity grade: 1+, Left brachioradialis reflex intensity grade: 1+, Right patellar reflex intensity grade: 1+, Left patellar reflex intensity grade: 1+, Right ankle reflex intensity grade: 1+ and Left ankle reflex intensity grade: 1+ Plantar Reflex Responses: downgoing: bilateral Objective Data Vital Signs Vital Signs: Vital Signs - 24 hr 09/27/20 18:00 09/27/20 20:00 09/27/20 22:00 Temperature 36.4 C Pulse Rate 97 100 90 Respiratory Rate 18 Blood Pressure 135/59 L Pulse Oximetry 98 09/27/20 23:54 09/28/20 00:00 09/28/20 02:00 Temperature 36.6 C Pulse Rate 85 90 91 Respiratory Rate 18 Blood Pressure 137/62 Pulse Oximetry 98 09/28/20 03:53 09/28/20 04:00 09/28/20 06:00 Temperature 36.1 C L Pulse Rate 88 89 87 Respiratory Rate 14 Blood Pressure 125/56 L Pulse Oximetry 98 09/28/20 08:00 09/28/20 10:00 09/28/20 11:48 Temperature 36.3 C L 36.6 C Pulse Rate 84 94 87 Respiratory Rate 18 16 Blood Pressure 127/58 L 129/64 Pulse Oximetry 98 97 09/28/20 12:00 09/28/20 14:00 Temperature Pulse Rate 91 88 Respiratory Rate Blood Pressure Pulse Oximetry 98 Intake/Output Intake/Output: Intake & Output 09/25/20 09/26/20 09/27/20 09/28/20 23:59 23:59 23:59 23:59 Intake Total 1578.0 1915.0 3065.0 1240 Output Total 1300 1825 1550 Balance 278.0 90.0 1515.0 1240 Meds/Results Medications: Active Medications Generic Name Dose Route Start Last Admin Trade Name Freq PRN Reason Stop Dose Admin Aspirin 81 mg 09/27/20 09:00 09/28/20 09:23 Aspirin 81 Mg Enteric Tablet PO 81 mg QAM NATALIIA Administration Cefdinir 300 mg 09/27/20 21:00 09/28/20 09:23 Cefdinir 300 Mg Capsule PO 10/01/20 21:01 300 mg Q12HR NATALIIA Administration Dextrose 12.5 gm 09/21/20 05:03 Dextrose 50% 25 Gm/50 Ml Syringe IV PUSH PRN PRN Hypoglycemia Protocol Enoxaparin Sodium 40 mg 09/21/20 09:00 09/28/20 09:23 Enoxaparin 40 Mg/0.4 Ml Syringe SUB-Q 40 mg DAILY NATALIIA Administration Glucagon 1 mg 09/21/20 05:03 Glucagon For Inj 1 Mg Vial IM PRN PRN Hypoglycemia Protocol Glucose 15 gm 09/21/20 05:03 Glucose Oral Gel 15 Gm Of Glucse In 37.5 Gm Tube PO PRN PRN Hypoglycemia Protocol Hydralazine HCl 20 mg 09/22/20 07:44 09/26/20 17:29 Hydralazine Hcl 20 Mg/Ml Vial IV PUSH 20 mg Q4H PRN Administration SBP > 160 Sodium Chloride 1,000 mls @ 50 mls/hr 09/21/20 03:10 09/28/20 06:01 Normal Saline
--- NOTE | 2020-09-28 16:14 | P.NEURO_ITS ---
Neurology EEG Report DIAGNOSIS aphasia CONDITION OF RECORDING drowsy and sleep CLINICAL HISTORY patient had an episode of aphasia yesterday EEG DESCRIPTION basic resting occipital frequency consists poorly organized 8 to 9 hertz per 2nd alpha admixed with low-voltage 15 to 18 hertz per 2nd basic and low voltage 8 to 9 hertz per 2nd alpha over the right hemispheric linkages posterior low- voltage beta activity seen diffusely during drowsiness a symmetrical sleep activity seen during sleep as well with low to medium voltage 5 to 7 hertz per 2nd theta and 3 to 4 hertz per 2nd delta over the left hemispheric linking hyperventilation not done photic stimulation not done non paroxysmal. Focal. And lateralizing. IMPRESSION Abnormal record due to the presence of bihemispheric theta and delta activity which is more pronounced over the left hemispheric linkages in addition to the [place] general sharp waves these abnormalities are suggestive of focal structural lesion of the left side clinical correlation recommend
[2020-09-28 17:32] LABS: Glucose Point of Care 233 (65-105)
[2020-09-28] MEDS: INSULIN ASPART (*BKC) 100 UNITS/ML SUB-Q (17:38)
[2020-09-28 20:21] LABS: Glucose Point of Care 213 (65-105)
[2020-09-28] MEDS: QUEtiapine FUMARATE 25 MG TABLET 50 MG PO (20:49)
[2020-09-28] MEDS: levETIRAcetam Tablet 250 MG, levETIRAcetam Tablet 500 MG 750 MG PO (20:49)
[2020-09-29] VITALS (13 sets, daily range): BP systolic 133–169; BP diastolic 58–71; PULSE 70–100; RESP 17–20; TEMP 36.3–36.8; O2SAT 96–99
[2020-09-29] MEDS: LORazepam INJ (*CRX) 2 MG/ML VIAL 0.5 MG IV PUSH ×2 (00:43→20:41)
[2020-09-29] MEDS: SODIUM CHLORIDE 0.9% IV 1,000 ML 50 ML IV CONT (04:35)
[2020-09-29] MEDS: LEVOTHYROXINE SODIUM INJ 100 MCG/5 ML VIAL 87.5 MCG IV PUSH (05:33)
[2020-09-29 05:51] LABS: Basophils Percent Auto 0.7 % (0.2-1.2); Eosinophils Absolute Auto 0.3 K/mm3 (0-0.3); Eosinophils Percent Auto 5.1 % (0-4.4); Hematocrit 38.9 % (37.0-47.0); Hemoglobin 11.4 g/dL (12.0-15.0); Immature Granulocyte Absolute 0.03 K/mm3 (0.00-0.031); Immature Granulocyte Percent A 0.5 % (0-0.5); Lymphocytes Absolute Auto 1.48 K/mm3 (0.9-3.2); Lymphocytes Percent Auto 26.9 % (18.3-44.2); Mean Corpuscular HGB Conc 29.3 g/dl (32-36); Mean Corpuscular Hemoglobin 21.6 pg (26-34); Mean Corpuscular Volume 73.5 fl (80-100); Mean Platelet Volume 11.2 fl (7.4-10.4); Monocytes Absolute Auto 0.4 K/mm3 (0.1-0.6); Monocytes Percent Auto 6.5 % (2.6-8.5); Neutrophils Absolute Auto 3.3 K/mm3 (1.3-6.7); Neutrophils Percent Auto 60.3 % (45.5-73.1); Platelet Count Result 188 k/mm3 (150-375); Red Blood Count 5.29 M/mm3 (4.2-5.4); Red Cell Distribution Width 19.7 % (11.5-14.5); White Blood Count 5.5 K/mm3 (4.5-10.0)
[2020-09-29 06:08] LABS: Potassium 3.2 mmol/L (3.4-5.0)
[2020-09-29 06:22] LABS: Alanine Aminotransferase 26 U/L (4-35); Albumin Level 3.3 g/dL (3.5-5.1); Alkaline Phosphatase 57 U/L (38-126); Anion Gap 3 mmol/L (8-16); Aspartate Amino Transferase 37 U/L (14-36); Bilirubin,Total 0.6 mg/dL (0.2-1.3); Blood Urea Nitrogen 13 mg/dL (7-17); Calcium 8.7 mg/dL (8.4-10.2); Carbon Dioxide 32 mmol/L (22-30); Chloride 103 mmol/L (98-107); Estimated CRCL calculation 71 ml/min; Estimated Glomerular Filt Rate > 60; Glucose 97 mg/dL (65-105); Sodium 138 mmol/L (137-145)
[2020-09-29 06:55] LABS: Hypochromasia 2+ (NORMAL); Platelet Estimate Adequate (Adequate)
[2020-09-29 09:01] LABS: Glucose Point of Care 176 (65-105)
[2020-09-29] MEDS: ASPIRIN 81 MG ENTERIC TABLET PO (09:10)
[2020-09-29] MEDS: CEFDINIR 300 MG CAPSULE PO ×2 (09:11→21:27)
[2020-09-29] MEDS: levETIRAcetam Tablet 250 MG, levETIRAcetam Tablet 500 MG 750 MG PO ×2 (09:11→21:27)
[2020-09-29] MEDS: ENOXAPARIN 40 MG/0.4 ML SYRINGE SUB-Q (09:12)
[2020-09-29] MEDS: INSULIN ASPART (*BKC) 100 UNITS/ML 9 UNITS SUB-Q ×2 (09:17→13:21)
[2020-09-29] MEDS: INSULIN GLARGINE (*BKC) 100 UNITS/ML 32 UNITS SUB-Q (09:18)
--- NOTE | 2020-09-29 12:32 | PM.IMPN ---
Progress Note: A&P Assessment and Plan (1) Seizure: Code(s): R56.9 - Unspecified convulsions Status: Acute Assessment and Plan: Likely due to prior frontal stroke Controlled on Keppra (2) Acute alteration in mental status: Code(s): R41.82 - Altered mental status, unspecified Status: Acute Assessment and Plan: Likely due to seizure, hyperglycemia, sepsis Improving slowly Due to her diabetes, prior stroke, and seizure disorder will discontinue quetiapine D/w brother at bedside that it is unlikely she will be able to live independently Ready for discharged to rehab when bed is available (3) UTI (urinary tract infection): Qualifiers: Hematuria presence: without hematuria Urinary tract infection type: site unspecified Qualified Code(s): N39.0 - Urinary tract infection, site not specified Code(s): N39.0 - Urinary tract infection, site not specified Status: Acute Assessment and Plan: Treated initially with IV Rocephin. Completing course of oral cefdinir (4) Diabetes mellitus: Qualifiers: Diabetes mellitus type: type 2 Diabetes mellitus dedicated intermodal truck driver insulin use: with dedicated intermodal truck driver use Diabetes mellitus complication status: with hyperglycemia Qualified Code(s): E11.65 - Type 2 diabetes mellitus with hyperglycemia; Z79.4 - intermediate project manager (current) use of insulin Code(s): E11.9 - Type 2 diabetes mellitus without complications Status: Acute Assessment and Plan: Continue basal and sliding scale insulin (5) Hypertension: Qualifiers: Hypertension type: unspecified Qualified Code(s): I10 - Essential (primary) hypertension Code(s): I10 - Essential (primary) hypertension Status: Acute Assessment and Plan: Continue home meds (6) Hypothyroidism: Qualifiers: Hypothyroidism type: acquired Qualified Code(s): E03.9 - Hypothyroidism, unspecified Code(s): E03.9 - Hypothyroidism, unspecified Status: Acute Assessment and Plan: continue levothyroxine (7) Sepsis: Qualifiers: Sepsis type: sepsis due to unspecified organism Sepsis acute organ dysfunction status: with acute organ dysfunction Severe sepsis acute organ dysfunction type: encephalopathy Severe sepsis shock status: without septic shock Qualified Code(s): A41.9 - Sepsis, unspecified organism; R65.20 - Severe sepsis without septic shock; G93.40 - Encephalopathy, unspecified Code(s): A41.9 - Sepsis, unspecified organism Status: Acute Assessment and Plan: Secondary to UTI Resolved (8) Completed stroke: Code(s): I63.9 - Cerebral infarction, unspecified Status: Acute Assessment and Plan: Left frontal Date of onset uncertain CTA of head and neck negative for significant atherosclerosis Telemetry thus far negative for atrial fibrillation Subjective Date/time seen: 09/29/20 12:32 Interval history: Admitted with seizure, encephalopathy, uncontrolled DM2. 09/29: Brother at bedside. Notes that though she is right-handed, she is doing everything with her left hand. She denied pain or shortness of breath. Appetite good. Mood good. Review of Systems Review of Systems: All systems reviewed & are unremarkable except as noted in HPI and below Exam Narrative: Exam Narrative: HEENT: EOMI, PERRL, sclerae nonicteric, pharyngeal mucosa pink and intact NECK: No JVD CHEST: Clear to auscultation. Normal effort. HEART: NL S1/S2, regular, no murmur ABDOMEN: BS+, soft, nontender, no mass, no bruits EXTREMITIES: No cyanosis, edema, or clubbing NEUROLOGIC: CN intact and symmetric to inspection. Deep tendon reflexes intact biceps triceps knees and trace at the ankles. Babinski's negative bilaterally. Iopoza-kv-prbj intact bilaterally. Right fix. No drift noted. Right-sided neglect noted. MUSCULOSKELETAL: Tone and strength symmetric. PSYCH: Alert. Oriented to person, place, but th
[2020-09-29 13:03] LABS: Glucose Point of Care 239 (65-105)
[2020-09-29] MEDS: INSULIN ASPART (*BKC) 100 UNITS/ML SUB-Q (13:20)
[2020-09-29] MEDS: POTASSIUM CHLORIDE 20 MEQ TABLET 40 MEQ PO (13:23)
[2020-09-29 15:33] LABS: Glucose Point of Care 86 (65-105)
[2020-09-29] MEDS: GLUCOSE ORAL GEL 15 GM OF GLUCSE IN 37.5 GM TUBE PO (17:37)
[2020-09-29 18:22] LABS: Glucose Point of Care 49 (65-105)
[2020-09-29 18:23] LABS: Glucose Point of Care 110 (65-105)
[2020-09-29 18:23] LABS: Glucose Point of Care 73 (65-105)
[2020-09-29] MEDS: LABETALOL HCL INJ 100 MG/20 ML VIAL 20 MG IV PUSH (21:27)
[2020-09-29 21:44] LABS: Glucose Point of Care 293 (65-105)
[2020-09-30] VITALS (10 sets, daily range): BP systolic 150–158; BP diastolic 70–77; PULSE 76–103; RESP 16–20; TEMP 36.4–36.6; O2SAT 98–99
[2020-09-30] MEDS: LEVOTHYROXINE SODIUM INJ 100 MCG/5 ML VIAL 87.5 MCG IV PUSH (06:13)
[2020-09-30] MEDS: SODIUM CHLORIDE 0.9% IV 1,000 ML 50 ML IV CONT (06:17)
[2020-09-30 08:06] LABS: Glucose Point of Care 276 (65-105)
[2020-09-30] MEDS: INSULIN ASPART (*BKC) 100 UNITS/ML SUB-Q ×2 (08:09→12:49)
[2020-09-30] MEDS: INSULIN GLARGINE (*BKC) 100 UNITS/ML 32 UNITS SUB-Q (08:11)
[2020-09-30] MEDS: CEFDINIR 300 MG CAPSULE PO (08:14)
[2020-09-30] MEDS: ASPIRIN 81 MG ENTERIC TABLET PO (08:14)
[2020-09-30] MEDS: ENOXAPARIN 40 MG/0.4 ML SYRINGE SUB-Q (08:15)
[2020-09-30] MEDS: levETIRAcetam Tablet 250 MG, levETIRAcetam Tablet 500 MG 750 MG PO ×2 (08:21→20:02)
[2020-09-30] MEDS: LORazepam INJ (*CRX) 2 MG/ML VIAL 0.5 MG IV PUSH (11:40)
[2020-09-30 12:29] LABS: Glucose Point of Care 269 (65-105)
--- NOTE | 2020-09-30 13:44 | PC.NURSE ---
Moved patient to room 344. All belongings with patient. Doctors and family notified.
--- NOTE | 2020-09-30 13:46 | PM.IMPN ---
Progress Note: A&P Assessment and Plan (1) Seizure: Code(s): R56.9 - Unspecified convulsions Status: Acute Assessment and Plan: Likely due to prior frontal stroke Controlled on Keppra (2) Acute alteration in mental status: Code(s): R41.82 - Altered mental status, unspecified Status: Acute Assessment and Plan: Likely due to seizure, hyperglycemia, sepsis Improved initially, now seems to have plateued Due to her diabetes, prior stroke, and seizure disorder will discontinue quetiapine 09/29 D/w brother at bedside that it is unlikely she will be able to live independently and he spoke to son who was accepting Ready for discharged to rehab when bed is available (3) UTI (urinary tract infection): Qualifiers: Hematuria presence: without hematuria Urinary tract infection type: site unspecified Qualified Code(s): N39.0 - Urinary tract infection, site not specified Code(s): N39.0 - Urinary tract infection, site not specified Status: Acute Assessment and Plan: Treated initially with IV Rocephin. Completing course of oral cefdinir 09/30 Repeat U/a due to symptoms, add pyridium (4) Diabetes mellitus: Qualifiers: Diabetes mellitus type: type 2 Diabetes mellitus exterminator insulin use: with senior care use Diabetes mellitus complication status: with hyperglycemia Qualified Code(s): E11.65 - Type 2 diabetes mellitus with hyperglycemia; Z79.4 - tank terminal gauger (current) use of insulin Code(s): E11.9 - Type 2 diabetes mellitus without complications Status: Acute Assessment and Plan: Continue basal and sliding scale insulin (5) Hypertension: Qualifiers: Hypertension type: unspecified Qualified Code(s): I10 - Essential (primary) hypertension Code(s): I10 - Essential (primary) hypertension Status: Acute Assessment and Plan: Continue home meds (6) Hypothyroidism: Qualifiers: Hypothyroidism type: acquired Qualified Code(s): E03.9 - Hypothyroidism, unspecified Code(s): E03.9 - Hypothyroidism, unspecified Status: Acute Assessment and Plan: continue levothyroxine (7) Sepsis: Qualifiers: Sepsis type: sepsis due to unspecified organism Sepsis acute organ dysfunction status: with acute organ dysfunction Severe sepsis acute organ dysfunction type: encephalopathy Severe sepsis shock status: without septic shock Qualified Code(s): A41.9 - Sepsis, unspecified organism; R65.20 - Severe sepsis without septic shock; G93.40 - Encephalopathy, unspecified Code(s): A41.9 - Sepsis, unspecified organism Status: Acute Assessment and Plan: Secondary to UTI Resolved (8) Completed stroke: Code(s): I63.9 - Cerebral infarction, unspecified Status: Acute Assessment and Plan: Left frontal Date of onset uncertain CTA of head and neck negative for significant atherosclerosis Telemetry thus far negative for atrial fibrillation Subjective Date/time seen: 09/30/20 13:46 Interval history: Admitted with seizure, encephalopathy, uncontrolled DM2. 09/30: Brother at bedside. Notes that though she is right-handed, she continues to do everything with her left hand. c/o urinary frequency, mild dysuria. She denied pain or shortness of breath. Appetite good. Mood good. Review of Systems Review of Systems: All systems reviewed & are unremarkable except as noted in HPI and below Exam Narrative: Exam Narrative: HEENT: EOMI, PERRL, sclerae nonicteric, pharyngeal mucosa pink and intact NECK: No JVD CHEST: Clear to auscultation. Normal effort. HEART: NL S1/S2, regular, no murmur ABDOMEN: BS+, soft, nontender, no mass, no bruits EXTREMITIES: No cyanosis, edema, or clubbing NEUROLOGIC: CN intact and symmetric to inspection. Deep tendon reflexes intact biceps triceps knees and trace at the ankles. Babinski's negative bilaterally. Gmnqrc-pc-coni intact bi
[2020-09-30 15:15] LABS: Add Urine Microscopic? YES; Appearance Urine Clear (Clear); Bilirubin Urine Negative (Negative); Blood Urine Negative (Negative); Color Urine Yellow (Yellow); Glucose Urine UA 3+ mg/dL (Negative); Ketones Urine Trace mg/dL (Negative); Leukocyte Esterase Ur Negative LEU/UL (Negative); Mucus Urine Rare /lpf; Nitrate Urine Negative (Negative); Protein Urine 1+ mg/dL (Negative); RBC Urine 0-2 /hpf (0-2); Specific Grav Ur 1.023 (1.001-1.035); Squamous Epithelial Cell Urine Rare /hpf (Few); Urobilinogen Urine Negative mg/dL (<2.0); WBC Urine 0-3 /hpf
[2020-09-30] MEDS: LORazepam INJ (*CRX) 2 MG/ML VIAL 1 MG IV PUSH ×2 (15:33→19:50)
[2020-09-30] MEDS: VALPROIC ACID INJ 500 MG in DEXTROSE 5% 100 ML 100 MG IVPB (15:57)
[2020-09-30] MEDS: OLANZapine 10 MG INJ VIAL 5 MG IM ×2 (16:51→18:25)
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
[2020-09-30 18:20] LABS: Glucose Point of Care 258 (65-105)
[2020-09-30] MEDS: PHENAZOPYRIDINE HCL 100 MG TABLET 200 MG PO (18:23)
[2020-09-30] MEDS: DIVALPROEX SODIUM ER 500 MG TAB.24H PO (20:02)
[2020-09-30 21:02] LABS: Glucose Point of Care 290 (65-105)
[2020-09-30] MEDS: HALOPERIDOL LACTATE 5 MG/ML VIAL IM (23:10)
[2020-10-01] VITALS (8 sets, daily range): BP systolic 118–119; BP diastolic 60–63; PULSE 85–95; RESP 16–18; TEMP 35.9–36.2; O2SAT 96–97
[2020-10-01] MEDS: HALOPERIDOL LACTATE 5 MG/ML VIAL IM (05:56)
[2020-10-01 06:07] LABS: Hematocrit 42.3 % (37.0-47.0); Hemoglobin 12.7 g/dL (12.0-15.0); Mean Corpuscular Hemoglobin 21.8 pg (26-34); Mean Corpuscular Volume 72.7 fl (80-100); Mean Platelet Volume 11.7 fl (7.4-10.4); Platelet Count Result 230 k/mm3 (150-375); Red Blood Count 5.82 M/mm3 (4.2-5.4); Red Cell Distribution Width 20.3 % (11.5-14.5); White Blood Count 6.7 K/mm3 (4.5-10.0)
[2020-10-01 06:24] LABS: Alanine Aminotransferase 33 U/L (4-35); Albumin Level 4.2 g/dL (3.5-5.1); Alkaline Phosphatase 80 U/L (38-126); Anion Gap 7 mmol/L (8-16); Aspartate Amino Transferase 37 U/L (14-36); Bilirubin,Total 0.8 mg/dL (0.2-1.3); Blood Urea Nitrogen 16 mg/dL (7-17); Calcium 9.8 mg/dL (8.4-10.2); Carbon Dioxide 33 mmol/L (22-30); Chloride 98 mmol/L (98-107); Estimated CRCL calculation 49 ml/min; Estimated Glomerular Filt Rate > 60; Glucose 468 mg/dL (65-105); Potassium 4.7 mmol/L (3.4-5.0); Sodium 138 mmol/L (137-145)
--- NOTE | 2020-10-01 06:39 | PC.NURSE ---
Patient awoke very confused and combative with staff. Jodie matos called at 0550. Dr Deluca orderd haladol 5mg IM. Patient now sleeping comfortably. Will continue to monitor.
[2020-10-01 07:35] LABS: Valproic Acid 67.8 ug/mL (50-120)
[2020-10-01] MEDS: INSULIN ASPART (*BKC) 100 UNITS/ML SUB-Q ×2 (07:36→11:38)
[2020-10-01 07:38] LABS: Glucose Point of Care 396 (65-105)
[2020-10-01] MEDS: Please add drug allergy info to patient profile. XX (07:39)
[2020-10-01] MEDS: INSULIN GLARGINE (*BKC) 100 UNITS/ML 32 UNITS SUB-Q (07:40)
[2020-10-01 07:44] LABS: Free T4 Free Thyroxine 1.84 ng/mL (0.78-2.19)
--- NOTE | 2020-10-01 11:27 | PCOTNOTE ---
Attempted to see patient, patient unable to be aroused. Will attempt again later today if possible to see, or continue plan of care tomorrow 10/02/20.
[2020-10-01] MEDS: PHENAZOPYRIDINE HCL 100 MG TABLET 200 MG PO (11:41)
[2020-10-01 12:16] LABS: Glucose Point of Care 323 (65-105)
[2020-10-01] MEDS: levETIRAcetam Tablet 250 MG, levETIRAcetam Tablet 500 MG 750 MG PO (12:16)
--- NOTE | 2020-10-01 12:39 | PM.IMPN ---
Progress Note: A&P Assessment and Plan (1) Seizure: Code(s): R56.9 - Unspecified convulsions Status: Acute Assessment and Plan: Likely due to prior frontal stroke Controlled on Keppra orally (2) Acute alteration in mental status: Code(s): R41.82 - Altered mental status, unspecified Status: Acute Assessment and Plan: Likely due to seizure, hyperglycemia, sepsis Pt can discharge to rehab when bed is available Haldol given to patient yesterday night (3) UTI (urinary tract infection): Qualifiers: Hematuria presence: without hematuria Urinary tract infection type: site unspecified Qualified Code(s): N39.0 - Urinary tract infection, site not specified Code(s): N39.0 - Urinary tract infection, site not specified Status: Acute Assessment and Plan: Treated initially with IV Rocephin. Completing course of oral cefdinir / Repeat U/a due to symptoms, add pyridium (4) Diabetes mellitus: Qualifiers: Diabetes mellitus type: type 2 Diabetes mellitus director of front office insulin use: with director of front office use Diabetes mellitus complication status: with hyperglycemia Qualified Code(s): E11.65 - Type 2 diabetes mellitus with hyperglycemia; Z79.4 - physical trainer (current) use of insulin Code(s): E11.9 - Type 2 diabetes mellitus without complications Status: Acute Assessment and Plan: Continue basal and sliding scale insulin (5) Hypertension: Qualifiers: Hypertension type: unspecified Qualified Code(s): I10 - Essential (primary) hypertension Code(s): I10 - Essential (primary) hypertension Status: Acute Assessment and Plan: Continue home meds (6) Hypothyroidism: Qualifiers: Hypothyroidism type: acquired Qualified Code(s): E03.9 - Hypothyroidism, unspecified Code(s): E03.9 - Hypothyroidism, unspecified Status: Acute Assessment and Plan: continue levothyroxine (7) Sepsis: Qualifiers: Sepsis type: sepsis due to unspecified organism Sepsis acute organ dysfunction status: with acute organ dysfunction Severe sepsis acute organ dysfunction type: encephalopathy Severe sepsis shock status: without septic shock Qualified Code(s): A41.9 - Sepsis, unspecified organism; R65.20 - Severe sepsis without septic shock; G93.40 - Encephalopathy, unspecified Code(s): A41.9 - Sepsis, unspecified organism Status: Acute Assessment and Plan: Secondary to UTI Resolved (8) Completed stroke: Code(s): I63.9 - Cerebral infarction, unspecified Status: Acute Assessment and Plan: Left frontal Date of onset uncertain CTA of head and neck negative for significant atherosclerosis Additional Plan Acute on top of chronic hypercapnic respiratory failure resolved postictal sleep study as outpatient Subjective Date/time seen: 10/01/20 12:39 Interval history: Admitted with seizure, encephalopathy, uncontrolled DM2. Pt had haldol last night at she was agitated, pt is fast asleep today. Review of Systems Review of Systems: All systems reviewed & are unremarkable except as noted in HPI and below Exam Narrative: Exam Narrative: GENERALLY: Pt is fast asleep HEENT:MARIFER NECK: No JVD CHEST: Clear to auscultation. Normal effort. HEART: NL S1/S2, regular, no murmur ABDOMEN: BS+, soft, nontender, no mass, no bruits EXTREMITIES: No cyanosis, edema, or clubbing NEUROLOGIC: CN intact and symmetric to inspection. MUSCULOSKELETAL: Tone and strength symmetric. PSYCH: Alert. Oriented to person, place Objective Data Vital Signs Vital Signs: Vital Signs - 24 hr 09/30/20 16:00 09/30/20 18:50 09/30/20 20:00 Temperature 36.5 C Pulse Rate 103 H 98 98 Respiratory Rate 16 Blood Pressure 158/70 H Pulse Oximetry 99 09/30/20 22:00 10/01/20 00:00 10/01/20 04:00 Temperature 36.6 C Pulse Rate 98 91 89 Respiratory Rate 20 Blood Pressure 150/73 H
--- NOTE | 2020-10-01 15:27 | PCOTNOTE ---
Attempted OT session with patient, but was advised by nursing to let patient rest today as patient was not following commands and was recently given medication that causes sedation.
[2020-10-01 16:32] LABS: Glucose Point of Care 157 (65-105)
[2020-10-01 18:48] LABS: SARS-CoV-2 RNA PCR Negative
[2020-10-02] VITALS: PULSE 97
[2020-10-02 03:53] LABS: Glucose Point of Care 167 (65-105)
[2020-10-02 04:00] VITALS: PULSE 92
--- NOTE | 2020-10-02 05:03 | PC.NURSE ---
Pt unwilling to follow directions, refusing to cooperate with staff throughout shift. Claudia Diamond, and Shiela house registry rn both made aware. staff continued to monitor and check on pt through the night without aggravating pt.
[2020-10-02 05:23] VITALS: BP 140/84; PULSE 90; RESP 17; TEMP 36.5; O2SAT 99
[2020-10-02] MEDS: LEVOTHYROXINE SODIUM 100 MCG, LEVOTHYROXINE SODIUM 75 MCG 175 MCG PO (05:42)
[2020-10-02] MEDS: PHENAZOPYRIDINE HCL 100 MG TABLET 200 MG PO ×2 (07:58→11:46)
[2020-10-02] MEDS: levETIRAcetam Tablet 250 MG, levETIRAcetam Tablet 500 MG 750 MG PO (07:59)
[2020-10-02 08:00] VITALS: PULSE 101
[2020-10-02] MEDS: ASPIRIN 81 MG ENTERIC TABLET PO (08:00)
[2020-10-02] MEDS: ENOXAPARIN 40 MG/0.4 ML SYRINGE SUB-Q (08:01)
[2020-10-02] MEDS: INSULIN GLARGINE (*BKC) 100 UNITS/ML 32 UNITS SUB-Q (08:01)
[2020-10-02] MEDS: INSULIN ASPART (*BKC) 100 UNITS/ML SUB-Q (11:45)
[2020-10-02 11:47] LABS: Glucose Point of Care 322 (65-105)
--- NOTE | 2020-10-03 09:10 | DS_ITS ---
I AGREE WITH DISCHARGE SUMMARY DS: Admitting Diagnosis Admitting Diagnosis Admitting Diagnosis: DISCHARGE DATE 10/02/2020 Altered mental status DS: Discharge Diagnosis Discharge Diagnosis (1) Altered mental status: Qualifiers: Altered mental status type: unspecified Qualified Code(s): R41.82 - Altered mental status, unspecified Code(s): R41.82 - Altered mental status, unspecified Status: Resolved Assessment and Plan: Likely secondary to metabolic acidosis and severe dehydration from DKA. [facility] un[facility]able for acute pathology. Pt is better now after DKA and septic shock have been treated. Acute encephalopathy: Probably related to UTI and seizure continue Keppra. SP EEG and MRI brain and CT Head Status post IV Ativan Keppra neurology recommendation appreciated continue Keppra for now (2) DKA (diabetic ketoacidoses): Qualifiers: Diabetes mellitus complication detail: without coma Diabetes mellitus type: type 1 Qualified Code(s): E10.10 - Type 1 diabetes mellitus with ketoacidosis without coma Code(s): E11.10 - Type 2 diabetes mellitus with ketoacidosis without coma Status: Resolved Assessment and Plan: Patient is in acute DKA with hyperglycemia (3) Septic shock: Code(s): A41.9 - Sepsis, unspecified organism; R65.21 - Severe sepsis with septic shock Status: Resolved Assessment and Plan: With severely elevated white blood cell count elevated lactic acid, tachypnea and tachycardia. Pt treated for UTI. (4) Hematemesis: Qualifiers: Nausea presence: unspecified Qualified Code(s): K92.0 - Hematemesis Code(s): K92.0 - Hematemesis Status: Resolved Assessment and Plan: May be secondary to a ruptured blood vessel from retching and vomiting. (5) Dehydration: Code(s): E86.0 - Dehydration Status: Resolved Assessment and Plan: Secondary to acute DKA, nausea, and vomiting. After hydration (6) Elevated lactic acid level: Code(s): R79.89 - Other specified abnormal findings of blood chemistry Status: Resolved Assessment and Plan: Secondary to metabolic acidosis from DKA And severe dehydration. And UTI (7) Thrombocytosis: Code(s): D47.3 - Essential (hemorrhagic) thrombocythemia Status: Acute Assessment and Plan: Likely secondary to acute dehydration. Monitor serum platelets (8) Hyponatremia: Code(s): E87.1 - Hypo-osmolality and hyponatremia Status: Resolved Assessment and Plan: Appears to be pseudohyponatremia from hyperglycemia. (9) Hyperkalemia: Code(s): E87.5 - Hyperkalemia Status: Resolved Assessment and Plan: Likely secondary to acute renal failure and metabolic acidosis. (10) Acute renal failure: Code(s): N17.9 - Acute kidney failure, unspecified Status: Resolved Assessment and Plan: Likely secondary to dehydration from nausea and vomiting. after fluids (11) Hyperbilirubinemia: Code(s): E80.6 - Other disorders of bilirubin metabolism Status: Acute Assessment and Plan: Check total and fractionated bilirubin. Consider right upper quadrant ultrasound and further studies (12) Hypothyroid: Qualifiers: Hypothyroidism type: acquired Qualified Code(s): E03.9 - Hypothyroidism, unspecified Code(s): E03.9 - Hypothyroidism, unspecified Status: Chronic Assessment and Plan: Pt had IV levothyroxine. Transition back to oral levothyroxine when the patient is eating again. (13) Marijuana use: Code(s): F12.90 - Cannabis use, unspecified, uncomplicated Status: Chronic Assessment and Plan: History of use
--- NOTE | 2020-11-01 08:38 | PM.DS ---
DS: Admitting Diagnosis Admitting Diagnosis Admitting Diagnosis: DISCHARGE DATE 10/02/2020 Altered mental status DS: Summary Hospital Course Reason for hospitalization: [facility] Hospital Course: Hospital Course: Patient 62-year-old female presents the emergency department with EMS unresponsiveness and posturing. Patient was last seen normal on Thursday. Patient arrived with gaze, pinpoint pupils and non responsive state. She has shaking of left leg and arms in decorticate position. During CT, patient raised left arm p which became stiff. She arrived on 4L nasal cannula. Per records she was recently discharged from the hospital from [facility] for hyperglycemia and TIA. See notes below. Time Spent with Patient Time attestation: Total time spent providing and/or coordinating discharge services: 40 minutes on day of discharge Exam Const: Other: General: tired appearing Nutritional Appearance: well nourished HENMT: Other: Head: normal to inspection General nose exam: Normal external nose present Face and sinus: normal facial exam Eyes: Other: Pupils: Equal, round and reactive pupils present Neck: Other: Neck: supple and no JVD Thyroid: thyroid normal Lymphatic: lymphadenopathy not noted Resp: Other: Effort & Inspection: tachypneic Auscultation: clear to auscultation bilaterally Cardio: Other: Rate: tachycardic Rhythm: regular rhythm Heart sounds: no murmurs GI: Other: Inspection: normal to inspection Auscultation: normal bowel sounds Skin: Other: General skin exam: excoriation ( On right upper back. bruising is noted on back. ) Neuro: Other: General: patient obtunded Cranial nerves: Yes CN's II-XII intact bilaterally and Yes Equal, round and reactive pupils present Extrem: Other: General: normal to inspection and no edema Discharge Plan Discharge Attending physician on discharge: Pita Weaver Consulting providers: Lito Kemp ; Rick Jurado Mahmud M.A. ; Renny Hickman ; Tao Grande ; Yumiko Chapman ; Everton Trent ; Atif Fisher V. Discharging Clinician: Pita Weaver Patient Disposition: SNF Activity: as tolerated Diet: as tolerated and regular Patient Instructions: Transient Ischemic Attack (DC), How to Stop Smoking (DC), Pain Management in Older Adults (DC), New-Onset Seizure in Adults (DC) Stand Alone Forms: General Discharge Information Discharge Medications: New levothyroxine [Synthroid] 175 mcg Tablet 175 mcg PO DAILY@0630 Qty: 60 RF: 0 aspirin 81 mg Tablet,Delayed Release (Dr/Ec) 81 mg PO QAM Qty: 90 RF: 0 divalproex [Depakote ER] 500 mg Tablet Extended Release 24 Hr 500 mg PO HS Qty: 90 RF: 0 levetiracetam 750 mg Tablet 750 mg PO Q12HR Qty: 60 RF: 2 melatonin 5 mg Tablet 5 mg PO HS Qty: 60 RF: 0 Continued Fiasp U-100 Insulin 100 unit/mL solution See Rx Instructions subcut DAILY 90 Days Qty: 60 RF: 1 insulin aspart U-100 [Novolog U-100 Insulin aspart] 100 unit/mL Solution 4 - 8 unit subcut TIDWM Qty: 10 RF: 0 aspirin 81 mg tablet,delayed release (DR/EC) 81 mg PO DAILY 30 Days Qty: 30 RF: 0 oxybutynin chloride 5 mg tablet 15 mg PO TID 30 Days Qty: 30 RF: 0 cholecalciferol (vitamin D3) 1,000 unit capsule 1,000 unit PO DAILY 30 Days Qty: 30 RF: 0 biotin 1,000 mcg tablet,chewable 1,000 mcg PO DAILY 30 Days Qty: 30 RF: 0 levothyroxine 175 mcg tablet 175 mcg PO DAILY RF: 0 oxycodone-acetaminophen 10-325 mg tablet 1 tablet PO BID RF: 0 nadolol 40 mg tablet 60 mg PO DAILY RF: 0 insulin lispro [Humalog U-100 Insulin] 100 unit/mL solution 10 unit subcut AC RF: 0 Myrbetriq 50 mg tablet extended release 24 hr 50 mg PO DAILY RF: 0 gabapentin 300 mg capsule 600 mg PO TID 30 Days Qty: 180 RF: 1 atorvastatin [Lipitor] 20 mg tablet 20 mg PO DAILY 30 Days Qty: 90 RF: 2 trazodone 100 mg tablet 100 mg PO DAILY 30 Days Qty: 60 RF: 2 Changed Lantus
== END 2020-10-02 12:15 | DRG 871 ==
LOC: ANHED 09-21 03:06 → ANHICU 09-21 03:18 → ANH3MED 10-02 12:02 → ANHICU 10-03 11:09 → ANHIMU 10-03 11:09
PROVIDERS: Internal Medicine; Admitting Provider Internal Medicine; Emergency Provider Emergency Medicine; PCP Family Medicine; Visit Provider Family Medicine
DX: A41.9 Sepsis, unspecified organism (principal); J96.02 Acute respiratory failure with hypercapnia; N39.0 Urinary tract infection, site not specified; G93.40 Encephalopathy, unspecified; E87.2 Acidosis; G40.901 Epilepsy, unspecified, not intractable, with status epilepticus; E86.0 Dehydration; E11.9 Type 2 diabetes mellitus without complications; F12.90 Cannabis use, unspecified, uncomplicated; E03.9 Hypothyroidism, unspecified; Z20.822 Contact with and (suspected) exposure to COVID-19
CPT/HCPCS: 36415; 36600; 70450; 70496; 70498; 70551; 71045; 80048; 80053; 80076; 80164; 80307; 81001; 81025; 82140; 82550; 82805; 82948; 83605; 83735; 84439; 84443; 84481; 84484; 85025; 85027; 85055; 85610; 85730; 87040; 87086; 92610; 93005; 93306; 94002; 94003; 94660; 95816; 96361; 96365; 96372; 96375; 97110; 97116; 97161; 97165; 97530; 97535; 99285; A9270; C9803; G0378; J0360; J0696; J1630; J1650; J1815; J1953; J2060; J2405; J3480; J7030; Q9967; U0003; U0005